=== PATIENT | male | born 1965 | race Caucasian/White ===

== ENCOUNTER 2017-05-19 21:11 | Emergency (ER) | payer OTHER ==
[2017-05-19] MEDS ORDERED: RX INFO: IV CONTRAST WAS GIVEN 1 EACH MISC MISCELLANE PRN (22:57)
[2017-05-19] MEDS ORDERED: SODIUM CHLORIDE 0.9% 1,000 ML IV STA ×2 (22:57)
--- NOTE | 2017-05-19 23:01 | ED ---
General Adult HPI - General Chief complaint: Back Pain/Injury Stated complaint: Back Pain Time Seen by Provider: 05/19/17 22:44 Source: patient, RN notes reviewed Mode of arrival: ambulatory Limitations: no limitations - History of Present Illness Initial comments: Patient 52-year-old male who presents emergency room today with chief complaint of increased left upper back pain over the last month. He does admit that he had a fall when he was walking bathroom and believes he passed out. He states he's had some pain in her left shoulder area since. He states worse with movements. He states he began feeling began a few days ago. Patient does admit that he had a fall. Patient does admit that he has felt a little short of breath over the last few days with this pain. Patient denies any other complaints or associated symptoms. Patient denies any recent fever, chills, chest pain, abdominal pain, nausea or vomiting, numbness or tingling, dysuria or hematuria, constipation or diarrhea, headaches or visual changes, or any other complaints. - Related Data Home Medications Medication Instructions Recorded Confirmed Adalimumab [Humira] 40 mg SQ Q14D 05/19/17 05/19/17 Folic Acid 1 mg PO DAILY 05/19/17 05/19/17 Methotrexate Sodium [Methotrexate] 12.5 mg PO SUAZO 05/19/17 05/19/17 Previous Rx's Medication Instructions Recorded Cyclobenzaprine [Flexeril] 10 mg PO TID #20 tab 05/20/17 Ibuprofen [Motrin] 600 mg PO Q6HR PRN #40 day 05/20/17 Allergies Allergy/AdvReac Type Severity Reaction Status Date / Time codeine Allergy Nausea & Verified 05/19/17 23:03 Vomiting Review of Systems ROS Statement: Those systems with pertinent positive or pertinent negative responses have been documented in the HPI. ROS Other: All systems not noted in ROS Statement are negative. Past Medical History Past Medical History: No Reported History Additional Past Medical History / Comment(s): arthritis History of Any Multi-Drug Resistant Organisms: None Reported Past Surgical History: No Surgical Hx Reported Past Psychological History: No Psychological Hx Reported Smoking Status: Current every day smoker Past Alcohol Use History: Daily Past Drug Use History: None Reported General Exam - General Exam Comments Initial Comments: General: The patient is awake and alert, in no distress, and does not appear acutely ill. Eye: Pupils are equal, round and reactive to light, extra-ocular movements are intact. No nystagmus. There is normal conjunctiva bilaterally. No signs of icterus. Ears, nose, mouth and throat: There are moist mucous membranes and no oral lesions. Neck: The neck is supple, there is no tenderness or JVD. Cardiovascular: There is a regular rate and rhythm. No murmur, rub or gallop is appreciated. Respiratory: Lungs are clear to auscultation, respirations are non-labored, breath sounds are equal. No wheezes, stridor, rales, or rhonchi. Gastrointestinal: Soft, non-distended, non-tender abdomen without masses or organomegaly noted. There is no rebound or guarding present. No CVA tenderness. Bowel sounds are unremarkable. Musculoskeletal: Normal ROM, no tenderness. Strength 5/5. Sensation intact. Pulses equal bilaterally 2+. Neurological: A&O x 3. CN II-XII intact, There are no obvious motor or sensory deficits. Coordination appears grossly intact. Speech is normal. Skin: Skin is warm and dry and no rashes or lesions are noted. Psychiatric: Cooperative, appropriate mood & affect, normal judgment. Limitations: no limitations Course Vital Signs 05/19/17 05/20/17 05/20/17 21:16 00:58 01:00 Temperature 98.1 F 98.8 F Pulse Rate 120 H 89 90 Respiratory 22 16 17 Rate Blood Pressure 145/90 128/70 115/71 O2 Sat by Pulse 97 99 98 Oximetry Medical Decision Making - Medical Decision Making Patient's labs been reviewed. Case discussed and seen by attending physician . Patient's pain is reproducible on exam. Patient's repeat vitals are stable. His CAT scan of the chest is negative for any sign of PE. At this time patient will be discharged home as he is more comfortable and advised follow-up family doctor tomorrow. - Lab Data Result diagrams: 05/19/17 23:15 05/19/17 23:15 Lab Results 05/19/17 05/19/17 05/19/17 Range/Units 23:15 23:15 23:15 WBC 8.7 (3.8-10.6) k/uL RBC 5.15 (4.30-5.90) m/uL Hgb 17.6 H (13.0-17.5) gm/dL Hct 53.0 (39.0-53.0) % MCV 102.9 H (80.0-100.0) fL MCH 34.1 (25.0-35.0) pg MCHC 33.1 (31.0-37.0) g/dL RDW 13.9 (11.5-15.5) % Plt Count 266 (150-450) k/uL Neutrophils % 75 % Lymphocytes % 14 % Monocytes % 9 % Eosinophils % 1 % Basophils % 1 % Neutrophils # 6.5 (1.3-7.7) k/uL Lymphocytes # 1.2 (1.0-4.8) k/uL Monocytes # 0.8 (0-1.0) k/uL Eosinophils # 0.1 (0-0.7) k/uL Basophils # 0.1 (0-0.2) k/uL Macrocytosis Slight Sodium 131 L (137-145) mmol/L Potassium 4.1 (3.5-5.1) mmol/L Chloride 95 L (98-107) mmol/L Carbon Dioxide 25 (22-30) mmol/L Anion Gap 11 mmol/L BUN 2 L (9-20) mg/dL Creatinine 0.60 L (0.66-1.25) mg/dL Est GFR (MDRD) Af Amer >60 (>60 ml/min/1.73 sqM) Est GFR (MDRD) Non-Af >60 (>60 ml/min/1.73 sqM) Glucose 103 H (74-99) mg/dL Calcium 9.7 (8.4-10.2) mg/dL Total Bilirubin 1.1 (0.2-1.3) mg/dL AST 172 H (17-59) U/L ALT 158 H (21-72) U/L Alkaline Phosphatase 108 (38-126) U/L Total Creatine Kinase 62 (55-170) U/L CK-MB (CK-2) 0.9 (0.0-2.4) ng/mL CK-MB (CK-2) Rel Index 1.5 Troponin I <0.012 (0.000-0.034) ng/mL Total Protein 7.2 (6.3-8.2) g/dL Albumin 4.4 (3.5-5.0) g/dL Disposition Clinical Impression: Back strain Disposition: HOME SELF-CARE Condition: Good Instructions: Thoracic Back Strain (ED) Additional Instructions: Please use medication as discussed. Please follow-up with family doctor in the next 2 days. Please return to emergency room if the symptoms increase or worsen or for any other concerns. Prescriptions: Cyclobenzaprine [Flexeril] 10 mg PO TID #20 tab Ibuprofen [Motrin] 600 mg PO Q6HR PRN #40 day PRN Reason: Pain Referrals: Rafael Quevedo MD [Primary Care Provider] - 1-2 days Time of Disposition: 01:16
[2017-05-19 23:28] LABS: Basophils # (A) 0.1 k/uL (0-0.2); Basophils % (A) 1 %; CH 35.6; CHCM 34.7; Eosinophils # (A) 0.1 k/uL (0-0.7); Eosinophils % (A) 1 %; HGB 17.6 gm/dL (13.0-17.5); Luc # (Auto) 0.09; Luc % (Auto) 1; Lymphocytes # (A) 1.2 k/uL (1.0-4.8); Lymphocytes % (A) 14 %; MCH 34.1 pg (25.0-35.0); MCHC 33.1 g/dL (31.0-37.0); MCV 102.9 fL (80.0-100.0); Macrocytosis Slight; Mean Platelet Volume 8.1; Monocytes # (A) 0.8 k/uL (0-1.0); Monocytes % (A) 9 %; Neutrophils # (A) 6.5 k/uL (1.3-7.7); Neutrophils % (A) 75 %; RBC 5.15 m/uL (4.30-5.90); RDW 13.9 % (11.5-15.5); WBC 8.7 k/uL (3.8-10.6); WBC (Perox) 8.04
[2017-05-19 23:39] LABS: ALT 158 U/L (21-72); AST 172 U/L (17-59); Alkaline Phosphatase 108 U/L (38-126); Anion Gap 11 mmol/L; Blood Urea Nitrogen 2 mg/dL (9-20); Calcium 9.7 mg/dL (8.4-10.2); Carbon Dioxide 25 mmol/L (22-30); Chloride 95 mmol/L (98-107); Glucose 103 mg/dL (74-99); Non-African American GFR(MDRD) >60 (>60 ml/min/1.73 sqM); Potassium 4.1 mmol/L (3.5-5.1); Sodium 131 mmol/L (137-145); Total Bilirubin 1.1 mg/dL (0.2-1.3); Total Protein 7.2 g/dL (6.3-8.2)
[2017-05-19 23:47] LABS: Creatine Kinase 62 U/L (55-170)
[2017-05-20] LABS: Creatine Kinase MB 0.9 ng/mL (0.0-2.4); Troponin I <0.012 ng/mL (0.000-0.034)
--- NOTE | 2017-05-20 00:23 | CT ---
EXAM: CT Angiography Chest With Intravenous Contrast CLINICAL HISTORY: Reason: pain TECHNIQUE: Axial computed tomographic angiography images of the chest with intravenous contrast using pulmonary embolism protocol. DLP is 125.70 mGy-cm. This CT exam was performed using one or more of the following dose reduction techniques: automated exposure control, adjustment of the mA and/or kV according to patient size, and/or use of iterative reconstruction technique. MIP reconstructed images were created and reviewed. CONTRAST: 82 mL of omni 350 administered intravenously. COMPARISON: No relevant prior studies available. FINDINGS: Pulmonary arteries: Unremarkable. No pulmonary embolism. Aorta: No acute findings. No thoracic aortic aneurysm. Lungs: Severe centrilobular emphysema. Right upper lobe fibrosis. No mass. Pleural space: Unremarkable. No significant effusion. No pneumothorax. Heart: Unremarkable. No cardiomegaly. No significant pericardial effusion. No evidence of RV dysfunction. Bones/joints: No acute fracture. No dislocation. Soft tissues: Unremarkable. Lymph nodes: Unremarkable. No enlarged lymph nodes. IMPRESSION: No acute findings. Severe centrilobular emphysema with right upper lobe fibrosis.
[2017-05-20 01:36] VITALS: BP 120/83; PULSE 72; RESP 18; TEMP 98.1
== END 2017-05-20 01:37 | disposition home or self-care (01) ==
LOC: EC 21:11
DX: S29.012A Strain of muscle and tendon of back wall of thorax, initial encounter (principal); R00.0 Tachycardia, unspecified; M25.512 Pain in left shoulder; R06.02 Shortness of breath; M19.90 Unspecified osteoarthritis, unspecified site; F17.200 Nicotine dependence, unspecified, uncomplicated; Z79.899 Other long term (current) drug therapy; Z88.5 Allergy status to narcotic agent; Y93.01 Activity, walking, marching and hiking; W19.XXXA Unspecified fall, initial encounter
CPT/HCPCS: 36415; 71275; 80053; 82550; 82553; 84484; 85025; 93005; 96360; 96361; 99284

== ENCOUNTER 2019-02-18 15:59 | Emergency (ER) | payer OTHER ==
[2019-02-18] MEDS ORDERED: SODIUM CHLORIDE 0.9% 1,000 ML IV STA (16:32)
--- NOTE | 2019-02-18 16:33 | ED ---
General Adult HPI - General Source: patient, RN notes reviewed Mode of arrival: ambulatory Limitations: no limitations <Kirill Patel - Last Filed: 02/18/19 16:32> <Doyle Dunn - Last Filed: 02/18/19 18:57> - General Chief complaint: Recheck/Abnormal Lab/Rx Stated complaint: Low potassium Time Seen by Provider: 02/18/19 16:28 - History of Present Illness Initial comments: This a 54-year-old male presents emergency Department with chief complaint of low potassium. Patient states he had an appointment today with Dr. Dixon who sent him over here secondary to potassium of 2.6. Patient states he had his labs done a few weeks ago. He denies any complaints this time. He did state that he had a recent EKG a few weeks ago which was normal though they told him that his heart rate is elevated today. He denies chest pain, shortness breath, headache or dizziness. He does have underlying rheumatoid arthritis in which she takes Humira and methotrexate but he was told to discontinue methotrexate today. He denies any excessive alcohol intake, diarrhea or vomiting. (Kirill Patel) - Related Data Home Medications Medication Instructions Recorded Confirmed Adalimumab [Humira] 40 mg SQ Q14D 05/19/17 02/18/19 Folic Acid 1 mg PO DAILY 05/19/17 02/18/19 Previous Rx's Medication Instructions Recorded Ibuprofen [Motrin] 600 mg PO Q6HR PRN #40 day 05/20/17 Allergies Allergy/AdvReac Type Severity Reaction Status Date / Time codeine Allergy Nausea & Verified 02/18/19 17:31 Vomiting Review of Systems ROS Other: All systems not noted in ROS Statement are negative. <Kirill Patel - Last Filed: 02/18/19 16:32> ROS Other: All systems not noted in ROS Statement are negative. <Doyle Dunn - Last Filed: 02/18/19 18:57> ROS Statement: Those systems with pertinent positive or pertinent negative responses have been documented in the HPI. Past Medical History Past Medical History: No Reported History Additional Past Medical History / Comment(s): arthritis History of Any Multi-Drug Resistant Organisms: None Reported Past Surgical History: No Surgical Hx Reported Past Psychological History: No Psychological Hx Reported Smoking Status: Current every day smoker Past Alcohol Use History: Daily Past Drug Use History: None Reported <Kirill Patel - Last Filed: 02/18/19 16:32> General Exam Limitations: no limitations General appearance: alert, in no apparent distress Head exam: Present: atraumatic, normocephalic, normal inspection Eye exam: Present: normal appearance, PERRL, EOMI. Absent: scleral icterus, conjunctival injection, periorbital swelling Respiratory exam: Present: normal lung sounds bilaterally. Absent: respiratory distress, wheezes, rales, rhonchi, stridor Cardiovascular Exam: Present: normal rhythm, tachycardia, normal heart sounds. Absent: systolic murmur, diastolic murmur, rubs, gallop, clicks GI/Abdominal exam: Present: soft, normal bowel sounds. Absent: distended, tende rness, guarding, rebound, rigid Neurological exam: Present: alert, oriented X3, CN II-XII intact Skin exam: Present: warm, dry, intact, normal color. Absent: rash <Kirill Patel - Last Filed: 02/18/19 16:32> General appearance: alert, in no apparent distress Head exam: Present: atraumatic, normocephalic, normal inspection Eye exam: Present: normal appearance, PERRL, EOMI. Absent: scleral icterus, conjunctival injection, periorbital swelling ENT exam: Present: normal exam, mucous membranes moist Neck exam: Present: normal inspection. Absent: tenderness, meningismus, lymphadenopathy Respiratory exam: Present: normal lung sounds bilaterally. Absent: respiratory distress, wheezes, rales, rhonchi, stridor Cardiovascular Exam: Present: regular rate, normal rhythm, normal heart sounds. Absent: systolic murmur, diastolic murmur, rubs, gallop, clicks GI/Abdominal exam: Present: soft, normal bowel sounds. Absent: distended, te nderness, guarding, rebound, rigid Extremities exam: Present: normal inspection, full ROM, normal capillary refill. Absent: tenderness, pedal edema, joint swelling, calf tenderness Back exam: Present: normal inspection Neurological exam: Present: alert, oriented X3, CN II-XII intact Psychiatric exam: Present: normal affect, normal mood Skin exam: Present: warm, dry, intact, normal color. Absent: rash <Doyle Dunn - Last Filed: 02/18/19 18:57> Course <Doyle Dunn - Last Filed: 02/18/19 18:57> Vital Signs 02/18/19 02/18/19 02/18/19 16:23 16:49 16:50 Temperature 98.1 F Pulse Rate 138 H Respiratory 22 15 18 Rate Blood Pressure 100/70 O2 Sat by Pulse 99 Oximetry 02/18/19 02/18/19 02/18/19 17:00 17:10 17:20 Temperature Pulse Rate 100 96 Respiratory 20 18 Rate Blood Pressure 114/79 114/79 114/79 O2 Sat by Pulse 97 98 Oximetry 02/18/19 02/18/19 17:30 17:40 Temperature Pulse Rate 96 Respiratory 16 19 Rate Blood Pressure 114/79 114/79 O2 Sat by Pulse 100 99 Oximetry - Reevaluation(s) Reevaluation #1: 02/18/19 18:56 Medical records reviewed (Doyle Dunn) Reevaluation #2: 02/18/19 18:56 Patient feels good without fever or any signs of infection (Doyle Dunn) Reevaluation #3: 02/18/19 18:56 Patient given oral potassium here in the ER encouraged increased diet (Doyle Dunn) EKG Findings - EKG Comments: EKG Findings:: EKG shows sinus tachycardia rate 119 DE 140 QRS 76 QTc 469 <Doyle Dunn - Last Filed: 02/18/19 18:57> Medical Decision Making - Lab Data Result diagrams: 02/18/19 16:47 02/18/19 16:47 - Radiology Data Radiology results: report reviewed (Chest x-rays negative for acute disease), image reviewed <Doyle Dunn - Last Filed: 02/18/19 18:57> - Medical Decision Making 51 female the ER for evaluation, here for low potassium. Potassium is replaced here in the ER patient can be discharged home (Doyle Dunn) - Lab Data Lab Results 02/18/19 02/18/19 02/18/19 Range/Units 16:18 16:47 16:47 WBC 20.0 H (3.8-10.6) k/uL RBC 4.22 L (4.30-5.90) m/uL Hgb 13.6 (13.0-17.5) gm/dL Hct 42.6 (39.0-53.0) % MCV 100.9 H (80.0-100.0) fL MCH 32.1 (25.0-35.0) pg MCHC 31.8 (31.0-37.0) g/dL RDW 16.3 H (11.5-15.5) % Plt Count 542 H (150-450) k/uL Neutrophils % 81 % Lymphocytes % 9 % Monocytes % 7 % Eosinophils % 1 % Basophils % 0 % Neutrophils # 16.2 H (1.3-7.7) k/uL Lymphocytes # 1.8 (1.0-4.8) k/uL Monocytes # 1.5 H (0-1.0) k/uL Eosinophils # 0.2 (0-0.7) k/uL Basophils # 0.1 (0-0.2) k/uL Anisocytosis Slight Macrocytosis Slight PT (9.0-12.0) sec INR (<1.2) APTT (22.0-30.0) sec Sodium 137 (137-145) mmol/L Potassium 2.5 L* (3.5-5.1) mmol/L Chloride 98 (98-107) mmol/L Carbon Dioxide 29 (22-30) mmol/L Anion Gap 10 mmol/L BUN 3 L (9-20) mg/dL Creatinine 0.49 L (0.66-1.25) mg/dL Est GFR (CKD-EPI)AfAm >90 (>60 ml/min/1.73 sqM) Est GFR (CKD-EPI)NonAf >90 (>60 ml/min/1.73 sqM) Glucose 135 H (74-99) mg/dL Calcium 8.6 (8.4-10.2) mg/dL Magnesium 1.8 (1.6-2.3) mg/dL Total Bilirubin 1.8 H (0.2-1.3) mg/dL AST 27 (17-59) U/L ALT 63 (21-72) U/L Alkaline Phosphatase 164 H (38-126) U/L Troponin I (0.000-0.034) ng/mL Total Protein 5.7 L (6.3-8.2) g/dL Albumin 2.6 L (3.5-5.0) g/dL Lipase 17 L (23-300) U/L TSH 0.954 (0.465-4.680) mIU/L Urine Color Yellow Urine Appearance Clear (Clear) Urine pH 7.0 (5.0-8.0) Ur Specific [place] 1.020 (1.001-1.035) Urine Protein Trace H (Negative) Urine Glucose (UA) Negative (Negative) Urine Ketones Trace H (Negative) Urine Blood Negative (Negative) Urine Nitrite Negative (Negative) Urine Bilirubin Negative (Negative) Urine Urobilinogen >12.0 (<2.0) mg/dL Ur Leukocyte Esterase Negative (Negative) 02/18/19 02/18/19 Range/Units 16:47 16:47 WBC (3.8-10.6) k/uL RBC (4.30-5.90) m/uL Hgb (13.0-17.5) gm/dL Hct (39.0-53.0) % MCV (80.0-100.0) fL MCH (25.0-35.0) pg MCHC (31.0-37.0) g/dL RDW (11.5-15.5) % Plt Count (150-450) k/uL Neutrophils % % Lymphocytes % % Monocytes % % Eosinophils % % Basophils % % Neutrophils # (1.3-7.7) k/uL Lymphocytes # (1.0-4.8) k/uL Monocytes # (0-1.0) k/uL Eosinophils # (0-0.7) k/uL Basophils # (0-0.2) k/uL Anisocytosis Macrocytosis PT 11.4 (9.0-12.0) sec INR 1.1 (<1.2) APTT 25.7 (22.0-30.0) sec Sodium (137-145) mmol/L Potassium (3.5-5.1) mmol/L Chloride (98-107) mmol/L Carbon Dioxide (22-30) mmol/L Anion Gap mmol/L BUN (9-20) mg/dL Creatinine (0.66-1.25) mg/dL Est GFR (CKD-EPI)AfAm (>60 ml/min/1.73 sqM) Est GFR (CKD-EPI)NonAf (>60 ml/min/1.73 sqM) Glucose (74-99) mg/dL Calcium (8.4-10.2) mg/dL Magnesium (1.6-2.3) mg/dL Total Bilirubin (0.2-1.3) mg/dL AST (17-59) U/L ALT (21-72) U/L Alkaline Phosphatase (38-126) U/L Troponin I <0.012 (0.000-0.034) ng/mL Total Protein (6.3-8.2) g/dL Albumin (3.5-5.0) g/dL Lipase (23-300) U/L TSH (0.465-4.680) mIU/L Urine Color Urine Appearance (Clear) Urine pH (5.0-8.0) Ur Specific [place] (1.001-1.035) Urine Protein (Negative) Urine Glucose (UA) (Negative) Urine Ketones (Negative) Urine Blood (Negative) Urine Nitrite (Negative) Urine Bilirubin (Negative) Urine Urobilinogen (<2.0) mg/dL Ur Leukocyte Esterase (Negative) Disposition <Kirill Patel M - Last Filed: 02/18/19 16:32> Is patient prescribed a controlled substance at d/c from ED?: No <Doyle Dunn - Last Filed: 02/18/19 18:57> Clinical Impression: Hypokalemia Disposition: HOME SELF-CARE Condition: Good Instructions (If sedation given, give patient instructions): Hypokalemia (ED) Referrals: Vu Garsia MD [Primary Care Provider] - 1-2 days
[2019-02-18 17:08] LABS: Anisocytosis Slight; Basophils # (A) 0.1 k/uL (0-0.2); Basophils % (A) 0 %; Eosinophils # (A) 0.2 k/uL (0-0.7); Eosinophils % (A) 1 %; HCT 42.6 % (39.0-53.0); HGB 13.6 gm/dL (13.0-17.5); Lymphocytes # (A) 1.8 k/uL (1.0-4.8); Lymphocytes % (A) 9 %; MCH 32.1 pg (25.0-35.0); MCHC 31.8 g/dL (31.0-37.0); MCV 100.9 fL (80.0-100.0); Macrocytosis Slight; Mean Platelet Volume 7.8; Monocytes # (A) 1.5 k/uL (0-1.0); Monocytes % (A) 7 %; Neutrophils # (A) 16.2 k/uL (1.3-7.7); Neutrophils % (A) 81 %; Platelet Count 542 k/uL (150-450); RBC 4.22 m/uL (4.30-5.90); RDW 16.3 % (11.5-15.5)
[2019-02-18 17:12] LABS: ALT 63 U/L (21-72); AST 27 U/L (17-59); Albumin 2.6 g/dL (3.5-5.0); Alkaline Phosphatase 164 U/L (38-126); Anion Gap 10 mmol/L; Blood Urea Nitrogen 3 mg/dL (9-20); Calcium 8.6 mg/dL (8.4-10.2); Carbon Dioxide 29 mmol/L (22-30); Chloride 98 mmol/L (98-107); Glucose 135 mg/dL (74-99); INR 1.1 (<1.2); Lipase 17 U/L (23-300); Magnesium 1.8 mg/dL (1.6-2.3); Partial Thromboplastin Time 25.7 sec (22.0-30.0); Prothrombin Time 11.4 sec (9.0-12.0); Sodium 137 mmol/L (137-145); Total Bilirubin 1.8 mg/dL (0.2-1.3); Total Protein 5.7 g/dL (6.3-8.2)
[2019-02-18 17:18] LABS: Potassium 2.5 mmol/L (3.5-5.1)
[2019-02-18] MEDS ORDERED: POTASSIUM CHLORIDE 20 MEQ in WATER FOR INJECTION 1 100ML.BAG IVPB STA (17:20)
[2019-02-18] MEDS ORDERED: POTASSIUM CHLORIDE ER 10 MEQ TAB.ER.PRT PO STA (17:20)
[2019-02-18] MEDS ORDERED: POTASSIUM CHLORIDE ER 20 MEQ TAB.ER PO STA ×2 (17:20→18:57)
[2019-02-18 17:51] VITALS: BP 114/79; PULSE 96; RESP 19
--- NOTE | 2019-02-18 18:05 | XR ---
EXAMINATION: XR chest 2V DATE AND TIME: 02/18/2019 5:02 PM CLINICAL INDICATION: PHH; Chest Pain TECHNIQUE: Departmental protocol COMPARISON: 04/03/2015 FINDINGS: There is marked hyperinflation with attenuation of upper lobe vasculature consistent with emphysema. The lungs are clear. The pleural spaces are negative. The cardiac silhouette is not enlarged. The remainder of the mediastinal silhouette is unremarkable. The skeletal structures and soft tissues are negative for acute findings. IMPRESSION: NO ACUTE PROCESS.
[2019-02-18 18:32] LABS: Appearance,Urine Clear (Clear); Bilirubin,Urine Negative (Negative); Blood,Urine Negative (Negative); Color,Urine Yellow; Glucose,Urine (UA) Negative (Negative); Ketones,Urine Trace (Negative); Leukocyte Esterase,Urine Negative (Negative); Nitrite,Urine Negative (Negative); Protein,Urine Trace (Negative); Urobilinogen,Urine >12.0 mg/dL (<2.0)
[2019-02-18 20:49] VITALS: TEMP 98
== END 2019-02-18 20:47 | disposition home or self-care (01) ==
LOC: EC 15:59
DX: E87.6 Hypokalemia (principal); M06.9 Rheumatoid arthritis, unspecified; F17.200 Nicotine dependence, unspecified, uncomplicated; Z79.899 Other long term (current) drug therapy; Z88.5 Allergy status to narcotic agent
CPT/HCPCS: 36415; 93005; 80053; 84443; 83690; 83735; 84484; 85025; 85610; 85730; 81003; 87040; 71046; 99285; 96365; 96366; 96361; J3480

== ENCOUNTER 2019-03-03 04:53 | Inpatient (IN) | payer OTHER ==
--- NOTE | 2019-03-03 05:18 | ED ---
Fall HPI - General Chief Complaint: Fall Stated Complaint: Weakness Time Seen by Provider: 03/03/19 05:17 Source: patient, EMS Mode of arrival: EMS - History of Present Illness Initial Comments: Patient is a 54-year-old man who presents to be evaluated at the urging of his family. He had been at the store yesterday in the afternoon when he had a fall. The patient states that he had been standing behind a shopping cart which another family pushed, because they did not realize she was leaning on it. The patient was knocked over by a shopping cart and fell landing on his buttock and back. The patient denies significant injury. He did not strike his head or neck. He denies pain. Patient does note that he has had generalized weakness and fatigue which seems to have been increasing over the past week. No fever or chills. Remainder of the review of systems is negative. The patient does appear somewhat cachectic but denies recent weight loss. He states that in fact he believes he has gained a few pounds over the past weeks. MD Complaint: fall Onset/Timin -: hour(s) Fall From: standing Fall Witnessed: yes, by family Place Fall Occurred: other (At a store) Loss of Consciousness: none Prolonged Down Time?: no Symptoms Prior to Fall: lightheadedness Context: tripped/slipped Associated Symptoms: other - Related Data Home Medications Medication Instructions Recorded Confirmed Adalimumab [Humira] 40 mg SQ Q14D 05/19/17 03/03/19 Folic Acid 1 mg PO DAILY 05/19/17 03/03/19 Amoxicillin/Potassium Clav 500 mg PO BID 03/03/19 03/03/19 [Augmentin 500-125 Tablet] Potassium Chloride ER [K-Dur 20] 20 meq PO DAILY 03/03/19 03/03/19 Previous Rx's Medication Instructions Recorded Ibuprofen [Motrin] 600 mg PO Q6HR PRN #40 day 05/20/17 Allergies Allergy/AdvReac Type Severity Reaction Status Date / Time codeine Allergy Nausea & Verified 03/03/19 07:14 Vomiting Review of Systems ROS Statement: Those systems with pertinent positive or pertinent negative responses have been documented in the HPI. ROS Other: All systems not noted in ROS Statement are negative. Past Medical History Past Medical History: No Reported History Additional Past Medical History / Comment(s): arthritis History of Any Multi-Drug Resistant Organisms: None Reported Past Surgical History: No Surgical Hx Reported Past Psychological History: No Psychological Hx Reported Smoking Status: Current every day smoker Past Alcohol Use History: Daily Past Drug Use History: None Reported General Exam Limitations: no limitations Course Vital Signs 03/03/19 03/03/19 03/03/19 04:55 04:57 05:00 Temperature 97.6 F Pulse Rate 131 H Respiratory 19 21 Rate Blood Pressure 130/71 110/92 O2 Sat by Pulse 98 99 99 Oximetry 03/03/19 03/03/19 03/03/19 05:30 06:30 07:01 Temperature Pulse Rate 118 H 115 H Respiratory 15 Rate Blood Pressure 115/90 109/85 112/83 O2 Sat by Pulse 98 Oximetry Medical Decision Making - Lab Data Result diagrams: 03/03/19 06:00 03/03/19 06:00 Lab Results 03/03/19 03/03/19 03/03/19 Range/Units 06:00 06:00 06:00 WBC 22.8 H (3.8-10.6) k/uL RBC 4.18 L (4.30-5.90) m/uL Hgb 13.5 (13.0-17.5) gm/dL Hct 42.7 (39.0-53.0) % MCV 102.3 H (80.0-100.0) fL MCH 32.2 (25.0-35.0) pg MCHC 31.5 (31.0-37.0) g/dL RDW 17.6 H (11.5-15.5) % Plt Count 427 (150-450) k/uL Neutrophils % 77 % Lymphocytes % 14 % Monocytes % 6 % Eosinophils % 1 % Basophils % 1 % Neutrophils # 17.6 H (1.3-7.7) k/uL Lymphocytes # 3.2 (1.0-4.8) k/uL Monocytes # 1.4 H (0-1.0) k/uL Eosinophils # 0.1 (0-0.7) k/uL Basophils # 0.2 (0-0.2) k/uL Anisocytosis Slight Macrocytosis Moderate Sodium 135 L (137-145) mmol/L Potassium 3.4 L (3.5-5.1) mmol/L Chloride 102 (98-107) mmol/L Carbon Dioxide 23 (22-30) mmol/L Anion Gap 10 mmol/L BUN 13 (9-20) mg/dL Creatinine 0.54 L (0.66-1.25) mg/dL Est GFR (CKD-EPI)AfAm >90 (>60 ml/min/1.73 sqM) Est GFR (CKD-EPI)NonAf >90 (>60 ml/min/1.73 sqM) Glucose 101 H (74-99) mg/dL Plasma Lactic Acid [place] 2.7 H* (0.7-2.0) mmol/L Calcium 8.2 L (8.4-10.2) mg/dL Magnesium 2.0 (1.6-2.3) mg/dL Total Bilirubin 2.2 H (0.2-1.3) mg/dL AST 83 H (17-59) U/L ALT 91 H (21-72) U/L Alkaline Phosphatase 179 H (38-126) U/L Total Protein 6.1 L (6.3-8.2) g/dL Albumin 2.6 L (3.5-5.0) g/dL Urine Color Urine Appearance (Clear) Urine pH (5.0-8.0) Ur Specific [place] (1.001-1.035) Urine Protein (Negative) Urine Glucose (UA) (Negative) Urine Ketones (Negative) Urine Blood (Negative) Urine Nitrite (Negative) Urine Bilirubin (Negative) Urine Urobilinogen (<2.0) mg/dL Ur Leukocyte Esterase (Negative) Urine RBC (0-5) /hpf Urine WBC (0-5) /hpf Hyaline Casts (0-2) /lpf Urine Mucus (None) /hpf 03/03/19 Range/Units 07:00 WBC (3.8-10.6) k/uL RBC (4.30-5.90) m/uL Hgb (13.0-17.5) gm/dL Hct (39.0-53.0) % MCV (80.0-100.0) fL MCH (25.0-35.0) pg MCHC (31.0-37.0) g/dL RDW (11.5-15.5) % Plt Count (150-450) k/uL Neutrophils % % Lymphocytes % % Monocytes % % Eosinophils % % Basophils % % Neutrophils # (1.3-7.7) k/uL Lymphocytes # (1.0-4.8) k/uL Monocytes # (0-1.0) k/uL Eosinophils # (0-0.7) k/uL Basophils # (0-0.2) k/uL Anisocytosis Macrocytosis Sodium (137-145) mmol/L Potassium (3.5-5.1) mmol/L Chloride (98-107) mmol/L Carbon Dioxide (22-30) mmol/L Anion Gap mmol/L BUN (9-20) mg/dL Creatinine (0.66-1.25) mg/dL Est GFR (CKD-EPI)AfAm (>60 ml/min/1.73 sqM) Est GFR (CKD-EPI)NonAf (>60 ml/min/1.73 sqM) Glucose (74-99) mg/dL Plasma Lactic Acid [place] (0.7-2.0) mmol/L Calcium (8.4-10.2) mg/dL Magnesium (1.6-2.3) mg/dL Total Bilirubin (0.2-1.3) mg/dL AST (17-59) U/L ALT (21-72) U/L Alkaline Phosphatase (38-126) U/L Total Protein (6.3-8.2) g/dL Albumin (3.5-5.0) g/dL Urine Color Dark Brown Urine Appearance Cloudy (Clear) Urine pH 6.5 (5.0-8.0) Ur Specific [place] 1.029 (1.001-1.035) Urine Protein 1+ H (Negative) Urine Glucose (UA) Trace H (Negative) Urine Ketones 2+ H (Negative) Urine Blood Trace H (Negative) Urine Nitrite Negative (Negative) Urine Bilirubin 1+ H (Negative) Urine Urobilinogen >12.0 (<2.0) mg/dL Ur Leukocyte Esterase Trace H (Negative) Urine RBC 4 (0-5) /hpf Urine WBC 24 H (0-5) /hpf Hyaline Casts 19 H (0-2) /lpf Urine Mucus Many H (None) /hpf - EKG Data -: EKG Interpreted by Sd EKG shows normal: sinus rhythm, axis (Normal), intervals (Normal), QRS complexes (Normal), ST-T waves (Normal) Rate: tachycardia (Rate approximately 129 bpm) Disposition Clinical Impression: Fall, Urinary tract infection, Lactic acidosis Disposition: ADMITTED IP TO THIS HOSP Condition: Poor Is patient prescribed a controlled substance at d/c from ED?: No Referrals: Vu Garsia MD [Primary Care Provider] - 1-2 days
[2019-03-03] MEDS ORDERED: SODIUM CHLORIDE 0.9% 500 ML 500 ML IV ONE (06:01)
[2019-03-03 06:27] LABS: Anisocytosis Slight; Basophils # (A) 0.2 k/uL (0-0.2); Basophils % (A) 1 %; Eosinophils # (A) 0.1 k/uL (0-0.7); Eosinophils % (A) 1 %; HCT 42.7 % (39.0-53.0); HGB 13.5 gm/dL (13.0-17.5); Lymphocytes # (A) 3.2 k/uL (1.0-4.8); Lymphocytes % (A) 14 %; MCH 32.2 pg (25.0-35.0); MCHC 31.5 g/dL (31.0-37.0); MCV 102.3 fL (80.0-100.0); Macrocytosis Moderate; Mean Platelet Volume 8.1; Monocytes # (A) 1.4 k/uL (0-1.0); Monocytes % (A) 6 %; Neutrophils # (A) 17.6 k/uL (1.3-7.7); Neutrophils % (A) 77 %; Platelet Count 427 k/uL (150-450); RBC 4.18 m/uL (4.30-5.90); RDW 17.6 % (11.5-15.5); WBC 22.8 k/uL (3.8-10.6)
--- NOTE | 2019-03-03 06:31 | XR ---
EXAM: XR Chest, 2 Views CLINICAL HISTORY: ITS.REASON XR Reason: Pain TECHNIQUE: Frontal and lateral views of the chest. COMPARISON: 02/18/2019 FINDINGS: Lungs: Emphysematous changes as on prior. Hyperinflation of the lungs. Similar mild linear scarring/chronic changes in the right upper lobe. Pleural space: Unremarkable. No pneumothorax. Heart: Unremarkable. No cardiomegaly. Mediastinum: Unremarkable. Bones/joints: Unremarkable. Upper abdomen: Partially visualized dilated small bowel loops in the upper abdomen. IMPRESSION: 1. No evidence of acute cardiopulmonary disease. 2. Stable findings of emphysema. 3. Partially visualized dilated small bowel loops in the upper abdomen.
[2019-03-03 06:40] LABS: ALT 91 U/L (21-72); AST 83 U/L (17-59); African American GFR (CKD) >90 (>60 ml/min/1.73 sqM); Albumin 2.6 g/dL (3.5-5.0); Alkaline Phosphatase 179 U/L (38-126); Anion Gap 10 mmol/L; Blood Urea Nitrogen 13 mg/dL (9-20); Calcium 8.2 mg/dL (8.4-10.2); Carbon Dioxide 23 mmol/L (22-30); Chloride 102 mmol/L (98-107); Glucose 101 mg/dL (74-99); Potassium 3.4 mmol/L (3.5-5.1); Sodium 135 mmol/L (137-145); Total Bilirubin 2.2 mg/dL (0.2-1.3); Total Protein 6.1 g/dL (6.3-8.2)
[2019-03-03] MEDS ORDERED: SODIUM CHLORIDE 0.9% 1,000 ML IV ONE (06:52)
[2019-03-03 07:21] LABS: Appearance,Urine Cloudy (Clear); Bilirubin,Urine 1+ (Negative); Blood,Urine Trace (Negative); Color,Urine Dark Brown; Glucose,Urine (UA) Trace (Negative); Hyaline Casts,Urine 19 /lpf (0-2); Ketones,Urine 2+ (Negative); Leukocyte Esterase,Urine Trace (Negative); Mucus,Urine Many /hpf; Nitrite,Urine Negative (Negative); PH, Urine 6.5 (5.0-8.0); Protein,Urine 1+ (Negative); RBC,Urine 4 /hpf (0-5); Specific Gravity,Urine 1.029 (1.001-1.035); Urobilinogen,Urine >12.0 mg/dL (<2.0); WBC,Urine 24 /hpf (0-5)
[2019-03-03] MEDS ORDERED: ONDANSETRON 4 MG/2 ML VIAL IVP STA (07:39)
[2019-03-03] MEDS ORDERED: FAMOTIDINE 20 MG/2 ML VIAL IV SCH (09:00)
[2019-03-03] MEDS ORDERED: Potassium Replacement Protocol 1 EACH MISC MISCELLANE PRN (10:47)
[2019-03-03] MEDS: POTASSIUM CHLORIDE ER 20 MEQ TAB.ER PO SCH (11:03)
[2019-03-03] MEDS ORDERED: ONDANSETRON 4 MG/2 ML VIAL IVP PRN (11:07)
[2019-03-03] MEDS ORDERED: IBUPROFEN 600 MG TAB PO PRN (11:30)
[2019-03-03] MEDS ORDERED: IBUPROFEN 400 MG TAB PO PRN (11:32)
--- NOTE | 2019-03-03 11:32 | P.HPIM ---
History of Present Illness H&P Date: 03/03/19 This is a 54-year-old male patient who presented to the ER with complaints of a fall with overall increased weakness. Patient was urged by family members to come to the ER. Patient reports he was at the grocery store in the grocery cart was moved patient fell onto his buttocks. Family is currently at bedside. Per patient and family he's had increased weakness with nausea and vomiting over the past few days. Per patient's family patient has had decreased appetite. Patient reports that his only health history includes rheumatoid arthritis which he follows with endocrinology . Patient does report he has been treated for an ear infection that he states feels much improved. Patient also has poor dental hygiene. Per patient's family patient is very reluctant to go to health care providers. Patient denies any fevers at home. Patient denies any chest pain or shortness of breath. Chest x-ray completed showing no evidence of acute cardiopulmonary disease. Stable findings of emphysema. Partially visualized dilated small bowel loops in the upper abdomen. EKG completed showing sinus tachycardia. Patient did receive 2 L fluid boluses in ER. Patient's white blood cell count elevated at 22.8 lactic acid 2.7. Patient started on Rocephin infectious disease has been consulted. UA positive for urinary tract infection. Urine culture, blood culture and sputum cultures have been ordered. Patient also having elevated liver enzymes. Total bili 2.2 AST 83 AST 91 alkaline phosphatase 179. Abdominal ultrasound will be ordered. Due to patient's nausea amylase and lipase will be ordered. At This time patient is resting comfortably in bed. Family is at bedside all questions answered. Review of Systems Please refer to HPI otherwise unremarkable Past Medical History Past Medical History: Rheumatoid Arthritis (RA) Additional Past Medical History / Comment(s): Severe rheumatoid arthritis History of Any Multi-Drug Resistant Organisms: None Reported Past Surgical History: No Surgical Hx Reported Additional Past Surgical History / Comment(s): Colonoscopy-normal Past Anesthesia/Blood Transfusion Reactions: No Reported Reaction Smoking Status: Current every day smoker - Past Family History Mother Additional Family Medical History / Comment(s): Pt states mother is possibly from cancer. Father Additional Family Medical History / Comment(s): Pt states father is healthy except for alot of hernias/repairs. Medications and Allergies Home Medications Medication Instructions Recorded Confirmed Type Adalimumab [Humira] 40 mg SQ Q14D 05/19/17 03/03/19 History Folic Acid 1 mg PO DAILY 05/19/17 03/03/19 History Ibuprofen [Motrin] 600 mg PO Q6HR PRN #40 day 05/20/17 03/03/19 Rx Amoxicillin/Potassium Clav 500 mg PO BID 03/03/19 03/03/19 History [Augmentin 500-125 Tablet] Potassium Chloride ER [K-Dur 20] 20 meq PO DAILY 03/03/19 03/03/19 History Allergies Allergy/AdvReac Type Severity Reaction Status Date / Time codeine Allergy Nausea & Verified 03/03/19 07:14 Vomiting Physical Exam Vitals: Vital Signs Temp Pulse Pulse Resp BP BP Pulse Ox 03/03/19 09:42 97.8 F 109 H 16 119/86 96 03/03/19 09:30 98.0 F 103 H 18 120/85 99 03/03/19 09:00 102 H 18 107/81 99 03/03/19 08:30 103 H 18 133/87 99 03/03/19 08:00 103 H 18 122/86 99 03/03/19 07:30 101 H 18 112/83 100 03/03/19 07:01 115 H 112/83 03/03/19 06:30 109/85 98 03/03/19 05:30 118 H 15 115/90 03/03/19 05:00 21 110/92 99 03/03/19 04:57 99 03/03/19 04:55 97.6 F 131 H 19 130/71 98 Intake and Output 03/02/19 03/03/19 03/03/19 22:59 06:59 14:59 Other: Weight 66.678 kg Head normocephalic Neck supple Lungs clear to auscultation bilaterally no wheezing or crackles Heart regular rate and rhythm S1-S2, no rub or gallop Abdomen is soft nontender nondistended positive bowel sounds no hepatos plenomegaly Extremities no edema Neuro alert and orientated to 3 Gen. Patient does appear emaciated, poor dental hygiene. Results CBC & Chem 7: 03/03/19 06:00 03/03/19 06:00 Labs: Abnormal Lab Results - Last 24 Hours (Table) 03/03/19 03/03/19 03/03/19 Range/Units 06:00 06:00 06:00 WBC 22.8 H (3.8-10.6) k/uL RBC 4.18 L (4.30-5.90) m/uL MCV 102.3 H (80.0-100.0) fL RDW 17.6 H (11.5-15.5) % Neutrophils # 17.6 H (1.3-7.7) k/uL Monocytes # 1.4 H (0-1.0) k/uL Sodium 135 L (137-145) mmol/L Potassium 3.4 L (3.5-5.1) mmol/L Creatinine 0.54 L (0.66-1.25) mg/dL Glucose 101 H (74-99) mg/dL Plasma Lactic Acid Anderson 2.7 H* (0.7-2.0) mmol/L Calcium 8.2 L (8.4-10.2) mg/dL Total Bilirubin 2.2 H (0.2-1.3) mg/dL AST 83 H (17-59) U/L ALT 91 H (21-72) U/L Alkaline Phosphatase 179 H (38-126) U/L Total Protein 6.1 L (6.3-8.2) g/dL Albumin 2.6 L (3.5-5.0) g/dL Urine Protein (Negative) Urine Glucose (UA) (Negative) Urine Ketones (Negative) Urine Blood (Negative) Urine Bilirubin (Negative) Ur Leukocyte Esterase (Negative) Urine WBC (0-5) /hpf Hyaline Casts (0-2) /lpf Urine Mucus (None) /hpf 03/03/19 Range/Units 07:00 WBC (3.8-10.6) k/uL RBC (4.30-5.90) m/uL MCV (80.0-100.0) fL RDW (11.5-15.5) % Neutrophils # (1.3-7.7) k/uL Monocytes # (0-1.0) k/uL Sodium (137-145) mmol/L Potassium (3.5-5.1) mmol/L Creatinine (0.66-1.25) mg/dL Glucose (74-99) mg/dL Plasma Lactic Acid Anderson (0.7-2.0) mmol/L Calcium (8.4-10.2) mg/dL Total Bilirubin (0.2-1.3) mg/dL AST (17-59) U/L ALT (21-72) U/L Alkaline Phosphatase (38-126) U/L Total Protein (6.3-8.2) g/dL Albumin (3.5-5.0) g/dL Urine Protein 1+ H (Negative) Urine Glucose (UA) Trace H (Negative) Urine Ketones 2+ H (Negative) Urine Blood Trace H (Negative) Urine Bilirubin 1+ H (Negative) Ur Leukocyte Esterase Trace H (Negative) Urine WBC 24 H (0-5) /hpf Hyaline Casts 19 H (0-2) /lpf Urine Mucus Many H (None) /hpf Thrombosis Risk Factor Assmnt - Choose All That Apply Any of the Below Risk Factors Present?: Yes Each Factor Represents 1 point: Age 41-60 years Other Risk Factors: No Other congenital or acquired thrombophilia - If yes, enter type in comment: No Thrombosis Risk Factor Assessment Total Risk Factor Score: 1 Thrombosis Risk Factor Assessment Level: Low Risk Assessment and Plan Assessment: 1. Sepsis present on admit possibly due to urinary tract infection. Lactic acid elevated at 2.7. White blood cell 22.8. Patient started on Rocephin. Infectious disease has been consulted. Blood and urine and sputum cultures ordered 2. Decreased appetite with nausea and diarrhea. Abdominal ultrasound ordered. Amylase and lipase ordered. Dietitian consulted 3. Elevated liver enzymes. Abdominal ultrasound has been ordered. Patient does have a history of EtOH but has not drank alcohol in 2 years 4. Tachycardia. EKG upon arrival showing sinus tachycardia with a heart rate of 129. received 2 L fluid bolus Patient's heart rate has improved to low 100s. Continue fluid likely due to dehydration and sepsis. Cardiac monitoring ordered 5. Poor dental hygiene. Per patient and family patient has not followed with dentist due to personal fears. 6. Nicotine dependence. Patient educated on smoking sensation greater than 3 minutes on smoking sensation nicotine patch will be ordered. 7. History of severe rheumatoid arthritis. Patient follows with endocrinology. Patient maintained on Humira 8. History of EtOH. Denies any alcohol use for 2 years DVT prophylaxis heparin. GI prophylaxis Protonix Time with Patient: Greater than 30 (Greater than 60% of the total time spent in counseling and coordination of care. I performed an examination of the patient and discussed their management with the Nurse Practitioner. I have reviewed the Nurse Practitioner's notes and agree with the documented findings and plan of care)
[2019-03-03 11:33] LABS: Amylase 32 U/L (30-110); Lipase 74 U/L (23-300)
[2019-03-03] MEDS: SODIUM CHLORIDE 0.9% 1,000 ML IV SCH ×2 (12:34→23:14)
[2019-03-03 13:41] VITALS: BMI 15.6
--- NOTE | 2019-03-03 13:54 | US ---
EXAMINATION TYPE: US abdomen complete DATE OF EXAM: 03/03/2019 COMPARISON: NONE CLINICAL HISTORY: nausea and vomitting. Patient states passing out yesterday, NPO, N/V EXAM MEASUREMENTS: Liver Length: 16.0 cm Gallbladder Wall: 0.2 cm CHD: 0.6 cm Spleen: 6.9 cm Right Kidney: 10.4 x 5.0 x 4.3 cm Left Kidney: 9.7 x 4.9 x 5.5 cm Suboptimal visualization due to overlying bowel gas Pancreas: Obscured by bowel gas Liver: There is increased echogenicity of the hepatic parenchyma with diminished visualization of th e portal triads most commonly relating to hepatic steatosis and limiting evaluation for underlying he patic masses. Limited visualization due to bowel gas. Gallbladder: Mobile posterior echogenic echoes. Echogenic foci seen within posterior echoes- 0.4 cm Evidence for sonographic Sanchez's sign: neg CBD: Obscured by overlying bowel gas CHD: wnl Spleen: Limited visualization Right Kidney: No hydronephrosis or masses seen Left Kidney: upper pole medial hypoechoic lesion - 1.0 x 0.8 x 0.8 cm Upper IVC: limited visualization Abd Aorta: Obscured by overlying bowel gas The liver is homogenous. The intrahepatic portion of the IVC and proximal abdominal aorta are within normal limits. Common bile duct and pancreas are obscured by overlying bowel gas. The spleen is unre markable. Kidneys are symmetric and free of hydronephrosis. IMPRESSION: 1. Dependent gallbladder sludge and cholelithiasis. No current sonographic evidence of acute cholecys titis. 2. Sonographic findings most compatible with hepatic steatosis overall appearing moderate in degree. Correlate with liver function tests. 3. Left renal lesion does not demonstrate definitive characteristics of a cyst and could be further e valuated with three-phase enhanced CT. 4. Obscuration of the pancreas by overlying bowel gas.
[2019-03-03] MEDS ORDERED: POTASSIUM CHLORIDE ER 20 MEQ TAB.ER PO STA (18:05)
--- NOTE | 2019-03-03 18:44 | CT ---
EXAMINATION TYPE: CT brain wo con DATE OF EXAM: 03/03/2019 COMPARISON: None HISTORY: Increased falls and weakness CT DLP: 1077.6 mGycm Automated exposure control for dose reduction was used. FINDINGS: There is mild cerebral cortical atrophy. There is no mass effect nor midline shift. There is no sign of intracranial hemorrhage. Calvarium is intact. IMPRESSION: CEREBRAL ATROPHY. NO ACUTE INTRACRANIAL ABNORMALITY.
[2019-03-03] MEDS: FAMOTIDINE 20 MG TAB PO SCH (20:32)
[2019-03-03] MEDS: HEPARIN SODIUM,PORCINE 5,000 UNIT/ML 1 ML VIAL SQ SCH (20:32)
--- NOTE | 2019-03-03 22:26 | P.CONS ---
History of Present Illness - Reason for Consult Consult date: 03/03/19 Infection/sepsis Requesting physician: Vu Garsia - Chief Complaint Weakness and fall - History of Present Illness Patient is a 54-year-old male who was put into the ER by the family after apparently the patient had did have a fall while he was at the [employer] tore the patient said he went for shopping this morning he was feeling very weak and tired and no energy the patient said he tried to push himself however he felt week to the point that he fell to the ground, patient subsequently was brought into the ER with the family patient denies any high-grade fever or chills denies having any headache or urinary symptoms no chest pain shortness of breath or cough. Denies significant abdominal pain nausea but no vomiting and no diarrhea no significant burning or frequency of urine with the symptom has the patient has been evaluated by the ER physician patient had did have a elevated white count of 22,000 also elevated liver enzymes and elevated lactic acid his UA was slightly positive chest x-ray was negative for any pneumonia and ultrasound of the abdominal did show gallstones but no evidence of cholecystitis CBD could not be visualized this patient has been started on Rocephin 1 g every 12hr infectious disease was consulted for further recommendation regarding Antibiotic therapy Review of Systems Positive points has been mentioned in HPI rest of the systems negative Past Medical History Past Medical History: Rheumatoid Arthritis (RA) Additional Past Medical History / Comment(s): Severe rheumatoid arthritis History of Any Multi-Drug Resistant Organisms: None Reported Past Surgical History: No Surgical Hx Reported Additional Past Surgical History / Comment(s): Colonoscopy-normal Past Anesthesia/Blood Transfusion Reactions: No Reported Reaction Smoking Status: Current every day smoker - Past Family History Mother Additional Family Medical History / Comment(s): Pt states mother is possibly from cancer. Father Additional Family Medical History / Comment(s): Pt states father is healthy exce pt for alot of hernias/repairs. Medications and Allergies Home Medications Medication Instructions Recorded Confirmed Type Adalimumab [Humira] 40 mg SQ Q14D 05/19/17 03/03/19 History Folic Acid 1 mg PO DAILY 05/19/17 03/03/19 History Ibuprofen [Motrin] 600 mg PO Q6HR PRN #40 day 05/20/17 03/03/19 Rx Amoxicillin/Potassium Clav 500 mg PO BID 03/03/19 03/03/19 History [Augmentin 500-125 Tablet] Potassium Chloride ER [K-Dur 20] 20 meq PO DAILY 03/03/19 03/03/19 History Allergies Allergy/AdvReac Type Severity Reaction Status Date / Time codeine Allergy Nausea & Verified 03/03/19 07:14 Vomiting Physical Exam Vitals: Vital Signs Temp Pulse Pulse Resp BP BP Pulse Ox 03/03/19 11:08 109 H 16 03/03/19 09:42 97.8 F 109 H 16 119/86 96 03/03/19 09:30 98.0 F 103 H 18 120/85 99 03/03/19 09:00 102 H 18 107/81 99 03/03/19 08:30 103 H 18 133/87 99 03/03/19 08:00 103 H 18 122/86 99 03/03/19 07:30 101 H 18 112/83 100 03/03/19 07:01 115 H 112/83 03/03/19 06:30 109/85 98 03/03/19 05:30 118 H 15 115/90 03/03/19 05:00 21 110/92 99 03/03/19 04:57 99 03/03/19 04:55 97.6 F 131 H 19 130/71 98 Intake and Output 03/02/19 03/03/19 03/03/19 22:59 06:59 14:59 Other: Voiding Method Toilet Weight 66.678 kg 50.802 kg GENERAL DESCRIPTION: Middle-aged male lying in bed, no distress. No tachypnea or accessory muscle of respiration use. HEENT: Shows Pallor , no scleral icterus. Oral mucous membrane is dry. No pharyngeal erythema or thrush, poor oral dentition NECK: Trachea central, no thyromegaly. LUNGS: Unlabored breathing. Clear to auscultation anteriorly. No wheeze or crackle. HEART: S1, S2, regular rate and rhythm. No loud murmur ABDOMEN: Soft, no tenderness , guarding or rigidity, no organomegaly EXTREMITIES: No edema of feet. SKIN: No rash, no masses palpable. NEUROLOGICAL: The patient is awake, alert, oriented x3, mood and affect normal Results CBC & Chem 7: 03/03/19 06:00 03/03/19 06:00 Labs: Abnormal Lab Results - Last 24 Hours (Table) 03/03/19 03/03/19 03/03/19 Range/Units 06:00 06:00 06:00 WBC 22.8 H (3.8-10.6) k/uL RBC 4.18 L (4.30-5.90) m/uL MCV 102.3 H (80.0-100.0) fL RDW 17.6 H (11.5-15.5) % Neutrophils # 17.6 H (1.3-7.7) k/uL Monocytes # 1.4 H (0-1.0) k/uL Sodium 135 L (137-145) mmol/L Potassium 3.4 L (3.5-5.1) mmol/L Creatinine 0.54 L (0.66-1.25) mg/dL Glucose 101 H (74-99) mg/dL Plasma Lactic Acid Anderson 2.7 H* (0.7-2.0) mmol/L Calcium 8.2 L (8.4-10.2) mg/dL Total Bilirubin 2.2 H (0.2-1.3) mg/dL AST 83 H (17-59) U/L ALT 91 H (21-72) U/L Alkaline Phosphatase 179 H (38-126) U/L Total Protein 6.1 L (6.3-8.2) g/dL Albumin 2.6 L (3.5-5.0) g/dL Urine Protein (Negative) Urine Glucose (UA) (Negative) Urine Ketones (Negative) Urine Blood (Negative) Urine Bilirubin (Negative) Ur Leukocyte Esterase (Negative) Urine WBC (0-5) /hpf Hyaline Casts (0-2) /lpf Urine Mucus (None) /hpf 03/03/19 Range/Units 07:00 WBC (3.8-10.6) k/uL RBC (4.30-5.90) m/uL MCV (80.0-100.0) fL RDW (11.5-15.5) % Neutrophils # (1.3-7.7) k/uL Monocytes # (0-1.0) k/uL Sodium (137-145) mmol/L Potassium (3.5-5.1) mmol/L Creatinine (0.66-1.25) mg/dL Glucose (74-99) mg/dL Plasma Lactic Acid Anderson (0.7-2.0) mmol/L Calcium (8.4-10.2) mg/dL Total Bilirubin (0.2-1.3) mg/dL AST (17-59) U/L ALT (21-72) U/L Alkaline Phosphatase (38-126) U/L Total Protein (6.3-8.2) g/dL Albumin (3.5-5.0) g/dL Urine Protein 1+ H (Negative) Urine Glucose (UA) Trace H (Negative) Urine Ketones 2+ H (Negative) Urine Blood Trace H (Negative) Urine Bilirubin 1+ H (Negative) Ur Leukocyte Esterase Trace H (Negative) Urine WBC 24 H (0-5) /hpf Hyaline Casts 19 H (0-2) /lpf Urine Mucus Many H (None) /hpf Assessment and Plan Assessment: 1-patient presented to the hospital after the patient did have a fall in this p atient may symptom has been feeling weak and tired and wonders if this patient who did have elevated white count of 22,004 doses likely multifactorial due to with a possible component of UTI underlying cholangitis the need an extended in view of elevated liver enzymes and evidence of gallstone a question of possible passage of small stone through the CBD with resultant irritation, however the patient did have poor dental hygiene underlying dental infection entirely excluded Plan: 1-would have advised Unasyn to cover for both oral johnson and abdominal source unfortunately Unasyn is on shortage 2-we will continue with the Rocephin however adjust the dose to 2 g daily and add clindamycin 600 every 8 hours 3-gentle IV fluid we will follow-up on clinical examination and cultures to further adjust medication if needed Thank you for this consultation will follow this patient along with you Time with Patient: Greater than 30
[2019-03-03] MEDS: CLINDAMYCIN 600 MG in DEXTROSE 5% IN WATER 50 ML IVPB SCH ×2 (23:14)
--- NOTE | 2019-03-04 07:56 | P.GSCN ---
History of Present Illness Consult date: 03/04/19 Reason for Consult: Possible sepsis rule out Dental abscess Requesting physician: Vu Garsia History of present illness: This is a 54-year-old male patient who presented to the ER with complaints of a fall with overall increased weakness. Patient was urged by family members to come to the ER. Patient reports he was at the grocery store in the grocery cart was moved patient fell onto his buttocks. Per patient he's had increased weakness with nausea and vomiting over the past few days. Patient reports that his only health history includes rheumatoid arthritis which he follows with endocrinology . Patient does report he has been treated for an ear infection that he states feels much improved. Patient also has poor dental hygiene. Patient denies any fevers at home. Patient denies any chest pain or shortness of breath. Chest x-ray completed showing no evidence of acute cardiopulmonary disease. Stable findings of emphysema. Patient does report wetting himself yesterday while away from his room for test. Past Medical History Past Medical History: Rheumatoid Arthritis (RA) Additional Past Medical History / Comment(s): Severe rheumatoid arthritis History of Any Multi-Drug Resistant Organisms: None Reported Past Surgical History: No Surgical Hx Reported Additional Past Surgical History / Comment(s): Colonoscopy-normal Past Anesthesia/Blood Transfusion Reactions: No Reported Reaction Smoking Status: Current every day smoker - Past Family History Mother Additional Family Medical History / Comment(s): Pt states mother is possibly from cancer. Father Additional Family Medical History / Comment(s): Pt states father is healthy except for alot of hernias/repairs. Medications and Allergies Home Medications Medication Instructions Recorded Confirmed Type Adalimumab [Humira] 40 mg SQ Q14D 05/19/17 03/03/19 History Folic Acid 1 mg PO DAILY 05/19/17 03/03/19 History Ibuprofen [Motrin] 600 mg PO Q6HR PRN #40 day 05/20/17 03/03/19 Rx Amoxicillin/Potassium Clav 500 mg PO BID 03/03/19 03/03/19 History [Augmentin 500-125 Tablet] Potassium Chloride ER [K-Dur 20] 20 meq PO DAILY 03/03/19 03/03/19 History Allergies Allergy/AdvReac Type Severity Reaction Status Date / Time codeine Allergy Nausea & Verified 03/03/19 07:14 Vomiting Surgical - Exam Vital Signs Temp Pulse Resp BP Pulse Ox 97.6 F 131 H 19 130/71 98 03/03/19 04:55 03/03/19 04:55 03/03/19 04:55 03/03/19 04:55 03/03/19 04:55 Intraorally the patient's mouth opening is within normal limits he does have some swelling of the left masseter space palpable extraorally but less than 1 cm. There is some submandibular sublingual swelling adjacent to tooth #17 area. Upon opening spontaneous drainage of about 2 mL of pus was noted yesterday. This was cultured at that time. Again this morning about 2 mL of pus was noted in the lingual trigone area on the left. It appears to be coming around the tooth sulcus of grossly decayed tooth #17. The remaining dentition is in poor repair and is unlikely to be restorable. No other swelling or pus is noted in the mouth. His oropharynx and airway are otherwise intact. He has no trouble swallowing or breathing. Results - Labs 03/03/19 06:00 03/03/19 06:00 Microbiology - Last 24 Hours (Table) 03/03/19 18:40 Wound Culture - Preliminary Mouth 03/03/19 07:00 Urine Culture - Preliminary Urine,Voided Thyroid panel 03/03/19 Range/Units 10:45 TSH 1.730 (0.465-4.680) mIU/L Pituitary panel 03/03/19 Range/Units 10:45 TSH 1.730 (0.465-4.680) mIU/L Assessment and Plan Assessment: Dental abscess associated with tooth #17. Appears to be spontaneously draining with minimal soft tissue swelling. Plan: With the spontaneous drainage and the the minimal nature of the intraoral swelling the patient appears to be improving with current therapy. Patient's currently on iv Rocephin and IV clindamycin per infectious disease. With the patient's cachectic body habitus and chronic emphysema changes would recommend medicine clear patient for anesthesia prior to any surgery. Time with Patient: Greater than 30 (this consult covers visit last night and today)
[2019-03-04 08:18] LABS: Anisocytosis Slight; Basophils # (A) 0.1 k/uL (0-0.2); Basophils % (A) 0 %; Eosinophils # (A) 0.1 k/uL (0-0.7); Eosinophils % (A) 1 %; HCT 33.6 % (39.0-53.0); HGB 10.8 gm/dL (13.0-17.5); Lymphocytes # (A) 2.7 k/uL (1.0-4.8); Lymphocytes % (A) 23 %; MCH 33.4 pg (25.0-35.0); MCHC 32.1 g/dL (31.0-37.0); Macrocytosis Moderate; Mean Platelet Volume 7.7; Monocytes % (A) 8 %; Neutrophils % (A) 66 %; Platelet Count 334 k/uL (150-450); RBC 3.23 m/uL (4.30-5.90)
[2019-03-04 08:26] LABS: ALT 69 U/L (21-72); AST 65 U/L (17-59); African American GFR (CKD) >90 (>60 ml/min/1.73 sqM); Alkaline Phosphatase 109 U/L (38-126); Anion Gap 4 mmol/L; Blood Urea Nitrogen 9 mg/dL (9-20); Calcium 7.3 mg/dL (8.4-10.2); Carbon Dioxide 22 mmol/L (22-30); Chloride 110 mmol/L (98-107); Glucose 73 mg/dL (74-99); Potassium 3.6 mmol/L (3.5-5.1); Sodium 136 mmol/L (137-145); Total Bilirubin 1.5 mg/dL (0.2-1.3); Total Protein 4.9 g/dL (6.3-8.2)
[2019-03-04] MEDS: POTASSIUM CHLORIDE ER 20 MEQ TAB.ER PO SCH (10:42)
[2019-03-04] MEDS: NICOTINE 14MG/24HR PATCH TRANSDERM SCH (10:42)
[2019-03-04] MEDS: HEPARIN SODIUM,PORCINE 5,000 UNIT/ML 1 ML VIAL SQ SCH ×2 (10:42→21:50)
[2019-03-04] MEDS: PANTOPRAZOLE 40 MG TABLET PO SCH (10:42)
[2019-03-04] MEDS: SODIUM CHLORIDE 0.9% 1,000 ML IV SCH ×2 (10:46→16:12)
[2019-03-04] MEDS: FAMOTIDINE 20 MG TAB PO SCH (10:52)
[2019-03-04] MEDS: CLINDAMYCIN 600 MG in DEXTROSE 5% IN WATER 50 ML IVPB SCH ×2 (11:12)
--- NOTE | 2019-03-04 12:30 | CT ---
EXAMINATION TYPE: CT facial bones w con DATE OF EXAM: 03/04/2019 COMPARISON: None HISTORY: Left sided facial/neck swelling CT DLP: 836.20 mGycm CONTRAST: 100 mL of Isovue 300 The facial bones are examined in the axial plane at 2 mm thick sections. Reconstructed images in the coronal plane were obtained. A Panorex reconstructed image was also obtained. Multilevel abnormal dentition is evident. Temporomandibular junctions may have some degenerative yeager ge more so on the left. There is a large abscesses on the left adjacent to the mandible. This is at the angle of the jaw yuly uring 2.8 x 4.7 cm and extending adjacent to the condyle and into the activities aide space to the skull b ase. In the left activities aide space this is adjacent to the pterygoid plate. This would be 3 cm within the activities aide space which appears to be communicating posterior to the proximal condyle and extendin g downwards to the angle of the jaw measuring 6.8 cm in craniocaudal dimension. Small amount of absce ss is adjacent to the left pterygoid. There is a large retention cyst within the right maxillary sinus. Left maxillary sinus is clear. Charu ining paranasal sinuses and mastoid air cells are clear. The ethmoid air cells are clear. The sphen oid sinuses are clear. The frontal sinuses are clear. The septum is evaluated. There is septal deviation to the left. Bilateral yanelis bullosa are present . The ostiomeatal units are patent. IMPRESSIONS: 1. Large left mandibular abscess extending from below the left mandible at the angle of the jaw to t he temporomandibular junction. This includes extension both medial and lateral to the condyle and ext ending into the activities aide space adjacent to the left pterygoid plate. A Red level critical message alert has been initiated for Vu Garsia MD via the [employer] on 03/04/2019 12:27 PM. This message alert has been sent to Vu Garsia MD via the preferences provided by the clinician for the receipt of Radiology Critical Findings. Message ID [id number].
--- NOTE | 2019-03-04 12:36 | CT ---
EXAMINATION TYPE: CT soft tissue neck w con DATE OF EXAM: 03/04/2019 COMPARISON: None HISTORY: Left sided facial/neck swelling. Scanned by KBW CT DLP: 334.8 mGycm CONTRAST: Patient injected with 100 mL of Isovue 300. TECHNIQUE: Axial images at 3 mm thick sections. Reconstructed images in the coronal plane and sagitt al plane are reviewed. FINDINGS: Limited CT sections are obtained the lung apices. Stents of emphysematous blebs and bulla are at the lung apices. CT neck: There is a large abscess extending from nearly the apex of the mandible on the left approximately the level of the submandibular gland posteriorly at both medial and lateral to the mandible extending sheets periorly adjacent to the condyle to the temporomandibular junction. This extends into the coupon redemption clerk space adjacent to the pterygoid plate as well as laterally. This appears to be at or slightly below t he zygomatic arch on the left. Please also see facial bone dictation same date. Torus tubarius and fossa of Rosenmuller appear within normal limits. No osseous erosion is identified . Suspicious adenopathy is not evident. Overall, this abscess appears to measure approximately 4.9 cm AP by 3.0 cm transverse by 8.9 cm in craniocaudal dimension. The hypopharynx appears within normal limits. Prevertebral space is normal. Superior mediastinum is u nremarkable. Vocal cord level appear symmetrical. Glottic airway is unremarkable. Thyroid as visualized is normal. Osseous structures are normal. IMPRESSIONS: 1. Large abscess centered at the left mandible and extending along the condyle to the temporal mandib ular level as well as anteriorly towards the mandibular apex.
--- NOTE | 2019-03-04 14:33 | P.PN ---
Subjective Progress Note Date: 03/04/19 This is a 54-year-old male patient who presented to the ER with complaints of a fall with overall increased weakness. Patient was urged by family members to come to the ER. Patient reports he was at the grocery store in the grocery cart was moved patient fell onto his buttocks. Family is currently at bedside. Per patient and family he's had increased weakness with nausea and vomiting over the past few days. Per patient's family patient has had decreased appetite. Patient reports that his only health history includes rheumatoid arthritis which he follows with endocrinology . Patient does report he has been treated for an ear infection that he states feels much improved. Patient also has poor dental hygiene. Per patient's family patient is very reluctant to go to health care providers. Patient denies any fevers at home. Patient denies any chest pain or shortness of breath. Chest x-ray completed showing no evidence of acute cardiopulmonary disease. Stable findings of emphysema. Partially visualized dilated small bowel loops in the upper abdomen. EKG completed showing sinus tachycardia. Patient did receive 2 L fluid boluses in ER. Patient's white blood cell count elevated at 22.8 lactic acid 2.7. Patient started on Rocephin infectious disease has been consulted. UA positive for urinary tract infection. Urine culture, blood culture and sputum cultures have been ordered. Patient also having elevated liver enzymes. Total bili 2.2 AST 83 AST 91 alkaline phosphatase 179. Abdominal ultrasound will be ordered. Due to patient's nausea amylase and lipase will be ordered. At This time patient is resting comfortably in bed. Family is at bedside all questions answered. On 03/04/2019 patient is alert and oriented 3 resting comfortably in bed. Patient was evaluated by oral surgeon Dr. Mccullough. White blood cell has improved to 12.2. Infectious disease is following. Patient remains on clindamycin and Rocephin. At this time patient denies any chest pain or shortness of breath. Patient denies nausea vomiting or diarrhea. Patient denies any urinary burning or frequency. Objective - Vital Signs Vital signs: Vital Signs Temp 97.5 F L 03/04/19 12:26 Pulse 89 03/04/19 12:26 Resp 17 03/04/19 12:26 BP 116/78 03/04/19 12:26 Pulse Ox 100 03/04/19 12:26 Intake & Output 03/03/19 03/04/19 03/04/19 18:59 06:59 18:59 Intake Total 3490 1100 Balance 3490 1100 Weight 50.802 kg Intake: Intake, IV Titration 1750 1100 Amount Clindamycin 600 mg In 50 Dextrose 5% in Water 50 ml @ 50 mls/hr IVPB Q8HR [facility] Rx#:[id number] Sodium Chloride 0.9% 1, 200 1000 000 ml @ 100 mls/hr IV . Q10H [facility] Rx#:[id number] Sodium Chloride 0.9% 500 500 ml 500 ml @ 999 mls/hr IV .Q31M [facility] Rx#:[id number] cefTRIAXone 1 gm In 1000 Sodium Chloride 0.9% 50 ml @ 100 mls/hr IVPB ONCE [facility] Rx#:[id number] cefTRIAXone 1 gm In 50 50 Sodium Chloride 0.9% 50 ml @ 100 mls/hr IVPB Q12HR [facility] Rx#:[id number] Oral 1740 Other: Voiding Method Toilet Toilet # Voids 3 1 # Bowel Movements 3 - Exam Head normocephalic Neck supple Lungs clear to auscultation bilaterally no wheezing or crackles Heart regular rate and rhythm S1-S2, no rub or gallop Abdomen is soft nontender nondistended positive bowel sounds no hepatosplenomegaly Extremities no edema Neuro alert and orientated to 3 Gen. Patient does appear emaciated, poor dental hygiene, currently on drainage noted to back lower mouth. - Labs CBC & Chem 7: 03/04/19 07:49 03/04/19 07:49 Labs: Abnormal Lab Results - Last 24 Hours (Table) 03/04/19 03/04/19 Range/Units 07:49 07:49 WBC 12.0 H (3.8-10.6) k/uL RBC 3.23 L (4.30-5.90) m/uL Hgb 10.8 L (13.0-17.5) gm/dL Hct 33.6 L (39.0-53.0) % MCV 104.0 H (80.0-100.0) fL RDW 17.0 H (11.5-15.5) % Neutrophils # 8.0 H (1.3-7.7) k/uL Sodium 136 L (137-145) mmol/L Chloride 110 H (98-107) mmol/L Creatinine 0.41 L (0.66-1.25) mg/dL Glucose 73 L (74-99) mg/dL Calcium 7.3 L (8.4-10.2) mg/dL Total Bilirubin 1.5 H (0.2-1.3) mg/dL AST 65 H (17-59) U/L Total Protein 4.9 L (6.3-8.2) g/dL Albumin 2.0 L (3.5-5.0) g/dL Microbiology - Last 24 Hours (Table) 03/03/19 10:45 Blood Culture - Preliminary Blood No Growth after 24 hours 03/03/19 07:00 Urine Culture - Final Urine,Voided 03/03/19 18:40 Gram Stain - Preliminary Mouth Wound Culture - Preliminary Assessment and Plan Assessment: 1. Sepsis present due to urinary tract infection and tooth abscess. Lactic acid elevated at 2.7. White blood cell is improving to 12.2. 2. Tooth abscess. Dr. Mccullough currently following. on Rocephin and clindamycin. Soft tissue neck CT and facial CT has been ordered per Dr. Mccullough 3. Urinary tract infection. Patient currently on Rocephin. urine culture pending 2. Decreased appetite with nausea and diarrhea. Dietitian consulted. Amylase and lipase within normal limits 3. Elevated liver enzymes. Abdominal ultrasound completed showing appendicolith or sludge and cholelithiasis no evidence of acute cholecystitis . Liver enzymes are trending down 4. Tachycardia. EKG upon arrival showing sinus tachycardia with a heart rate o f 129. received 2 L fluid bolus Patient's heart rate has improved to low 100s. Continue fluid likely due to dehydration and sepsis. Heart rate has improved beta alia has been added 5. Poor dental hygiene. Per patient and family patient has not followed with dentist due to personal fears. 6. Nicotine dependence. Patient educated on smoking sensation greater than 3 minutes on smoking sensation nicotine patch will be ordered. 7. History of severe rheumatoid arthritis. Patient follows with endocrinology. Patient maintained on Humira 8. History of EtOH. Denies any alcohol use for 2 years 9. Left renal lesion. Seen incidentally on abdominal ultrasound left renal lesion does not demonstrate definitive characteristics of a cyst and could be further evaluated with a [address] DVT prophylaxis heparin. GI prophylaxis Protonix Patient evaluated by pulmonary services cleared for surgery per pulmonary I performed an examination of the patient and discussed their management with the Nurse Practitioner. I have reviewed the Nurse Practitioner's notes and agree with the documented findings and plan of care
[2019-03-04] MEDS: CLINDAMYCIN 150 MG CAP PO SCH (16:11)
--- NOTE | 2019-03-04 19:22 | PN ---
PROGRESS NOTE DATE OF SERVICE: 03/04/2019. REASON FOR FOLLOWUP: Right submandibular abscess, possible UTI. INTERVAL HISTORY: The patient is currently afebrile, has been breathing comfortably, slight discomfort in the right lower jaw area, but no worsening. No difficulty swallowing. No nausea, vomiting. No abdominal pain or any diarrhea. PHYSICAL EXAMINATION: Blood pressure 115/72 with a pulse of 89. Temperature is 97.5. He is 100% on room air. General description is a middle-aged male lying in bed in no distress. HEENT examination: Poor oral dentition. NECK: Trachea central. No thyromegaly. LUNGS unlabored breathing, clear to auscultation anteriorly. HEART S1, S2. Regular rate and rhythm. ABDOMEN: Soft, no tenderness. LABS: Hemoglobin is 10.1, white count 12 with a BUN of 9. Creatinine 0.41. The oral culture done by Oral surgery yesterday, currently pending. CT has been suspicious for a right submandibular abscess. DIAGNOSTIC IMPRESSION AND PLAN: Patient with leukocytosis, source likely right submandibular abscess. Oral surgeries on the case for possible drainage of this abscess and deep cultures. The patient is currently covered on Rocephin 2 g and clindamycin to continue while monitoring clinical course closely. Continue supportive care. MMODL / IJN: [id number] /
--- NOTE | 2019-03-04 20:42 | CONS ---
CONSULTATION This patient is a 54-year-old male who apparently was at [facility]. He was shopping with his father. He apparently felt very weak and lightheaded there. He actually fell there when somebody moved a grocery cart that he was leaning on. He fell to the ground. He could not get up. Apparently his father then drove him home and then later that day or early the next morning, he decided to come in to be evaluated. He states he never quite felt the way he felt on that day. He just felt profoundly weak and like he just did not have any energy. He apparently did not lose consciousness when he fell. He apparently did not strike his head. The patient denies any fever or chills. There is no chest pain. There is no cough or wheezing. The patient was apparently admitted for possible sepsis. He apparently was found to have some sort of abscess in his oral cavity. The patient may need surgery. They asked us to see him for preoperative clearance. The patient is a heavy smoker. He has been smoking for a number of years or so; probably 28. He smokes about a pack a day. He denies any profound shortness of breath, difficulty breathing, coughing, wheezing or phlegm production. He has never been told that he has COPD. HOME MEDICATIONS: His home medications include: 1. Humira. 2. Folic acid. 3. Augmentin. 4. Potassium chloride. 5. He is also on ibuprofen. ALLERGIES: CODEINE. PAST MEDICAL HISTORY: His past medical history includes: 1. Rheumatoid arthritis. 2. He may have some underlying COPD from heavy tobacco use. He has never been seen by a lung doctor in the past. 3. His only other medical problem is that of arthritis. SURGICAL HISTORY: Unremarkable. SOCIAL HISTORY: Social history is positive for ongoing tobacco use. He smokes every day. He does drink on a daily basis. He denies any illicit drug use. OCCUPATIONAL HISTORY: Noncontributory. FAMILY HISTORY: Noncontributory. PHYSICAL EXAMINATION: VITAL SIGNS: Current vital signs are reviewed. Temperature is 97.8, heart rate 94, respiratory rate 18, blood pressure 112/68, mean 82, room-air saturation 92%. GENERAL: Appears in no acute distress. HEENT: HEENT examination is grossly unremarkable. Mucous membranes are moist. No oral lesions. Teeth are in very poor repair. NECK: Supple. Full range of motion. No adenopathy or thyromegaly. Neck veins are flat. CARDIOVASCULAR: Cardiovascular examination reveals regular rhythm and rate. Heart rate about 95 beats per minute. S1, S2 normal. LUNGS: Lungs reveal mostly clear but diminished breath sounds. No wheezes, rhonchi or crackles. ABDOMEN: Soft. EXTREMITIES: Intact. No cyanosis, clubbing or edema. Fingernails are stained with nicotine. SKIN: Without rash. NEUROLOGIC: Neurologic examination is brief but nonfocal. IMAGING: Chest x-ray is reviewed. It shows no evidence of acute cardiopulmonary disease. There may be some emphysema. Abdominal ultrasound was performed. It shows dependent gallbladder sludge and cholelithiasis. No evidence of acute cholecystitis. There is hepatic steatosis. A brain CT is done. It shows evidence of cerebral atrophy. There is no acute abnormality. Soft tissue of the neck and soft tissue of the face have been ordered but not officially read as yet. Microbiology is negative. MEDICATIONS: Medications are reviewed. The patient is on Rocephin and clindamycin. ASSESSMENT: 1. Dental abscess, associated with tooth #17. Seen by the oral surgeon; possible surgical intervention. 2. History of ongoing and chronic tobacco dependence with possible underlying chronic obstructive pulmonary disease. 3. Dental caries. 4. History of rheumatoid arthritis, currently on a biologic agent, i.e., Humira. 5. History of arthritis. PLAN: We will continue to follow. The patient is stable for surgery if in fact the patient is going to have surgery. The patient likely does have COPD. He is not on any supplemental oxygen. He has not complained of overwhelming shortness of breath. He has never been seen by a lung doctor. Additional recommendations and suggestions are forthcoming. MMODL / IJN: [id number] /
[2019-03-04] MEDS: METOPROLOL TARTRATE 12.5 MG TAB PO SCH (21:50)
[2019-03-05] MEDS: CLINDAMYCIN 150 MG CAP PO SCH ×4 (00:39→23:13)
[2019-03-05] MEDS: SODIUM CHLORIDE 0.9% 1,000 ML IV SCH ×3 (04:00→20:36)
--- NOTE | 2019-03-05 08:17 | PN ---
PROGRESS NOTE DATE OF SERVICE: March 05, 2019 HISTORY: This is a 54-year-old male who has a large oral cavity abscess. The patient had a soft tissue CT of the neck and face yesterday. It showed a large abscess centered at the left mandible and extending along the condyle to the temporal mandibular level as well as anteriorly toward the mandibular apex. The patient was placed on IV antibiotics. Surgery has been consulted. When I saw the patient today, no plans were made as to whether not the patient would have surgery immediately. The patient was not n.p.o., so I suspect he is not having surgery right away. Anyway, the patient does feel a bit better according to him. He came into the hospital because he became very weak at the grocery store and ended up falling and hitting his head. Later that same day, he came into the emergency room where he was evaluated. PAST MEDICAL HISTORY: Includes rheumatoid arthritis and probable COPD as well as arthritis. He is on Humira for his rheumatoid arthritis. PHYSICAL EXAMINATION: VITAL SIGNS: Current vital signs are reviewed. Temperature is 97.8, heart rate 85, respiratory rate 16, blood pressure 110/74 mean 86, room air saturation 96%. GENERAL: Appears in no acute distress. HEENT examination is grossly unremarkable. Mucous membranes are moist. The teeth are in poor repair. NECK: Supple. Full range of motion. There is some tenderness over the left jaw area. There is also some swelling over the left jaw and submandibular area. No adenopathy. No thyromegaly. Neck veins are flat. CARDIOVASCULAR examination reveals regular rhythm and rate. Heart rate in mid 80s. S1, S2 normal. LUNGS reveal mostly clear breath sounds. No wheezes or rhonchi. A few scattered mild crackles. ABDOMEN: Soft. Bowel sounds are heard. EXTREMITIES are intact. No cyanosis, clubbing, or edema. SKIN without rash. NEUROLOGIC examination is brief but nonfocal. So far all those culture data is negative. LABORATORY DATA: Reviewed. Nothing back from today as yet. All the lab work was from yesterday. Chest x-ray and other x-rays have all been reviewed. ASSESSMENT: 1. Large abscess along the left mandible, currently on antibiotic therapy with possible surgical intervention in the future. 2. Probable chronic obstructive pulmonary disease from chronic tobacco use. 3. Dental caries. 4. History of rheumatoid arthritis, currently on Humira. 5. History of arthritis. PLAN: Because the patient is on a biologic, i.e. Humira, he is at high risk for infection. He appears to have poor dental care and has developed a large abscess along the left jaw line. Oral surgery is involved, infectious diseases are involved. I was asked to see the patient for preop clearance. The patient denies any respiratory issues. Likely has some underlying COPD. From my perspective, he is cleared for surgery. No additional recommendations are made. Will see as needed. MMODL / IJN: [id number] / MTDD
[2019-03-05] MEDS: NICOTINE 14MG/24HR PATCH TRANSDERM SCH (08:32)
[2019-03-05 08:33] LABS: ALT 66 U/L (21-72); AST 58 U/L (17-59); African American GFR (CKD) >90 (>60 ml/min/1.73 sqM); Alkaline Phosphatase 92 U/L (38-126); Anion Gap 4 mmol/L; Blood Urea Nitrogen 5 mg/dL (9-20); Calcium 7.4 mg/dL (8.4-10.2); Carbon Dioxide 22 mmol/L (22-30); Chloride 109 mmol/L (98-107); Glucose 74 mg/dL (74-99); Potassium 3.8 mmol/L (3.5-5.1); Sodium 135 mmol/L (137-145); Total Bilirubin 1.4 mg/dL (0.2-1.3); Total Protein 4.8 g/dL (6.3-8.2)
[2019-03-05] MEDS: HEPARIN SODIUM,PORCINE 5,000 UNIT/ML 1 ML VIAL SQ SCH (08:33)
[2019-03-05] MEDS: POTASSIUM CHLORIDE ER 20 MEQ TAB.ER PO SCH (08:33)
[2019-03-05] MEDS: PANTOPRAZOLE 40 MG TABLET PO SCH (08:33)
[2019-03-05] MEDS: METOPROLOL TARTRATE 12.5 MG TAB PO SCH ×2 (08:33→20:36)
[2019-03-05 08:36] LABS: Anisocytosis Slight; Basophils # (A) 0.1 k/uL (0-0.2); Basophils % (A) 1 %; Eosinophils # (A) 0.1 k/uL (0-0.7); Eosinophils % (A) 1 %; HCT 33.4 % (39.0-53.0); HGB 10.5 gm/dL (13.0-17.5); Lymphocytes # (A) 2.3 k/uL (1.0-4.8); Lymphocytes % (A) 27 %; MCH 33.1 pg (25.0-35.0); MCHC 31.4 g/dL (31.0-37.0); MCV 105.3 fL (80.0-100.0); Macrocytosis Moderate; Mean Platelet Volume 7.8; Monocytes # (A) 0.8 k/uL (0-1.0); Monocytes % (A) 9 %; Neutrophils # (A) 5.2 k/uL (1.3-7.7); Neutrophils % (A) 61 %; Platelet Count 377 k/uL (150-450); RBC 3.17 m/uL (4.30-5.90); WBC 8.7 k/uL (3.8-10.6)
--- NOTE | 2019-03-05 11:28 | CDI ---
Documentation Clarification Form Date: 03/05/2019 11:03:05 AM From: Christina Ashley RN, CCDS Admit Date: 03/04/2019 2:23:00 PM Patient Name: Larry Gayle Visit Number: [id number] Discharge Date: ATTENTION: The Clinical Documentation Specialists (CDI) and [facility] Coding Staff appreciate your assistance in clarifying documentation. Please respond to the clarification below the line at the bottom and electronically sign. The CDI & [facility] Coding staff will review the response and follow-up if needed. Please note: Queries are made part of the Legal Health Record. If you have any questions, please contact the author of this message via ITS. Dr. Vu Garsia Malnutrition has been documented in the nutritional assessment and further clarification is needed. History/Risk Factors: Rheumatoid arthritis, Current every day smoker Clinical Indicators: 54-year-old male who present with generalized weakness and fatigue. He has had nausea and vomiting over the past few days. His general appearance is noted as cachetic emaciated, poor dental hygiene. CT of neck and face: Positive for a right submandibular abscess Labs: Albumin 2.6, 2.0, 2.0; Total Protein 6.1, 4.9, 4.8 Current BMI: 15.6 Insufficient energy intake: yes Weight Loss: 17 % weight loss of UBW in 3 months Loss of subcutaneous fat: moderate-to severe fat loss Loss of muscle mass: moderate-to severe severe temporal wasting, interosseous depletion, moderate to severe depletion in biceps, buccal region, clavical and scapula region Treatment: Monitor PO intake Dietary Consult: Yes, diagnosis, Malnutrition, severe, chronic Supplements: Commercial beverage, Enlive TID Lab monitoring: Total protein, Albumin, CBC, Lytes In your professional opinion, can you please clarify if these findings signify one of the following conditions? Mild Protein-Calorie Malnutrition Moderate Protein-Calorie Malnutrition Severe Protein-Calorie Malnutrition Malnutrition, unspecified Malnutrition following GI surgery Other condition, please specify Unable to determine (Last Revision: December 2017) Severe protein calorie malnutrition MTDD
--- NOTE | 2019-03-05 11:41 | P.PN ---
Subjective Progress Note Date: 03/05/19 This is a 54-year-old male patient who presented to the ER with complaints of a fall with overall increased weakness. Patient was urged by family members to come to the ER. Patient reports he was at the grocery store in the grocery cart was moved patient fell onto his buttocks. Family is currently at bedside. Per patient and family he's had increased weakness with nausea and vomiting over the past few days. Per patient's family patient has had decreased appetite. Patient reports that his only health history includes rheumatoid arthritis which he follows with endocrinology . Patient does report he has been treated for an ear infection that he states feels much improved. Patient also has poor dental hygiene. Per patient's family patient is very reluctant to go to health care providers. Patient denies any fevers at home. Patient denies any chest pain or shortness of breath. Chest x-ray completed showing no evidence of acute cardiopulmonary disease. Stable findings of emphysema. Partially visualized dilated small bowel loops in the upper abdomen. EKG completed showing sinus tachycardia. Patient did receive 2 L fluid boluses in ER. Patient's white blood cell count elevated at 22.8 lactic acid 2.7. Patient started on Rocephin infectious disease has been consulted. UA positive for urinary tract infection. Urine culture, blood culture and sputum cultures have been ordered. Patient also having elevated liver enzymes. Total bili 2.2 AST 83 AST 91 alkaline phosphatase 179. Abdominal ultrasound will be ordered. Due to patient's nausea amylase and lipase will be ordered. At This time patient is resting comfortably in bed. Family is at bedside all questions answered. On 03/04/2019 patient is alert and oriented 3 resting comfortably in bed. Patient was evaluated by oral surgeon Dr. Mccullough. White blood cell has improved to 12.2. Infectious disease is following. Patient remains on clindamycin and Rocephin. At this time patient denies any chest pain or shortness of breath. Patient denies nausea vomiting or diarrhea. Patient denies any urinary burning or frequency. On 03/05/2019 patient is alert and oriented 3. White Blood cell has improved to 8.7. At this time patient reports feeling improved. Appetite has increased. Patient remains on IV antibiotics. At this time patient denies chest pain or shortness of breath. Patient denies nausea vomiting or diarrhea. Patient denies any urinary burning or frequency Objective - Vital Signs Vital signs: Vital Signs Temp 97.8 F 03/05/19 05:00 Pulse 85 03/05/19 05:00 Resp 16 03/05/19 05:00 BP 110/74 03/05/19 05:00 Pulse Ox 96 03/05/19 05:00 Intake & Output 03/04/19 03/05/19 03/05/19 18:59 06:59 18:59 Intake Total 1540 1100 Balance 1540 1100 Weight 50.802 kg Intake: Intake, IV Titration 100 1100 Amount Clindamycin 600 mg In 50 Dextrose 5% in Water 50 ml @ 50 mls/hr IVPB Q8HR [facility] Rx#:[id number] Sodium Chloride 0.9% 1, 1100 000 ml @ 100 mls/hr IV . Q10H [facility] Rx#:[id number] cefTRIAXone 2 gm In 50 Sodium Chloride 0.9% 50 ml @ 100 mls/hr IVPB Q24HR [facility] Rx#:[id number] Oral 1440 Other: Voiding Method Toilet Toilet Toilet # Voids 3 2 - Exam Head normocephalic Neck supple Lungs clear to auscultation bilaterally no wheezing or crackles Heart regular rate and rhythm S1-S2, no rub or gallop Abdomen is soft nontender nondistended positive bowel sounds no hepatosplenomegaly Extremities no edema Neuro alert and orientated to 3 Gen. Patient does appear emaciated, poor dental hygiene, drainage noted to back lower mouth. - Labs CBC & Chem 7: 03/05/19 07:01 03/05/19 07:01 Labs: Abnormal Lab Results - Last 24 Hours (Table) 03/05/19 03/05/19 Range/Units 07:01 07:01 RBC 3.17 L (4.30-5.90) m/uL Hgb 10.5 L (13.0-17.5) gm/dL Hct 33.4 L (39.0-53.0) % MCV 105.3 H (80.0-100.0) fL RDW 17.0 H (11.5-15.5) % Sodium 135 L (137-145) mmol/L Chloride 109 H (98-107) mmol/L BUN 5 L (9-20) mg/dL Creatinine 0.43 L (0.66-1.25) mg/dL Calcium 7.4 L (8.4-10.2) mg/dL Total Bilirubin 1.4 H (0.2-1.3) mg/dL Total Protein 4.8 L (6.3-8.2) g/dL Albumin 2.0 L (3.5-5.0) g/dL Microbiology - Last 24 Hours (Table) 03/04/19 16:05 Gram Stain - Preliminary Sputum Sputum Culture - Preliminary 03/03/19 10:45 Blood Culture - Preliminary Blood No Growth after 24 hours 03/03/19 07:00 Urine Culture - Final Urine,Voided 03/03/19 18:40 Gram Stain - Preliminary Mouth Wound Culture - Preliminary Assessment and Plan Assessment: 1. Sepsis present on admit due to urinary tract infection and tooth abscess. Lactic acid elevated at 2.7. White blood cell has normalized 2. Tooth abscess. Dr. Mccullough currently following. on Rocephin and clindamycin. CT of the soft tissue of the neck completed showing large abscess centered in the left mandible and extending along the condyle to the mandibular level as well as anteriorly towards the mandibular apex. Patient remains on IV antibiotics. Possible surgical drainage of abscess per Dr. Mccullough awaiting final recommendations 3. Urinary tract infection. Patient currently on Rocephin. urine culture pending 2. Decreased appetite with nausea and diarrhea. Dietitian consulted. Amylase and lipase within normal limits 3. Elevated liver enzymes. Abdominal ultrasound completed showing appendicolith or sludge and cholelithiasis no evidence of acute cholecystitis . Liver enzymes are trending down 4. Tachycardia. Resolved. EKG upon arrival showing sinus tachycardia with a heart rate of 129. received 2 L fluid bolus Patient's heart rate has improved to low 100s. Continue fluid likely due to dehydration and sepsis. Heart rate has improved beta alia has been added 5. Poor dental hygiene. Per patient and family patient has not followed with marilu correa due to personal fears. 6. Nicotine dependence. Patient educated on smoking sensation greater than 3 minutes on smoking sensation nicotine patch will be ordered. 7. History of severe rheumatoid arthritis. Patient follows with endocrinology. Patient maintained on Humira 8. History of EtOH. Denies any alcohol use for 2 years 9. Left renal lesion. Seen incidentally on abdominal ultrasound left renal lesion does not demonstrate definitive characteristics of a cyst and could be further evaluated with a [address] DVT prophylaxis SCDs for possible surgical intervention. GI prophylaxis Protonix Patient evaluated by pulmonary services cleared for surgery per pulmonary Social work services consulted for d/c planning. Patient may require IV antibiotics upon discharge I performed an examination of the patient and discussed their management with the Nurse Practitioner. I have reviewed the Nurse Practitioner's notes and agree with the documented findings and plan of care
[2019-03-05] MEDS ORDERED: IV FLUID CONTINUATION 1,000 ML IV ONE (16:11)
[2019-03-05] MEDS ORDERED: LIDOCAINE 1% INJ 10MG/ML (20 ML MDV) ONE (16:44)
[2019-03-05] MEDS ORDERED: fentaNYL (PF) 50 MCG/ML 2 ML AMP ONE (16:44)
[2019-03-05] MEDS ORDERED: PROPOFOL 10 MG/ML 20 ML VIAL IV ONE (16:44)
[2019-03-05] MEDS ORDERED: SUCCINYLCHOLINE CHLORIDE 100 MG/5 ML SYR IV ONE (16:44)
[2019-03-05] MEDS ORDERED: BUPIVACAIN-EPI 0.25%-1:200,000 30 ML VIAL SQ ONE ×2 (17:03)
[2019-03-05] MEDS ORDERED: LIDOCAINE 1%-EPI 1:100,000 20 ML VIAL SQ ONE ×2 (17:04)
--- NOTE | 2019-03-05 18:14 | P.OP ---
Date of Procedure: 03/05/19 Preoperative Diagnosis: Bacterial sepsis. Left sybmandibular abcess gross decay of all reaming teeth Postoperative Diagnosis: same Procedure(s) Performed: Incision and drainage of left jaw abscess intraorally Surgical extraction of teeth numbers 2, 3, 4, 5, 6, 12, 15, 17, 18, 19, 20, 21, 8, 9, 10, 28, 29, 30, 31, Simple extraction of teeth numbers 22, 23, 24, 25, 26, 27, Implants: None Anesthesia: BRENA Surgeon: Doyle Mccullough Estimated Blood Loss (ml): 7 Pathology: other (Aerobic anaerobic wound cultures from the left mandible approximately 10 mL of yellow pus) Condition: stable Disposition: no change Indications for Procedure: Patient admitted through the emergency room after a fall at the grocery store and feeling weak and nauseous for the past few days came in with elevated white count and suspected sepsis. No source of the infection was found. upon intraoral exam noted spontaneous drainage of pus from the posterior left mandible. Computed tomography scan revealed a 4 cm x 2 cm abscess adjacent to the left mandible associated with posterior teeth. Patient had severe decay of his remaining dentition with significant pain. The decision made to take the operating room and perform incision and drainage to continue to drain the ab scess as well as extract remaining teeth consent reviewed with the patient including but not limited to bleeding pain infection swelling postoperative bone chips need for additional procedure Operative Findings: Approximately 10 mL of pus drained from the medial and lateral aspects of the mandible. Description of Procedure: Patient seen in the preoperative holding area consent reviewed again with the patient description of the procedure just reviewed patient taken to the operating room. After induction of anesthesia I performed the intubation of the patient in an effort to ensure that no abscess perforation was done as well as examine the throat for any spontaneous drainage areas as well as possible pathology related to the abscess. No ulcers or firm tissue were noted a small amount of tonsillar tissue was noted bilaterally and appeared consistent with Post tonsillectomy. This confirmed the suspected diagnosis of dental related ab scess. Bite block throat pack placed 15 mL of a mixture of 50% lidocaine 1% with epinephrine and 0.25 Marcaine with epinephrine was administered and infiltrative manner near Every tooth. Incision and drainage was performed first with sulcular incision around tooth #17 and 18 full-thickness mucoperiosteal flaps buccal and lateral aspects of the mandible upon posterior subperiosteal dissection of approximately 10 mL were expressed from the medial and lateral aspects of the mandible this was expressed using mechanical and hydrostatic lavage. Aerobic anaerobic cultures were sent and 2 [place] drains were placed 1 on the medial and lateral and secured with 3-0 black silk suture. The posterior teeth in the mandible including 17, 18, 19, 20, 21, were elevated small buccal flap to remove some bone and teeth were luxated and delivered without difficulty. We're able to perform simple extraction of tooth numbers 22, 23, 24, 25, 26, 27,. On the upper jaw teeth numbers 15 12, 13 both premolars were by routed had small buccal flap with bone and sectioning and teeth were removed. 3-0 chromic gut suture was then used to secure any loose tissue and the throat pack bite block moved over to the opposite side. Attention was then addressed with tooth numbers 28, 29, 30, and 31, buccal flaps with small amount of bone and the teeth were luxated and delivered without difficulty. The teeth on the top were addressed with no clinical crowns left on any maxillary teeth. As a result tooth numbers 2, 3, 4, 5, 6, 8, 9, 10, 11, were surgically extracted and sutures used to secure tissue at this point the patient was cleaned intraorally and the posterior throat pack was removed and no G-tube was placed in the so posterior oropharynx was suctioned seem to be free of debris. Gauze hemostasis was achieved the patient was awaken extubated and taken to the recovery room in stable condition. He waits transfer back to the floor is to resume his previous orders.
[2019-03-05] MEDS ORDERED: HYDROcodone/APAP 5-325MG 1 EACH TAB PO PRN (18:15)
[2019-03-05] MEDS ORDERED: KETOROLAC 30 MG/ML 1 ML VIAL IVP ONE (18:19)
[2019-03-05 18:21] VITALS: RESP 16
--- NOTE | 2019-03-06 00:01 | P.PN ---
Subjective Progress Note Date: 03/05/19 Principal diagnosis: Left submandibular Abscess with decaying teeth Patient is a 54-year-old male admitted to hospital after pending the patient did have a syncopal episode and fall with generalized weakness the patient was noticed to have elevated white count and further workup did shows evidence of left submandibular abscess with multiple decaying teeth, the patient has been taken to the OR today and is status post drainage of the submandibular abscess and extraction of his teeth On today's evaluation that is 03/05/2019 the patient denies any fever or chills currently denies having any pain on the left chest no difficulty swallowing no chest pain shortness of breath or cough no abdominal pain and no diarrhea Objective - Vital Signs Vital signs: Vital Signs Temp 97.1 F L 03/05/19 21:00 Pulse 80 03/05/19 21:00 Resp 16 03/05/19 21:00 BP 118/71 03/05/19 21:00 Pulse Ox 99 03/05/19 21:00 Intake & Output 03/05/19 03/05/19 03/06/19 06:59 18:59 06:59 Intake Total 1100 550 Output Total 7 Balance 1100 543 Weight 50.802 kg Intake: IV 550 Intake, IV Titration 1100 Amount Sodium Chloride 0.9% 1, 1100 000 ml @ 100 mls/hr IV . Q10H [facility] Rx#:[id number] Output: Estimated Blood Loss 7 Other: Voiding Method Toilet Toilet # Voids 2 3 # Bowel Movements 1 - Exam GENERAL DESCRIPTION:[ Patient is awake and alert in no distress] HEENT: [Oral mucosa is dry and no pharyngeal erythema] EYES : [No pallor or scleral icterus] RESPIRATORY SYSTEM: [Unlabored breathing clear to auscultation] CARDIA VASCULAR SYSTEM: [S1-S2 regular rate and rhythm no murmur] GI: [Abdominal soft there's no tenderness no organomegaly] EXTREMITIES: [No edema feet] - Labs CBC & Chem 7: 03/05/19 07:01 03/05/19 07:01 Labs: Abnormal Lab Results - Last 24 Hours (Table) 03/05/19 03/05/19 Range/Units 07:01 07:01 RBC 3.17 L (4.30-5.90) m/uL Hgb 10.5 L (13.0-17.5) gm/dL Hct 33.4 L (39.0-53.0) % MCV 105.3 H (80.0-100.0) fL RDW 17.0 H (11.5-15.5) % Sodium 135 L (137-145) mmol/L Chloride 109 H (98-107) mmol/L BUN 5 L (9-20) mg/dL Creatinine 0.43 L (0.66-1.25) mg/dL Calcium 7.4 L (8.4-10.2) mg/dL Total Bilirubin 1.4 H (0.2-1.3) mg/dL Total Protein 4.8 L (6.3-8.2) g/dL Albumin 2.0 L (3.5-5.0) g/dL Microbiology - Last 24 Hours (Table) 03/05/19 17:45 Wound Culture - Preliminary Mouth 03/05/19 17:45 Anaerobic Culture - Preliminary Mouth 03/03/19 18:40 Gram Stain - Final Mouth Wound Culture - Final 03/03/19 10:45 Blood Culture - Preliminary Blood No Growth after 48 hours 03/04/19 16:05 Gram Stain - Preliminary Sputum Sputum Culture - Preliminary Assessment and Plan Assessment: Patient with leukocytosis source is likely left seminal abscesses and multiple decaying teeth status post drainage of the submandibular abscess and extraction of decaying teeth, the likely organism that need to cover oral johnson including gram-positive anaerobes and anaerobes Plan: 1-patient will continue with Rocephin 2 g daily and clindamycin 600 mg every 8 hours 2-we will follow-up on clinical condition and culture to further adjust medication if needed Time with Patient: Less than 30
[2019-03-06 08:25] LABS: ALT 57 U/L (21-72); AST 53 U/L (17-59); African American GFR (CKD) >90 (>60 ml/min/1.73 sqM); Albumin 1.8 g/dL (3.5-5.0); Alkaline Phosphatase 88 U/L (38-126); Anion Gap 6 mmol/L; Blood Urea Nitrogen 3 mg/dL (9-20); Calcium 7.2 mg/dL (8.4-10.2); Carbon Dioxide 17 mmol/L (22-30); Chloride 109 mmol/L (98-107); Glucose 70 mg/dL (74-99); Potassium 3.2 mmol/L (3.5-5.1); Sodium 132 mmol/L (137-145); Total Bilirubin 1.2 mg/dL (0.2-1.3); Total Protein 4.5 g/dL (6.3-8.2)
[2019-03-06 08:39] LABS: Basophils # (A) 0.1 k/uL (0-0.2); Basophils % (A) 1 %; Eosinophils # (A) 0.1 k/uL (0-0.7); Eosinophils % (A) 1 %; HCT 34.5 % (39.0-53.0); HGB 10.7 gm/dL (13.0-17.5); Hypochromasia Marked; Lymphocytes # (A) 1.9 k/uL (1.0-4.8); Lymphocytes % (A) 20 %; MCH 33.9 pg (25.0-35.0); MCHC 30.9 g/dL (31.0-37.0); MCV 109.5 fL (80.0-100.0); Macrocytosis Marked; Mean Platelet Volume 7.3; Monocytes # (A) 0.9 k/uL (0-1.0); Monocytes % (A) 10 %; Neutrophils # (A) 6.2 k/uL (1.3-7.7); Neutrophils % (A) 66 %; Platelet Count 370 k/uL (150-450); RBC 3.15 m/uL (4.30-5.90); RDW 15.7 % (11.5-15.5); WBC 9.3 k/uL (3.8-10.6)
[2019-03-06] MEDS: PANTOPRAZOLE 40 MG TABLET PO SCH (09:13)
[2019-03-06] MEDS: METOPROLOL TARTRATE 12.5 MG TAB PO SCH ×2 (09:13→20:24)
[2019-03-06] MEDS: CLINDAMYCIN 150 MG CAP PO SCH ×3 (09:13→23:01)
[2019-03-06] MEDS: POTASSIUM CHLORIDE ER 20 MEQ TAB.ER PO SCH (09:14)
[2019-03-06] MEDS: NICOTINE 14MG/24HR PATCH TRANSDERM SCH (09:14)
[2019-03-06] MEDS: SODIUM CHLORIDE 0.9% 1,000 ML IV SCH ×2 (09:20→23:02)
[2019-03-06] MEDS: POTASSIUM CHLORIDE 10 MEQ in WATER FOR INJECTION 1 100ML.BAG IVPB SCH ×6 (10:14→20:18)
--- NOTE | 2019-03-06 15:26 | P.PN ---
Subjective Progress Note Date: 03/06/19 This is a 54-year-old male patient who presented to the ER with complaints of a fall with overall increased weakness. Patient was urged by family members to come to the ER. Patient reports he was at the grocery store in the grocery cart was moved patient fell onto his buttocks. Family is currently at bedside. Per patient and family he's had increased weakness with nausea and vomiting over the past few days. Per patient's family patient has had decreased appetite. Patient reports that his only health history includes rheumatoid arthritis which he follows with endocrinology . Patient does report he has been treated for an ear infection that he states feels much improved. Patient also has poor dental hygiene. Per patient's family patient is very reluctant to go to health care providers. Patient denies any fevers at home. Patient denies any chest pain or shortness of breath. Chest x-ray completed showing no evidence of acute cardiopulmonary disease. Stable findings of emphysema. Partially visualized dilated small bowel loops in the upper abdomen. EKG completed showing sinus tac hycardia. Patient did receive 2 L fluid boluses in ER. Patient's white blood cell count elevated at 22.8 lactic acid 2.7. Patient started on Rocephin infectious disease has been consulted. UA positive for urinary tract infection. Urine culture, blood culture and sputum cultures have been ordered. Patient also having elevated liver enzymes. Total bili 2.2 AST 83 AST 91 alkaline phosphatase 179. Abdominal ultrasound will be ordered. Due to patient's nausea amylase and lipase will be ordered. At This time patient is resting comfortably in bed. Family is at bedside all questions answered. On 03/04/2019 patient is alert and oriented 3 resting comfortably in bed. Patient was evaluated by oral surgeon Dr. Mccullough. White blood cell has improved to 12.2. Infectious disease is following. Patient remains on clindamycin and Rocephin. At this time patient denies any chest pain or shortness of breath. Patient denies nausea vomiting or diarrhea. Patient denies any urinary burning or frequency. On 03/05/2019 patient is alert and oriented 3. White Blood cell has improved to 8.7. At this time patient reports feeling improved. Appetite has increased. Patient remains on IV antibiotics. At this time patient denies chest pain or shortness of breath. Patient denies nausea vomiting or diarrhea. Patient denies any urinary burning or frequency On 03/06/2019 Patient was seen and examined on the medical floor, he is alert and oriented 3 in no apparent distress, there is no fever or chills no headache or dizziness no chest pain no shortness of breath no cough no nausea or vomiting no abdominal pain no diarrhea and no urinary symptoms Objective - Vital Signs Vital signs: Vital Signs Temp 98.3 F 03/06/19 12:04 Pulse 102 H 03/06/19 12:04 Resp 16 03/06/19 12:04 BP 104/72 03/06/19 12:04 Pulse Ox 98 03/06/19 12:04 Intake & Output 03/05/19 03/06/19 03/06/19 18:59 06:59 18:59 Intake Total 550 1790 Output Total 7 Balance 543 1790 Weight 50.802 kg Intake: IV 550 Intake, IV Titration 1200 Amount Sodium Chloride 0.9% 1, 1200 000 ml @ 100 mls/hr IV . Q10H [facility] Rx#:[id number] Oral 590 Output: Estimated Blood Loss 7 Other: Voiding Method Toilet Toilet Toilet # Voids 3 # Bowel Movements 1 - Exam In general patient is alert and oriented 3 in no apparent distress Head normocephalic and atraumatic Neck supple no JVD no goiter Lungs clear to auscultation bilaterally no wheezing or crackles Heart regular rate and rhythm S1-S2, no rub or gallop Abdomen is soft nontender nondistended positive bowel sounds no hepatosplenomegaly Extremities no edema no cyanosis or clubbing Neurological examination reveals no gross focal deficit - Labs CBC & Chem 7: 03/06/19 07:48 03/06/19 07:48 Labs: Abnormal Lab Results - Last 24 Hours (Table) 03/06/19 03/06/19 Range/Units 07:48 07:48 RBC 3.15 L (4.30-5.90) m/uL Hgb 10.7 L (13.0-17.5) gm/dL Hct 34.5 L (39.0-53.0) % MCV 109.5 H (80.0-100.0) fL MCHC 30.9 L (31.0-37.0) g/dL RDW 15.7 H (11.5-15.5) % Macrocytosis Marked A Sodium 132 L (137-145) mmol/L Potassium 3.2 L (3.5-5.1) mmol/L Chloride 109 H (98-107) mmol/L Carbon Dioxide 17 L (22-30) mmol/L BUN 3 L (9-20) mg/dL Creatinine 0.38 L (0.66-1.25) mg/dL Glucose 70 L (74-99) mg/dL Calcium 7.2 L (8.4-10.2) mg/dL Total Protein 4.5 L (6.3-8.2) g/dL Albumin 1.8 L (3.5-5.0) g/dL Microbiology - Last 24 Hours (Table) 03/03/19 10:45 Blood Culture - Preliminary Blood No Growth after 72 hours 03/04/19 16:05 Gram Stain - Final Sputum Sputum Culture - Final Madeline albicans 03/05/19 17:45 Gram Stain - Preliminary Mouth Wound Culture - Preliminary 03/05/19 17:45 Anaerobic Culture - Preliminary Mouth 03/03/19 18:40 Gram Stain - Final Mouth Wound Culture - Final Assessment and Plan Plan: 1. Sepsis present on admit due to urinary tract infection and tooth abscess. Lactic acid elevated at 2.7. White blood cell has normalized 2. Tooth abscess. Dr. Mccullough currently following. on Rocephin and clindamycin. CT of the soft tissue of the neck completed showing large abscess centered in the left mandible and extending along the condyle to the mandibular level as well as anteriorly towards the mandibular apex. Patient remains on IV antibiotics. Possible surgical drainage of abscess per Dr. Mccullough awaiting final recommendations 3. Urinary tract infection. Patient currently on Rocephin. urine culture pending 2. Decreased appetite with nausea and diarrhea. Dietitian consulted. Amylase and lipase within normal limits 3. Elevated liver enzymes. Abdominal ultrasound completed showing appendicolith or sludge and cholelithiasis no evidence of acute cholecystitis . Liver enzymes are trending down 4. Tachycardia. Resolved. EKG upon arrival showing sinus tachycardia with a heart rate of 129. received 2 L fluid bolus Patient's heart rate has improved to low 100s. Continue fluid likely due to dehydration and sepsis. Heart rate has improved beta alia has been added 5. Poor dental hygiene. Per patient and family patient has not followed with dentist due to personal fears. 6. Nicotine dependence. Patient educated on smoking sensation greater than 3 minutes on smoking sensation nicotine patch will be ordered. 7. History of severe rheumatoid arthritis. Patient follows with endocrinology. Patient maintained on Humira 8. History of EtOH. Denies any alcohol use for 2 years 9. Left renal lesion. Seen incidentally on abdominal ultrasound left renal lesion does not demonstrate definitive characteristics of a cyst and could be fu rther evaluated with a [address] DVT prophylaxis SCDs for possible surgical intervention. GI prophylaxis Protonix Patient evaluated by pulmonary services cleared for surgery per pulmonary Social work services consulted for d/c planning. Patient may require IV antibiotics upon discharge Hypokalemia maintained on potassium replacement protocol
[2019-03-07 07:49] LABS: Anisocytosis Slight; Basophils % (A) 1 %; Eosinophils # (A) 0.1 k/uL (0-0.7); Eosinophils % (A) 1 %; HCT 29.6 % (39.0-53.0); HGB 9.3 gm/dL (13.0-17.5); Lymphocytes % (A) 29 %; MCH 32.6 pg (25.0-35.0); MCHC 31.3 g/dL (31.0-37.0); Macrocytosis Moderate; Mean Platelet Volume 7.4; Monocytes # (A) 0.8 k/uL (0-1.0); Monocytes % (A) 11 %; Neutrophils # (A) 3.9 k/uL (1.3-7.7); Neutrophils % (A) 56 %; Platelet Count 334 k/uL (150-450); RBC 2.84 m/uL (4.30-5.90); RDW 17.1 % (11.5-15.5)
[2019-03-07 08:09] LABS: ALT 58 U/L (21-72); AST 51 U/L (17-59); African American GFR (CKD) >90 (>60 ml/min/1.73 sqM); Albumin 1.8 g/dL (3.5-5.0); Alkaline Phosphatase 87 U/L (38-126); Anion Gap 2 mmol/L; Blood Urea Nitrogen 2 mg/dL (9-20); Calcium 7.4 mg/dL (8.4-10.2); Carbon Dioxide 22 mmol/L (22-30); Chloride 109 mmol/L (98-107); Glucose 77 mg/dL (74-99); Potassium 3.5 mmol/L (3.5-5.1); Sodium 133 mmol/L (137-145); Total Bilirubin 1.1 mg/dL (0.2-1.3); Total Protein 4.4 g/dL (6.3-8.2)
[2019-03-07 08:25] LABS: MCV 104.2 fL (80.0-100.0)
[2019-03-07] MEDS: METOPROLOL TARTRATE 12.5 MG TAB PO SCH ×2 (08:51→20:37)
[2019-03-07] MEDS: SODIUM CHLORIDE 0.9% 1,000 ML IV SCH ×3 (08:51→20:38)
[2019-03-07] MEDS: PANTOPRAZOLE 40 MG TABLET PO SCH (08:52)
[2019-03-07] MEDS: NICOTINE 14MG/24HR PATCH TRANSDERM SCH (08:52)
[2019-03-07] MEDS: POTASSIUM CHLORIDE ER 20 MEQ TAB.ER PO SCH (08:52)
[2019-03-07] MEDS: CLINDAMYCIN 150 MG CAP PO SCH (08:52)
--- NOTE | 2019-03-07 12:04 | P.PN ---
Subjective Progress Note Date: 03/07/19 Principal diagnosis: Status post incision and drainage and drainage of left mandibular abscess. Status post extraction of all remaining teeth 54-year-old male presented to the ER with a fall and complaints of weakness. Evaluated on March 04 noted left mandibular abscess CAT scan ordered. Patient taken to the operating room March 05 at incision and drainage and removal of all remaining teeth. Has been draining through the drains intraorally and drainage has slowed down on March 07. Patient is resting comfortably in bed family bedside eating and drinking without difficulty. Up walking around in the halls. States that he feels much improved. Objective - Vital Signs Vital signs: Vital Signs Temp 98.1 F 03/07/19 05:00 Pulse 96 03/07/19 08:00 Resp 16 03/07/19 08:00 BP 122/81 03/07/19 05:00 Pulse Ox 100 03/07/19 05:00 Intake & Output 03/06/19 03/07/19 03/07/19 18:59 06:59 18:59 Intake Total 1490 Balance 1490 Intake: Intake, IV Titration 1400 Amount Potassium Chloride 10 meq 200 In Water For Injection 1 100ml.bag @ 100 mls/hr IVPB Q1H [facility] Rx#: [id number] Sodium Chloride 0.9% 1, 1200 000 ml @ 100 mls/hr IV . Q10H [facility] Rx#:[id number] Oral 90 Other: Voiding Method Toilet Toilet Toilet # Voids 1 - Exam Limited oral exam shows normal opening no active bleeding in the mouth no drainage noted from the [place] drains placed bilaterally on the left jaw. Food is entrapped around the drain. No soft tissue swelling noted posterior or opharynx or floor of mouth. Able to palpate the drain on the medial aspect of the jaw from the outside of his face. Able to palpate the angle of the jaw on the left. Upon removal of the drain no discharge noted. Irrigated the mouth in the area the drain to remove the food. I reviewed the wound culture collected on 03/03/2019 noted that there were moderate gram-negative bacilli and some gram-positive bacilli as well as gram-positive cocci and some rare yeast. - Labs CBC & Chem 7: 03/07/19 07:20 03/07/19 07:20 Labs: Abnormal Lab Results - Last 24 Hours (Table) 03/07/19 03/07/19 Range/Units 07:20 07:20 RBC 2.84 L (4.30-5.90) m/uL Hgb 9.3 L (13.0-17.5) gm/dL Hct 29.6 L (39.0-53.0) % MCV 104.2 H D (80.0-100.0) fL RDW 17.1 H (11.5-15.5) % Sodium 133 L (137-145) mmol/L Chloride 109 H (98-107) mmol/L BUN 2 L (9-20) mg/dL Creatinine 0.39 L (0.66-1.25) mg/dL Calcium 7.4 L (8.4-10.2) mg/dL Total Protein 4.4 L (6.3-8.2) g/dL Albumin 1.8 L (3.5-5.0) g/dL Microbiology - Last 24 Hours (Table) 03/05/19 17:45 Gram Stain - Preliminary Mouth Wound Culture - Preliminary 03/03/19 10:45 Blood Culture - Preliminary Blood No Growth after 72 hours 03/04/19 16:05 Gram Stain - Final Sputum Sputum Culture - Final Madeline albicans Assessment and Plan Assessment: Patient responding very well to incision and drainage and extraction of remaining teeth. He feels much improved and was questioning when discharge would be. Due to no drainage intraorally anymore drains were removed Plan: The patient's responding very well to current antibiotic therapy. Cultures taken on March 03 were reviewed and I feel that these cultures were well taken and reflect the appropriate bacteria. Suspect similar results from the cultures taken in the operating room. Recommend the patient rinse his mouth after every time he eats in order to allow the incision and drainage site remained clean instructions given and the patient understood. I recommend the patient's discharged home on the appropriate oral antibiotic follow-up in my office in 8 days. Time with Patient: Less than 30
[2019-03-07] MEDS ORDERED: ALPRAZolam 0.25 MG TAB PO PRN (13:02)
--- NOTE | 2019-03-07 13:04 | P.PN ---
Subjective Progress Note Date: 03/07/19 This is a 54-year-old male patient who presented to the ER with complaints of a fall with overall increased weakness. Patient was urged by family members to come to the ER. Patient reports he was at the grocery store in the grocery cart was moved patient fell onto his buttocks. Family is currently at bedside. Per patient and family he's had increased weakness with nausea and vomiting over the past few days. Per patient's family patient has had decreased appetite. Patient reports that his only health history includes rheumatoid arthritis which he follows with endocrinology . Patient does report he has been treated for an ear infection that he states feels much improved. Patient also has poor dental hygiene. Per patient's family patient is very reluctant to go to health care providers. Patient denies any fevers at home. Patient denies any chest pain or shortness of breath. Chest x-ray completed showing no evidence of acute cardiopulmonary disease. Stable findings of emphysema. Partially visualized dilated small bowel loops in the upper abdomen. EKG completed showing sinus tac hycardia. Patient did receive 2 L fluid boluses in ER. Patient's white blood cell count elevated at 22.8 lactic acid 2.7. Patient started on Rocephin infectious disease has been consulted. UA positive for urinary tract infection. Urine culture, blood culture and sputum cultures have been ordered. Patient also having elevated liver enzymes. Total bili 2.2 AST 83 AST 91 alkaline phosphatase 179. Abdominal ultrasound will be ordered. Due to patient's nausea amylase and lipase will be ordered. At This time patient is resting comfortably in bed. Family is at bedside all questions answered. On 03/04/2019 patient is alert and oriented 3 resting comfortably in bed. Patient was evaluated by oral surgeon Dr. Mccullough. White blood cell has improved to 12.2. Infectious disease is following. Patient remains on clindamycin and Rocephin. At this time patient denies any chest pain or shortness of breath. Patient denies nausea vomiting or diarrhea. Patient denies any urinary burning or frequency. On 03/05/2019 patient is alert and oriented 3. White Blood cell has improved to 8.7. At this time patient reports feeling improved. Appetite has increased. Patient remains on IV antibiotics. At this time patient denies chest pain or shortness of breath. Patient denies nausea vomiting or diarrhea. Patient denies any urinary burning or frequency On 03/06/2019 Patient was seen and examined on the medical floor, he is alert and oriented 3 in no apparent distress, there is no fever or chills no headache or dizziness no chest pain no shortness of breath no cough no nausea or vomiting no abdominal pain no diarrhea and no urinary symptoms On 03/07/2019 patient is alert and oriented in no apparent distress , hemoglobin is down to 9.3, potassium was corrected to normal levels, liver enzymes are back to normal, patient is complaining of anxiety otherwise he denies any complaints there is no fever or chills no headache or dizziness no chest pain no shortness of breath no cough no nausea or vomiting no abdominal pain no diarrhea and no urinary symptoms Objective - Vital Signs Vital signs: Vital Signs Temp 98.1 F 03/07/19 05:00 Pulse 96 03/07/19 08:00 Resp 16 03/07/19 08:00 BP 122/81 03/07/19 05:00 Pulse Ox 100 03/07/19 05:00 Intake & Output 03/06/19 03/07/19 03/07/19 18:59 06:59 18:59 Intake Total 1490 Balance 1490 Intake: Intake, IV Titration 1400 Amount Potassium Chloride 10 meq 200 In Water For Injection 1 100ml.bag @ 100 mls/hr IVPB Q1H [facility] Rx#: [id number] Sodium Chloride 0.9% 1, 1200 000 ml @ 100 mls/hr IV . Q10H [facility] Rx#:[id number] Oral 90 Other: Voiding Method Toilet Toilet Toilet # Voids 1 - Exam In general patient is alert and oriented 3 in no apparent distress Head normocephalic and atraumatic Neck supple no JVD no goiter Lungs clear to auscultation bilaterally no wheezing or crackles Heart regular rate and rhythm S1-S2, no rub or gallop Abdomen is soft nontender nondistended positive bowel sounds no hepa tosplenomegaly Extremities no edema no cyanosis or clubbing Neurological examination reveals no gross focal deficit - Labs CBC & Chem 7: 03/07/19 07:20 03/07/19 07:20 Labs: Abnormal Lab Results - Last 24 Hours (Table) 03/07/19 03/07/19 Range/Units 07:20 07:20 RBC 2.84 L (4.30-5.90) m/uL Hgb 9.3 L (13.0-17.5) gm/dL Hct 29.6 L (39.0-53.0) % MCV 104.2 H D (80.0-100.0) fL RDW 17.1 H (11.5-15.5) % Sodium 133 L (137-145) mmol/L Chloride 109 H (98-107) mmol/L BUN 2 L (9-20) mg/dL Creatinine 0.39 L (0.66-1.25) mg/dL Calcium 7.4 L (8.4-10.2) mg/dL Total Protein 4.4 L (6.3-8.2) g/dL Albumin 1.8 L (3.5-5.0) g/dL Microbiology - Last 24 Hours (Table) 03/05/19 17:45 Gram Stain - Preliminary Mouth Wound Culture - Preliminary 03/03/19 10:45 Blood Culture - Preliminary Blood No Growth after 72 hours 03/04/19 16:05 Gram Stain - Final Sputum Sputum Culture - Final Madeline albicans Assessment and Plan Plan: 1. Sepsis present on admit due to urinary tract infection and tooth abscess. Lactic acid elevated at 2.7. White blood cell has normalized 2. Tooth abscess. Dr. Mccullough currently following. on Rocephin and clindamycin. CT of the soft tissue of the neck completed showing large abscess centered in the left mandible and extending along the condyle to the mandibular level as well as anteriorly towards the mandibular apex. Patient remains on IV an tibiotics. Possible surgical drainage of abscess per Dr. Mccullough awaiting final recommendations 3. Urinary tract infection. Patient currently on Rocephin. urine culture pending 2. Decreased appetite with nausea and diarrhea. Dietitian consulted. Amylase and lipase within normal limits 3. Elevated liver enzymes. Abdominal ultrasound completed showing appendicolith or sludge and cholelithiasis no evidence of acute cholecystitis . Liver enzymes are trending down 4. Tachycardia. Resolved. EKG upon arrival showing sinus tachycardia with a heart rate of 129. received 2 L fluid bolus Patient's heart rate has improved to low 100s. Continue fluid likely due to dehydration and sepsis. Heart rate has improved beta alia has been added 5. Poor dental hygiene. Per patient and family patient has not followed with dentist due to personal fears. 6. Nicotine dependence. Patient educated on smoking sensation greater than 3 minutes on smoking sensation nicotine patch will be ordered. 7. History of severe rheumatoid arthritis. Patient follows with endocrinology. Patient maintained on Humira 8. History of EtOH. Denies any alcohol use for 2 years 9. Left renal lesion. Seen incidentally on abdominal ultrasound left renal lesion does not demonstrate definitive characteristics of a cyst and could be further evaluated with a [address] DVT prophylaxis SCDs for possible surgical intervention. GI prophylaxis Protonix Patient evaluated by pulmonary services cleared for surgery per pulmonary Social work services consulted for d/c planning. Patient may require IV antibiotics upon discharge Hypokalemia maintained on potassium replacement protocol
--- NOTE | 2019-03-07 14:54 | P.PN ---
Subjective Progress Note Date: 03/06/19 Principal diagnosis: Left submandibular Abscess with decaying teeth Patient is a 54-year-old male admitted to hospital after pending the patient did have a syncopal episode and fall with generalized weakness the patient was noticed to have elevated white count and further workup did shows evidence of left submandibular abscess with multiple decaying teeth, the patient has been taken to the OR today and is status post drainage of the submandibular abscess and extraction of his teeth On today's evaluation that is 03/06/2019, the patient remains to be febrile, the patient currently denies having any pain on the left jaw and no difficulty swallowing no chest pain shortness of breath or cough no abdominal pain and no diarrhea Objective - Vital Signs Vital signs: Vital Signs Temp 98.3 F 03/06/19 12:04 Pulse 102 H 03/06/19 12:04 Resp 16 03/06/19 12:04 BP 104/72 03/06/19 12:04 Pulse Ox 98 03/06/19 12:04 Intake & Output 03/05/19 03/06/19 03/06/19 18:59 06:59 18:59 Intake Total 550 1790 Output Total 7 Balance 543 1790 Weight 50.802 kg Intake: IV 550 Intake, IV Titration 1200 Amount Sodium Chloride 0.9% 1, 1200 000 ml @ 100 mls/hr IV . Q10H [facility] Rx#:[id number] Oral 590 Output: Estimated Blood Loss 7 Other: Voiding Method Toilet Toilet Toilet # Voids 3 # Bowel Movements 1 - Exam GENERAL DESCRIPTION:[ Patient is awake and alert in no distress] HEENT: [Oral mucosa is dry and no pharyngeal erythema] EYES : [No pallor or scleral icterus] RESPIRATORY SYSTEM: [Unlabored breathing clear to auscultation] CARDIA VASCULAR SYSTEM: [S1-S2 regular rate and rhythm no murmur] GI: [Abdominal soft there's no tenderness no organomegaly] EXTREMITIES: [No edema feet] - Labs CBC & Chem 7: 03/07/19 07:20 03/07/19 07:20 Labs: Abnormal Lab Results - Last 24 Hours (Table) 03/06/19 03/06/19 Range/Units 07:48 07:48 RBC 3.15 L (4.30-5.90) m/uL Hgb 10.7 L (13.0-17.5) gm/dL Hct 34.5 L (39.0-53.0) % MCV 109.5 H (80.0-100.0) fL MCHC 30.9 L (31.0-37.0) g/dL RDW 15.7 H (11.5-15.5) % Macrocytosis Marked A Sodium 132 L (137-145) mmol/L Potassium 3.2 L (3.5-5.1) mmol/L Chloride 109 H (98-107) mmol/L Carbon Dioxide 17 L (22-30) mmol/L BUN 3 L (9-20) mg/dL Creatinine 0.38 L (0.66-1.25) mg/dL Glucose 70 L (74-99) mg/dL Calcium 7.2 L (8.4-10.2) mg/dL Total Protein 4.5 L (6.3-8.2) g/dL Albumin 1.8 L (3.5-5.0) g/dL Microbiology - Last 24 Hours (Table) 03/03/19 10:45 Blood Culture - Preliminary Blood No Growth after 72 hours 03/04/19 16:05 Gram Stain - Final Sputum Sputum Culture - Final Madeline albicans 03/05/19 17:45 Gram Stain - Preliminary Mouth Wound Culture - Preliminary 03/05/19 17:45 Anaerobic Culture - Preliminary Mouth 03/03/19 18:40 Gram Stain - Final Mouth Wound Culture - Final Assessment and Plan Assessment: Patient with leukocytosis source is likely left submandibular abscesses and multiple decaying teeth status post drainage of the submandibular abscess and extraction of decaying teeth, the likely organism that need to cover oral johnson including gram-positive anaerobes and anaerobes--with cultures currently pending Plan: 1- Rocephin 2 g daily and clindamycin 600 mg every 8 hours 2-waiting for the culture to be finalized to determine discharge antibiotic Time with Patient: Less than 30
[2019-03-07] MEDS: AMPICILLIN-SULBACTAM 3 GM in SODIUM CHLORIDE 0.9% 100 ML IVPB SCH ×2 (16:59→23:20)
--- NOTE | 2019-03-07 22:20 | P.PN ---
Subjective Progress Note Date: 03/07/19 Principal diagnosis: Left submandibular Abscess with decaying teeth Patient is a 54-year-old male admitted to hospital after pending the patient did have a syncopal episode and fall with generalized weakness the patient was noticed to have elevated white count and further workup did shows evidence of left submandibular abscess with multiple decaying teeth, the patient has been taken to the OR today and is status post drainage of the submandibular abscess and extraction of his teeth On today's evaluation that is 03/07/2019, the patient denies any fever or chills, the patient currently denies having any pain on the left jaw and no difficulty swallowing, the drain has been removed the patient denies chest pain shortness of breath or cough no abdominal pain and no diarrhea Objective - Vital Signs Vital signs: Vital Signs Temp 97.9 F 03/07/19 12:28 Pulse 106 H 03/07/19 12:28 Resp 16 03/07/19 12:28 BP 110/79 03/07/19 12:28 Pulse Ox 99 03/07/19 12:28 Intake & Output 03/06/19 03/07/19 03/07/19 18:59 06:59 18:59 Intake Total 1490 1200 Balance 1490 1200 Intake: Intake, IV Titration 1400 Amount Potassium Chloride 10 meq 200 In Water For Injection 1 100ml.bag @ 100 mls/hr IVPB Q1H [facility] Rx#: [id number] Sodium Chloride 0.9% 1, 1200 000 ml @ 100 mls/hr IV . Q10H [facility] Rx#:[id number] Oral 90 1200 Other: Voiding Method Toilet Toilet Toilet # Voids 1 2 - Exam GENERAL DESCRIPTION:[ Patient is awake and alert in no distress] HEENT: [Oral mucosa is dry and no pharyngeal erythema] EYES : [No pallor or scleral icterus] RESPIRATORY SYSTEM: [Unlabored breathing clear to auscultation] CARDIA VASCULAR SYSTEM: [S1-S2 regular rate and rhythm no murmur] GI: [Abdominal soft there's no tenderness no organomegaly] EXTREMITIES: [No edema feet] - Labs CBC & Chem 7: 03/07/19 07:20 03/07/19 07:20 Labs: Abnormal Lab Results - Last 24 Hours (Table) 03/07/19 03/07/19 Range/Units 07:20 07:20 RBC 2.84 L (4.30-5.90) m/uL Hgb 9.3 L (13.0-17.5) gm/dL Hct 29.6 L (39.0-53.0) % MCV 104.2 H D (80.0-100.0) fL RDW 17.1 H (11.5-15.5) % Sodium 133 L (137-145) mmol/L Chloride 109 H (98-107) mmol/L BUN 2 L (9-20) mg/dL Creatinine 0.39 L (0.66-1.25) mg/dL Calcium 7.4 L (8.4-10.2) mg/dL Total Protein 4.4 L (6.3-8.2) g/dL Albumin 1.8 L (3.5-5.0) g/dL Microbiology - Last 24 Hours (Table) 03/03/19 10:45 Blood Culture - Preliminary Blood No Growth after 96 hours 03/05/19 17:45 Gram Stain - Preliminary Mouth Wound Culture - Preliminary Assessment and Plan Assessment: Patient with leukocytosis source is likely left submandibular abscesses and multiple decaying teeth status post drainage of the submandibular abscess and extraction of decaying teeth, the likely organism that need to cover oral johnson including gram-positive anaerobes and anaerobes--with cultures currently pending, growing Madeline albicans so for Plan: 1-we will transition his antibiotic therapy to Unasyn 3 g every 6 hours and oral Diflucan 200 daily, discharge antibiotic will depend upon final cultures and continue supportive care Time with Patient: Less than 30
[2019-03-07] MEDS: FLUCONAZOLE 100 MG TAB PO SCH (22:33)
[2019-03-08] MEDS: AMPICILLIN-SULBACTAM 3 GM in SODIUM CHLORIDE 0.9% 100 ML IVPB SCH ×2 (05:50→11:25)
[2019-03-08] MEDS: PANTOPRAZOLE 40 MG TABLET PO SCH (07:01)
[2019-03-08] MEDS: METOPROLOL TARTRATE 12.5 MG TAB PO SCH (07:01)
[2019-03-08] MEDS: NICOTINE 14MG/24HR PATCH TRANSDERM SCH (07:02)
[2019-03-08] MEDS: FLUCONAZOLE 100 MG TAB PO SCH (07:02)
[2019-03-08] MEDS: POTASSIUM CHLORIDE ER 20 MEQ TAB.ER PO SCH ×3 (07:02→11:20)
[2019-03-08 08:22] LABS: Anisocytosis Slight; Basophils # (A) 0.1 k/uL (0-0.2); Basophils % (A) 1 %; Eosinophils # (A) 0.1 k/uL (0-0.7); Eosinophils % (A) 1 %; HCT 34.8 % (39.0-53.0); HGB 11.3 gm/dL (13.0-17.5); Lymphocytes # (A) 2.7 k/uL (1.0-4.8); Lymphocytes % (A) 24 %; MCH 33.4 pg (25.0-35.0); MCHC 32.3 g/dL (31.0-37.0); MCV 103.3 fL (80.0-100.0); Macrocytosis Moderate; Mean Platelet Volume 7.8; Monocytes # (A) 1.1 k/uL (0-1.0); Monocytes % (A) 10 %; Neutrophils # (A) 7.2 k/uL (1.3-7.7); Neutrophils % (A) 64 %; Platelet Count 434 k/uL (150-450); RBC 3.37 m/uL (4.30-5.90); RDW 16.9 % (11.5-15.5); WBC 11.3 k/uL (3.8-10.6)
[2019-03-08 08:44] LABS: ALT 66 U/L (21-72); AST 65 U/L (17-59); African American GFR (CKD) >90 (>60 ml/min/1.73 sqM); Albumin 2.3 g/dL (3.5-5.0); Alkaline Phosphatase 107 U/L (38-126); Anion Gap 7 mmol/L; Blood Urea Nitrogen <2 mg/dL (9-20); Calcium 7.7 mg/dL (8.4-10.2); Carbon Dioxide 22 mmol/L (22-30); Chloride 104 mmol/L (98-107); Glucose 93 mg/dL (74-99); Potassium 3.3 mmol/L (3.5-5.1); Sodium 133 mmol/L (137-145); Total Bilirubin 1.1 mg/dL (0.2-1.3); Total Protein 5.4 g/dL (6.3-8.2)
[2019-03-08] MEDS ORDERED: Potassium Replacement Protocol 1 EACH MISC MISCELLANE PRN (09:03)
[2019-03-08] MEDS ORDERED: Magnesium Replacement Protocol 1 EACH MISC MISCELLANE PRN (12:34)
--- NOTE | 2019-03-08 13:21 | P.DS ---
Providers Date of admission: 03/04/19 14:23 Expected date of discharge: 03/08/19 Attending physician: Vu Garsia Consults: 03/03/19 08:46 Consult Physician Routine Consulting Provider: Hubert Holland Consult Reason/Comments: infection sepsis Do you want consulting provider notified?: Yes 03/03/19 15:53 Consult Physician Routine Consulting Provider: Doyle Mccullough Consult Reason/Comments: Possible abscess Do you want consulting provider notified?: Yes 03/04/19 08:55 Consult Physician Routine Consulting Provider: Wesley Yousif Consult Reason/Comments: pulmonary clearance Do you want consulting provider notified?: Yes Primary care physician: Vu Garsia [facility] Course: Discharge diagnosis 1. Sepsis present on admit due to urinary tract infection and tooth abscess. Lactic acid elevated at 2.7. White blood cell has normalized 2. Tooth abscess. Dr. Mccullough currently following. on Rocephin and clindamycin. CT of the soft tissue of the neck completed showing large abscess centered in the left mandible and extending along the condyle to the mandibular level as well as anteriorly towards the mandibular apex. Patient remains on IV antibiotics. Status post incision and drainage and extraction of remaining teeth. Patient feels much improved. Per Dr. Mccullough patient to rinse mouth after every time he eats Marchal of incision and drainage site to heal. Patient has been cleared for discharge from infectious disease antibiotics per ID 3. Urinary tract infection. Patient currently on Rocephin. 2. Decreased appetite with nausea and diarrhea. Dietitian consulted. Amylase and lipase within normal limits 3. Elevated liver enzymes. Abdominal ultrasound completed showing appendicolith or sludge and cholelithiasis no evidence of acute cholecystitis . Liver enzymes are trending down 4. Tachycardia. Resolved. EKG upon arrival showing sinus tachycardia with a heart rate of 129. received 2 L fluid bolus Patient's heart rate has improved to low 100s. Continue fluid likely due to dehydration and sepsis. Heart rate has improved beta alia has been added. Patient potassium 3.3 magnesium 1.5 replace per protocol. Patient's Lopressor has been increased to 25 twice a day. Patient to follow-up with his PCP for further management 5. Poor dental hygiene. Per patient and family patient has not followed with dentist due to personal fears. During hospitalization patient had all teeth extracted. 6. Nicotine dependence. Patient educated on smoking sensation greater than 3 minutes on smoking sensation nicotine patch will be ordered. 7. History of severe rheumatoid arthritis. Patient follows with endocrinology. Patient maintained on Humira 8. History of EtOH. Denies any alcohol use for 2 years 9. Left renal lesion. Seen incidentally on abdominal ultrasound left renal lesion does not demonstrate definitive characteristics of a cyst and could be further evaluated with a [address] 10. Severe calorie malnutrition Hospital course This is a 54-year-old male patient who presented to the ER with complaints of a fall with overall increased weakness. Patient was urged by family members to come to the ER. Patient reports he was at the grocery store in the grocery cart was moved patient fell onto his buttocks. Family is currently at bedside. Per patient and family he's had increased weakness with nausea and vomiting over the past few days. Per patient's family patient has had decreased appetite. Patient reports that his only health history includes rheumatoid arthritis which he follows with endocrinology . Patient does report he has been treated for an ear infection that he states feels much improved. Patient also has poor dental hygiene. Per patient's family patient is very reluctant to go to health care providers. Patient denies any fevers at home. Patient denies any chest pain or shortness of breath. Chest x-ray completed showing no evidence of acute cardiopulmonary disease. Stable findings of emphysema. Partially visualized dilated small bowel loops in the upper abdomen. EKG completed showing sinus tachycardia. Patient did receive 2 L fluid boluses in ER. Patient's white blood cell count elevated at 22.8 lactic acid 2.7. Patient started on Rocephin infectious disease has been consulted. UA positive for urinary tract infection. Urine culture, blood culture and sputum cultures have been ordered. Patient also having elevated liver enzymes. Total bili 2.2 AST 83 AST 91 alkaline phosphatase 179. Abdominal ultrasound will be ordered. Due to patient's nausea amylase and lipase will be ordered. At This time patient is resting comfortably in bed. Family is at bedside all questions answered. On 03/04/2019 patient is alert and oriented 3 resting comfortably in bed. Patient was evaluated by oral surgeon Dr. Mccullough. White blood cell has improved to 12.2. Infectious disease is following. Patient remains on clindamycin and Rocephin. At this time patient denies any chest pain or shortness of breath. Patient denies nausea vomiting or diarrhea. Patient denies any urinary burning or frequency. On 03/05/2019 patient is alert and oriented 3. White Blood cell has improved to 8.7. At this time patient reports feeling improved. Appetite has increased. Patient remains on IV antibiotics. At this time patient denies chest pain or shortness of breath. Patient denies nausea vomiting or diarrhea. Patient denies any urinary burning or frequency On 03/06/2019 Patient was seen and examined on the medical floor, he is alert and oriented 3 in no apparent distress, there is no fever or chills no headache or dizziness no chest pain no shortness of breath no cough no nausea or vomiting no abdominal pain no diarrhea and no urinary symptoms On 03/07/2019 patient is alert and oriented in no apparent distress , hemoglobin is down to 9.3, potassium was corrected to normal levels, liver enzymes are back to normal, patient is complaining of anxiety otherwise he denies any complaints there is no fever or chills no headache or dizziness no chest pain no shortness of breath no cough no nausea or vomiting no abdominal pain no diarrhea and no urinary symptoms On 03/08/2019 patient is alert and oriented 3. Patient reports he feels significantly improved since drainage of tooth abscess and extraction of teeth. Infectious disease has recommended DC antibiotics. Patient's heart rate elevated in the low 100s. Patient will be prescribed beta alia to be 5 twice a day. Magnesium and potassium to be replaced prior to discharge. Patient to follow-up with his PCP for further management. At this time patient denies chest pain or shortness of breath. Patient denies nausea vomiting or diarrhea. Patient denies any urinary burning or frequency I performed an examination of the patient and discussed their management with the Nurse Practitioner. I have reviewed the Nurse Practitioner's notes and agree with the documented findings and plan of care Patient Condition at Discharge: Stable Plan - Discharge Summary Discharge Rx Participant: No New Discharge Prescriptions: New Amoxic-Pot Clav 875-125Mg [Augmentin 875-125] 1 tab PO Q12HR #28 tablet Fluconazole [Diflucan] 100 mg PO DAILY #14 tab Nicotine 14Mg/24Hr Patch [Habitrol] 1 patch TRANSDERM DAILY 30 Days #30 patch Metoprolol Tartrate [Lopressor] 25 mg PO BID 30 Days #60 tab Continue Folic Acid 1 mg PO DAILY Adalimumab [Humira] 40 mg SQ Q14D Ibuprofen [Motrin] 600 mg PO Q6HR PRN #40 day PRN Reason: Pain Potassium Chloride ER [K-Dur 20] 20 meq PO DAILY Discontinued Amoxicillin/Potassium Clav [Augmentin 500-125 Tablet] 500 mg PO BID Discharge Medication List Adalimumab [Humira] 40 mg SQ Q14D 05/19/17 [History] Folic Acid 1 mg PO DAILY 05/19/17 [History] Ibuprofen [Motrin] 600 mg PO Q6HR PRN #40 day 05/20/17 [Rx] Potassium Chloride ER [K-Dur 20] 20 meq PO DAILY 03/03/19 [History] Amoxic-Pot Clav 875-125Mg [Augmentin 875-125] 1 tab PO Q12HR #28 tablet 03/08/19 [Rx] Fluconazole [Diflucan] 100 mg PO DAILY #14 tab 03/08/19 [Rx] Metoprolol Tartrate [Lopressor] 25 mg PO BID 30 Days #60 tab 03/08/19 [Rx] Nicotine 14Mg/24Hr Patch [Habitrol] 1 patch TRANSDERM DAILY 30 Days #30 patch 03/08/19 [Rx] Follow up Appointment(s)/Referral(s): Vu Garsia MD [Primary Care Provider] - 1-2 days Hubert Holland MD [STAFF PHYSICIAN] - 1 Week
[2019-03-08] MEDS: MAGNESIUM SULFATE-D5W PMX 1 GM in DEXTROSE/WATER 1 100ML.BAG IVPB SCH ×2 (13:27→14:27)
[2019-03-08 15:26] VITALS: BP 132/87; PULSE 109; TEMP 97.5
[2019-03-08] MEDS ORDERED: METOPROLOL TARTRATE 25 MG TAB PO SCH (21:00)
== END 2019-03-08 15:59 | disposition home or self-care (01) | DRG 871 ==
LOC: EC 04:53 → 3NMEDONC 07:37 → OBSVTOIN 03-04 14:23
PROVIDERS: ADMIT Internal Medicine; ATTEND Internal Medicine
PROC: 0CTW0Z1 Resection of Upper Tooth, Multiple, Open Approach (ICD-10-PCS; 2019-03-05)
PROC: 0C9X0Z0 Drainage of Lower Tooth, Open Approach, Single (ICD-10-PCS; 2019-03-05)
PROC: 0CTX0Z1 Resection of Lower Tooth, Multiple, Open Approach (ICD-10-PCS; principal; 2019-03-05 13:30)
DX: A41.9 Sepsis, unspecified organism (principal); E43 Unspecified severe protein-calorie malnutrition; R64 Cachexia; Z68.1 Body mass index [BMI] 19.9 or less, adult; E87.2 Acidosis; N39.0 Urinary tract infection, site not specified; K12.2 Cellulitis and abscess of mouth; E86.0 Dehydration; J43.9 Emphysema, unspecified; M27.2 Inflammatory conditions of jaws; K04.7 Periapical abscess without sinus; K02.9 Dental caries, unspecified; H66.90 Otitis media, unspecified, unspecified ear; K38.1 Appendicular concretions; F41.9 Anxiety disorder, unspecified; K80.20 Calculus of gallbladder without cholecystitis without obstruction; M19.90 Unspecified osteoarthritis, unspecified site; M06.9 Rheumatoid arthritis, unspecified; N28.9 Disorder of kidney and ureter, unspecified; R74.8 Abnormal levels of other serum enzymes; F10.11 Alcohol abuse, in remission; F17.210 Nicotine dependence, cigarettes, uncomplicated; Z71.6 Tobacco abuse counseling; Z79.899 Other long term (current) drug therapy; Z88.5 Allergy status to narcotic agent; W18.09XA Striking against other object with subsequent fall, initial encounter; Y92.512 Supermarket, store or market as the place of occurrence of the external cause; Z80.9 Family history of malignant neoplasm, unspecified
CPT/HCPCS: 36415; 70450; 70487; 70491; 71046; 76700; 80053; 81001; 82150; 83605; 83690; 83735; 84132; 84443; 85025; 87040; 87070; 87075; 87086; 87205; 87324; 93005; 94760; 96361; 96365; 96375; 99285

== ENCOUNTER → 2024-08-23 | Outpatient (CLI) | payer OTHER ==
--- NOTE | 2024-08-23 15:49 | BD ---
EXAMINATION TYPE: Axial Bone Density DATE OF EXAM: 08/23/2024 CLINICAL HISTORY: 59 years old Male. ICD-10 CODE: M81.0 Osteoporosis , Additional History: Height: 67 in Weight: 109 lbs FRAX RISK QUESTIONS: Rheumatoid Arthritis: yes Current Tobacco Use: yes EXAM MEASUREMENTS: Bone mineral densitometry was performed using the [employer] System. Bone mineral density as measured about the Lumbar spine is: ----- L1-L4(G/cm2): 0.637 T Score Values are as follows: ----- L1: -4.9 ----- L2: -4.9 ----- L3: -5.0 ----- L4: -3.7 ----- L1-L4: -4.5 Z Score Values are as follows: ----- L1: -3.9 ----- L2: -4.0 ----- L3: -4.0 ----- L4: -2.7 ----- L1-L4: -3.6 Bone mineral density baseline Bone mineral density about the R hip (g/cm2): 0.580 Bone mineral density about the L hip (g/cm2): 0.624 T Score values are as follows: -----R Neck: -3.1 -----L Neck: -3.2 -----R Total: -3.4 -----L Total: -3.0 Z Score values are as follows: -----R Neck: -2.0 -----L Neck: -2.1 -----R Total: -2.6 -----L Total: -2.3 Bone mineral density baseline FRAX%s: The graph provided illustrates a 17.5% chance for a major osteoporotic fx and a 11.2% chance for the hips probability for fx in 10 years time. IMPRESSION: Osteoporosis (T Score less than -2.5). There is increased fracture risk and therapy is usually indicated based on age. Re-Screen 1-2 years. NOTE: T-SCORE=SD OF THE YOUNG ADULT MEAN. [facility], Workstation: [id number], 08/23/2024 3:47 PM
== END | disposition home or self-care (01) ==
LOC: RADBDWWP 10:17
PROVIDERS: ATTEND Family Medicine
DX: M81.0 Age-related osteoporosis without current pathological fracture (principal)
CPT/HCPCS: 77080

== ENCOUNTER 2025-01-02 17:04 | Observation (INO) | payer OTHER ==
--- NOTE | 2025-01-02 17:41 | ED ---
Chest Pain HPI - General Chief Complaint: Chest Pain Stated Complaint: back pain, chest pain Time Seen by Provider: 01/02/25 17:15 Source: patient, RN notes reviewed, old records reviewed Mode of arrival: ambulatory Limitations: no limitations - History of Present Illness Initial Comments: This is a 59 male to the ER today. He is presenting to us for evaluation of multiple complaints chest pain shortness of breath back pain mainly severe back pain. Patient is on Eliquis has history of DVT, history of severe COPD with difficulty breathing and having current difficulty breathing today. Patient's activity level some significantly diminished, back pain is severe, patient has seen primary care scheduled for outpatient CT scan MD Complaint: chest pain, other (Back pain thoracic back pain) -: week(s) Onset: during rest, during exertion (Shortness of breath with exertion) Pain Location: substernal, right chest Pain Radiation: back Severity: severe Severity scale (1-10): 10 Consistency: constant Improves With: nothing Worsens With: nothing Anginal Symptoms: dyspnea Other Symptoms: palpitations Treatments Prior to Arrival: none - Related Data Home Medications Medication Instructions Recorded Confirmed Folic Acid 1 mg PO DAILY 05/19/17 01/02/25 ALPRAZolam [Xanax] 0.5 mg PO TID 01/02/25 01/02/25 Adalimumab [Humira(Cf) Pen] 40 mg SQ Q14D 01/02/25 01/02/25 Albuterol Sulfate [Albuterol 1 - 2 puff PO RT-QID PRN 01/02/25 01/02/25 Sulfate Hfa] Alendronate Sodium [Fosamax] 70 mg PO SA 01/02/25 01/02/25 Apixaban [Eliquis] 5 mg PO BID 01/02/25 01/02/25 Baclofen 5 mg PO DAILY PRN 01/02/25 01/02/25 Ibuprofen [Motrin] 600 mg PO BID PRN 01/02/25 01/02/25 Nicotine 21Mg/24Hr Patch [Habitrol] 1 patch TRANSDERM DAILY 01/02/25 01/02/25 Ondansetron [Zofran] 4 mg PO Q6H PRN 01/02/25 01/02/25 metHOTREXate sodium [Methotrexate] 25 mg PO WE 01/02/25 01/02/25 traMADol HCL 50 mg PO BID 01/02/25 01/02/25 Allergies Allergy/AdvReac Type Severity Reaction Status Date / Time codeine Allergy Nausea & Verified 01/02/25 18:59 Vomiting Review of Systems ROS Statement: Those systems with pertinent positive or pertinent negative responses have been documented in the HPI. ROS Other: All systems not noted in ROS Statement are negative. EKG Findings - EKG Comments: EKG Findings:: EKG sinus 99 MT 148 QRS 78 QTc 371 - EKG Results: EKG: interpreted by FUENTES Past Medical History Past Medical History: Deep Vein Thrombosis (DVT), Rheumatoid Arthritis (RA) Additional Past Medical History / Comment(s): arthritis History of Any Multi-Drug Resistant Organisms: None Reported Past Surgical History: No Surgical Hx Reported Additional Past Surgical History / Comment(s): dental surgery Past Anesthesia/Blood Transfusion Reactions: No Reported Reaction Past Psychological History: No Psychological Hx Reported Smoking Status: Former smoker Past Alcohol Use History: Occasional Past Drug Use History: None Reported - Past Family History Mother Additional Family Medical History / Comment(s): Pt states mother is possibly from cancer. Father Additional Family Medical History / Comment(s): Pt states father is healthy except for alot of hernias/repairs. General Exam Limitations: no limitations General appearance: alert, in no apparent distress, anxious, cachectic Head exam: Present: atraumatic, normocephalic, normal inspection Eye exam: Present: normal appearance, PERRL, EOMI. Absent: scleral icterus, conjunctival injection, periorbital swelling ENT exam: Present: normal exam, mucous membranes moist Neck exam: Present: normal inspection. Absent: tenderness, meningismus, lymphadenopathy Respiratory exam: Present: normal lung sounds bilaterally. Absent: respiratory distress, wheezes, rales, rhonchi, stridor Cardiovascular Exam: Present: normal rhythm, tachycardia, normal heart sounds. Absent: systolic murmur, diastolic murmur, rubs, gallop, clicks GI/Abdominal exam: Present: soft, normal bowel sounds. Absent: distended, tenderness, guarding, rebound, rigid Extremities exam: Present: normal inspection, full ROM, normal capillary refill. Absent: tenderness, pedal edema, joint swelling, calf tenderness Back exam: Present: normal inspection Neurological exam: Present: alert, oriented X3, CN II-XII intact Psychiatric exam: Present: normal affect, normal mood Skin exam: Present: warm, dry, intact, normal color. Absent: rash Course Vital Signs 01/02/25 01/02/25 01/02/25 17:05 17:45 19:51 Temperature 98.0 F Pulse Rate 120 H 94 80 Respiratory 20 16 Rate Blood Pressure 156/94 140/87 O2 Sat by Pulse 96 96 Oximetry 01/02/25 01/03/25 20:04 05:38 Temperature 97.8 F Pulse Rate 90 71 Respiratory 18 Rate Blood Pressure 133/93 O2 Sat by Pulse 98 Oximetry - Reevaluation(s) Reevaluation #1: 01/02/25 19:00 Medical records reviewed Reevaluation #2: 01/02/25 20:51 Patient symptoms are improved here in the ER Reevaluation #3: 01/02/25 20:51 Patient informed of results and questions answered Reevaluation #4: Was pt. sent in by a medical professional or institution (, PA, DEPUTY BRAND INSPECTOR, urgent care, hospital, or long-term...) When possible be specific @ -no Did you speak to anyone other than the patient for history (EMS, parent, family, police, friend...)? What history was obtained from this source @ -no Did you review nursing and triage notes (agree or disagree)? Why? @ -agree Are old charts reviewed (outside hosp., previous admission, EMS record, old EKG, old radiological studies, urgent care reports/EKG's, long-term records)? Report findings @ -yes Differential Diagnosis (chest pain, altered mental status, abdominal pain women, abdominal pain men, vaginal bleeding, weakness, fever, dyspnea, syncope, headache, dizziness, GI bleed, back pain, seizure, CVA, palpatations, mental health, musculoskeletal)? @ -prior EKG interpreted by me (3pts min.). @ -yes X-rays interpreted by me (1pt min.). @ -yes n suspected lung mass CT interpreted by me (1pt min.). @ -Yes positive for suspected lung mass U/S interpreted by me (1pt. min.). @ -no What testing was considered but not performed or refused? (CT, X-rays, U/S, labs)? Why? @ -none What meds were considered but not given or refused? Why? @ -none Did you discuss the management of the patient with other professionals (cristy calderon i.e. , PA, DEPUTY BRAND INSPECTOR, lab, RT, psych nurse, child welfare social worker, freezing room worker, teacher, compliance review officer, case filler)? Give summary @ -no Was smoking cessation discussed for >3mins.? @ -no Was critical care preformed (if so, how long)? @ -no Were there social determinants of health that impacted care today? How? (Homelessness, low income, unemployed, alcoholism, drug addiction, transportation, low edu. Level, literacy, decrease access to med. care, usp, rehab)? @ -none Was there de-escalation of care discussed even if they declined (Discuss DNR or withdrawal of care, Hospice)? DNR status @ -no What co-morbidities impacted this encounter? (DM, HTN, Smoking, COPD, CAD, Cancer, CVA, ARF, Chemo, Hep., AIDS, mental health diagnosis, sleep apnea, morbid obesity)? @ -none Was patient admitted / discharged? Hospital course, mention meds given and route, prescriptions, significant lab abnormalities, going to OR and other pertinent info. @ - 59 male to ER with chest pain back pain patient does have right upper lung mass 3.4 cm. Unsure of his cause of pain patient will stay as observation for chest pain with need for back pain Admitted Undiagnosed new problem with uncertain prognosis? @ -no Drug Therapy requiring intensive monitoring for toxicity (Heparin, Nitro, Insulin, Cardizem)? @ -no Were any procedures done? @ -no Diagnosis/symptom? @ -Chest pain and back pain, new lung mass Acute, or Chronic, or Acute on Chronic? @ -Acute Uncomplicated (without systemic symptoms) or Complicated (systemic symptoms)? @ -Complicated Side effects of treatment? @ -no Exacerbation, Progression, or Severe Exacerbation? @ -exacerbation Poses a threat to life or bodily function? How? (Chest pain, [place], [place], pneumonia, PE, COPD, DKA, ARF, appy, cholecystitis, CVA, Diverticulitis, Homicidal, John icidal, threat to staff... and all critical care pts) @ -yes with chest pain back pain Reevaluation #5: Differential Chest Pain: Stable Angina, Unstable Angina, STEMI, NSTEMI Aortic Dissection, Pneumothorax, Musculoskeletal, Esophageal Spasm GERD, Cholecystitis, Pancreatitis, Zoster, this is not meant to be an all-inclusive list. Differential Back Pain: Strain, zoster, cauda equina syndrome, epidural abscess, vertebral osteomyelitis, discitis, fracture, subluxation, disc herniation, DJD, spinal stenosis, dissection, AAA, pancreatitis, peptic ulcer disease, pyelonephritis, kidney stone, this is not meant to be an all-inclusive list. - Consultations Consultation #1: Spoke with Dr. Ibarra who agrees to observe this patient Chest Pain MDM - MDM 59 male to ER with chest pain back pain patient does have right upper lung mass 3.4 cm. Unsure of his cause of pain patient will stay as observation for chest pain with need for back pain Disposition Clinical Impression: Atypical chest pain, Chest pain, Back pain Disposition: ADMITTED IP TO THIS [facility] Condition: Fair Is patient prescribed a controlled substance at d/c from ED?: No Time of Disposition: 20:50
[2025-01-02] MEDS: SODIUM CHLORIDE 0.9% 1,000 ML IV STA (17:45)
[2025-01-02 17:52] LABS: Basophils # (A) 0.1 k/uL (0-0.2); Basophils % (A) 1 %; Eosinophils # (A) 0.2 k/uL (0-0.7); Eosinophils % (A) 2 %; HCT 46.2 % (39.0-53.0); HGB 14.8 gm/dL (13.0-17.5); Lymphocytes # (A) 2.5 k/uL (1.0-4.8); Lymphocytes % (A) 21 %; MCH 30.7 pg (25.0-35.0); MCHC 32.1 g/dL (31.0-37.0); MCV 95.7 fL (80.0-100.0); Mean Platelet Volume 7.6; Monocytes # (A) 0.9 k/uL (0-1.0); Monocytes % (A) 7 %; Neutrophils % (A) 66 %; Platelet Count 401 k/uL (150-450); RBC 4.83 m/uL (4.30-5.90); RDW 13.8 % (11.5-15.5); WBC 12.1 k/uL (3.8-10.6)
[2025-01-02 18:04] LABS: ALT 11 U/L (4-49); AST 18 U/L (17-59); African American GFR (CKD) >90 (>60 ml/min/1.73 sqM); Albumin 4.6 g/dL (3.5-5.0); Alkaline Phosphatase 91 U/L (38-126); Anion Gap 12 mmol/L; Blood Urea Nitrogen 17 mg/dL (9-20); Calcium 10.2 mg/dL (8.4-10.2); Carbon Dioxide 25 mmol/L (22-30); Chloride 98 mmol/L (98-107); Glucose 92 mg/dL (74-99); Lipase 224 U/L (23-300); Magnesium 1.9 mg/dL (1.6-2.3); Non-African American GFR(CKD) >90 (>60 ml/min/1.73 sqM); Sodium 135 mmol/L (137-145); Total Bilirubin 0.4 mg/dL (0.2-1.3); Total Protein 7.4 g/dL (6.3-8.2)
[2025-01-02 18:06] LABS: Partial Thromboplastin Time 23.4 sec (22.0-30.0); Prothrombin Time 10.7 sec (10.0-12.5)
[2025-01-02 18:12] LABS: NT-Pro-B-Type Natriuretic Pept 42 pg/mL
--- NOTE | 2025-01-02 18:33 | CT ---
EXAMINATION TYPE: CT angio chest DATE OF EXAM: 01/02/2025 6:24 PM COMPARISON: None. CLINICAL INDICATION: Male, 59 years old with history of back pain, Chest and back pain x1 month, TECHNIQUE: CT of the chest is performed on a spiral scan at 2 mm thick sections. Study is performed with intravenous contrast timed for evaluation for pulmonary embolism. This will limit additional po rtions of the evaluation. 10mm MIP images reconstructed by the technologist are reviewed on the comp uter in the coronal and sagittal planes. Contrast used:60 mL of Isovue 370 with IV Contrast, (none if empty) Oral contrast used: (none if empty) CT DLP: 185.5 mGycm, Automated exposure control for dose reduction was used. FINDINGS: No persistent filling defects are evident to suggest an acute pulmonary embolism. No mediastinal or hilar adenopathy enlarged by CT criteria is evident. The ascending aorta diameter at the level of the main pulmonary artery is 3.5 cm. The main pulmonary artery diameter at the bifurcation is 2.1 cm. Large emphysematous blebs and bulla are present bilaterally. There is a lobular lung mass within the right upper lung field measuring 3.4 x 3.4 cm. Series 501 image 51 No significant coronary artery calcifications. Limited CT sections were through the upper abdomen. Upper abdomen appears unremarkable. IMPRESSION: 1. No acute pulmonary embolism. 2. 3.4 cm lobular mass right upper lung field. 3. Extensive advanced emphysematous changes. [facility], , 01/02/2025 6:31 PM
[2025-01-02] MEDS: KETOROLAC 15 MG/ML 1 ML VIAL IVP STA (19:12)
[2025-01-02] MEDS: methylPREDNISolone SOD SUCCI 125 MG/2 ML VIAL IV STA (19:12)
[2025-01-02] MEDS: MORPHINE SULFATE 4 MG/ML SYRINGE IVP STA (19:12)
[2025-01-02] MEDS: IPRATROPIUM-ALBUTEROL 3 ML NEB INHALATION STA (19:51)
[2025-01-02] MEDS ORDERED: NALOXONE 0.4 MG/ML 1 ML VIAL IV PRN (20:50)
[2025-01-02] MEDS ORDERED: ONDANSETRON 4 MG/2 ML VIAL IVP PRN (20:50)
[2025-01-02] MEDS: SODIUM CHLORIDE 0.9% 1,000 ML IV SCH (21:47)
[2025-01-03] MEDS: MORPHINE SULFATE 4 MG/ML SYRINGE IVP PRN (08:02)
[2025-01-03] MEDS ORDERED: BACLOFEN 10 MG TAB PO PRN (11:52)
[2025-01-03] MEDS ORDERED: IBUPROFEN 600 MG TAB PO PRN (11:52)
[2025-01-03] MEDS ORDERED: ONDANSETRON ODT 4 MG TAB PO PRN (11:52)
[2025-01-03] MEDS: ALPRAZolam 0.5 MG TAB PO SCH (16:05)
[2025-01-03 16:45] VITALS: BMI 15.7
[2025-01-03] MEDS: traMADol 50 MG TAB PO SCH (20:50)
--- NOTE | 2025-01-04 00:39 | HP ---
HISTORY AND PHYSICAL CHIEF COMPLAINT: Posterior chest pain. HISTORY OF PRESENT ILLNESS: This is another admission for this -[id number] gentleman. He has been having some pain in the back and we have been trying to look for source. His chest x-ray was recently considered slightly abnormal and a CT was ordered, but has not been done yet. He presented to the emergency room because of the increased pain. He has had no hemoptysis. He has been a heavy smoker. REVIEW OF SYSTEMS: Otherwise unremarkable and noncontributory. He is not allergic to any medication. MEDICATIONS: Include, 1. Fosamax. 2. Ventolin. 3. Nicotine patch. 4. Ondansetron. 5. Baclofen. 6. Tramadol. 7. Xanax. 8. He is also on Humira and methotrexate for rheumatoid arthritis. SOCIAL HISTORY: He continues to smoke. PHYSICAL EXAMINATION: VITAL SIGNS: Blood pressure is 116/78 with a pulse of 60, respirations 17. He is afebrile. GENERAL: He appeared to be very slender and in no acute distress. SKIN: Color is normal. Skin is warm, and dry. LYMPHATICS: Lymph nodes are not enlarged. HEAD, EARS, EYES, NOSE, MOUTH AND THROAT: Unremarkable except for dry mucous membranes. CHEST: Demonstrated increased AP diameter with poor breath sounds throughout. CARDIAC: Demonstrated sinus rhythm and no murmurs or extra sounds. ABDOMEN: Soft and nontender. EXTREMITIES: Normal. NEUROLOGICAL: He is intact. ASSESSMENT: He is admitted to the hospital with diagnoses of, 1. Left posterior chest pain. 2. Pulmonary mass. 3. Chronic obstructive pulmonary disease. 4. Rheumatoid arthritis. PLAN: 1. Bed rest. 2. IV fluids. 3. CT of the chest. 4. Consult with Oncology. MMODL / IJN: [id number] /
[2025-01-04] MEDS ORDERED: ALBUTEROL NEBULIZED 2.5 MG/3 ML INHALATION PRN (01:01)
--- NOTE | 2025-01-04 01:08 | P.CNPUL ---
History of Present Illness Consult date: 01/04/25 Requesting physician: Hugh Ibarra Reason for consult: lung mass Chief complaint: Back pain History of present illness: Patient is a 60-year-old male with past medical history significant for chronic obstructive pulmonary disease, former heavy tobacco dependence, DVT anticoagulated on Eliquis, rheumatoid arthritis on methotrexate and Humira injections. His primary care provider is Dr. Ibarra. Presented to emergency department yesterday evening with a chief complaint of thoracic level back pain. Localized to left subscapular area. States this may be related to a back injury sustained while taking care of his sister who has throat cancer some weeks ago. Denies falling. States the pain is severe rated 8/10 on a 10 point numerical scale. Worse with activity. Workup in the emergency department including a chest CT angio which did not show any evidence of acute pulmonary e mbolism. There was a 3.4 cm lobular mass in the right upper lung field. Extensive advanced emphysematous changes. Patient does have known history of COPD. He quit smoking approximately 1 month ago. He does carry a heavy history of tobacco use, approximately 30 to 40 pack years. Denies any known personal or familial history of lung cancer. Does endorse some weight loss over the last couple months. Approximately 10 pounds. Denies any infectious-like symptoms. Endorses chronic mostly dry cough. Denies hemoptysis or significant sputum production. He does have history of rheumatoid arthritis and takes methotrexate and Humira injections. CBC: WBC count 12.1, hemoglobin 14.8, platelets 401. CMP is unremarkable, electrolytes WDL, creatinine 0.76, glucose 92. LFTs not elevated. Troponin less than 0.012. Normal saline infusing at 75 mL/h. Patient currently resting comfortably in bed on room air. Denies any difficulty in breathing. Current most recent vital signs: Afebrile, heart 88 bpm, blood pressure 142/86 mmHg, nontachypneic, SpO2 recorded at 97% on room air. Review of Systems Constitutional: Reports fatigue, Reports poor appetite, Reports weight loss, Denies chills, Denies fever, Denies weakness, Denies weight gain Ears, nose, mouth and throat: Denies dysphagia, Denies headache, Denies nasal congestion, Denies nasal discharge, Denies neck lump, Denies post-nasal drip, Denies sinus pain, Denies sinus pressure, Denies sore throat, Denies voice changes Cardiovascular: Reports chest pain, Denies leg edema, Denies orthopnea, Denies palpitations, Denies paroxysmal nocturnal dyspnea, Denies shortness of breath Respiratory: Reports cough, Denies congestion, Denies cough with sputum, Denies dyspnea, Denies excessive sputum, Denies hemoptysis, Denies home oxygen, Denies wheezing Gastrointestinal: Reports loss of appetite, Denies abdominal pain, Denies constipation, Denies diarrhea, Denies hematochezia, Denies melena, Denies nausea, Denies vomiting Genitourinary: Denies dysuria, Denies hematuria Musculoskeletal: Denies arm numbness/tingling, Denies leg numbness/tingling, Denies limitation of motion, Denies low back pain, Denies shooting arm pain, Denies shooting leg pain Integumentary: Denies rash Neurological: Denies headaches, Denies seizures, Denies syncope Psychiatric: Denies anxiety, Denies depression Hematologic/Lymphatic: Denies lymphadenopathy Past Medical History Past Medical History: COPD, Deep Vein Thrombosis (DVT), Rheumatoid Arthritis (RA) Additional Past Medical History / Comment(s): arthritis, chronic DVT in right leg-takes Eliquis at home, 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 He uses no assistive device. He drives. Smoking Status: Former smoker Past Alcohol Use History: Occasional Past Drug Use History: None Reported - Past Family History Mother Additional Family Medical History / Comment(s): Pt states mother is possibly from cancer. Father Additional Family Medical History / Comment(s): Pt states father is healthy except for alot of hernias/repairs. Medications and Allergies Home Medications Medication Instructions Recorded Confirmed Type Folic Acid 1 mg PO DAILY 05/19/17 01/02/25 History ALPRAZolam [Xanax] 0.5 mg PO TID 01/02/25 01/02/25 History Adalimumab [Humira(Cf) Pen] 40 mg SQ Q14D 01/02/25 01/02/25 History Albuterol Sulfate [Albuterol 1 - 2 puff PO RT-QID PRN 01/02/25 01/02/25 History Sulfate Hfa] Alendronate Sodium [Fosamax] 70 mg PO SA 01/02/25 01/02/25 History Apixaban [Eliquis] 5 mg PO BID 01/02/25 01/02/25 History Baclofen 5 mg PO DAILY PRN 01/02/25 01/02/25 History Ibuprofen [Motrin] 600 mg PO BID PRN 01/02/25 01/02/25 History Nicotine 21Mg/24Hr Patch [Habitrol] 1 patch TRANSDERM DAILY 01/02/25 01/02/25 History Ondansetron [Zofran] 4 mg PO Q6H PRN 01/02/25 01/02/25 History metHOTREXate sodium [Methotrexate] 25 mg PO WE 01/02/25 01/02/25 History traMADol HCL 50 mg PO BID 01/02/25 01/02/25 History Allergies Allergy/AdvReac Type Severity Reaction Status Date / Time codeine Allergy Nausea & Verified 01/02/25 18:59 Vomiting Physical Exam Vitals: Vital Signs Temp Pulse Pulse Resp BP BP Pulse Ox 01/03/25 19:18 97.8 F 88 18 142/86 97 01/03/25 13:01 97.9 F 91 18 152/89 99 01/03/25 07:54 97.6 F 88 19 151/91 100 01/03/25 05:38 97.8 F 71 18 133/93 98 Intake and Output 01/03/25 01/03/25 01/04/25 14:59 22:59 06:59 Intake Total 240 1830 Balance 240 1830 Intake: Intake, IV Titration 750 Amount Sodium Chloride 0.9% 1, 750 000 ml @ 75 mls/hr IV . [id number] [facility] Rx#:[id number] Oral 240 1080 Other: # Voids 2 Weight 49.895 kg 49.895 kg GENERAL EXAM: Alert, 60-year-old male, frail and cachectic, comfortable in no apparent distress. HEAD: Normocephalic and atraumatic EYES: Normal reaction of pupils, equal size. NOSE: Clear with pink turbinates. THROAT: No erythema or exudates. NECK: No masses, no JVD. CHEST: No chest wall deformity. LUNGS: Equal air entry with markedly diminished lung sounds throughout. No crackles, wheeze, rhonchi or focal dullness. On room air. No conversational dyspnea or accessory muscle use.. CVS: S1 and S2 normal with no audible murmur, regular rhythm. No extra heart sounds ABDOMEN: No hepatosplenomegaly, active bowel sounds, no guarding or rigidity. SPINE: No scoliosis or deformity SKIN: No rashes CENTRAL NERVOUS SYSTEM: No focal deficits, tone is normal in all 4 extremities. EXTREMITIES: There is no peripheral edema, clubbing, or cyanosis. Peripheral pulses are intact. Results - Laboratory Findings CBC and BMP: 01/02/25 17:21 01/02/25 17:21 PT/INR, D-dimer PT 10.7 sec (10.0-12.5) 01/02/25 17:21 INR 1.0 (<1.2) 01/02/25 17:21 D-Dimer <0.17 mg/L FEU (<0.60) 01/02/25 17:21 Abnormal lab findings: Abnormal Labs 01/02/25 01/02/25 17:21 17:21 WBC 12.1 H Neutrophils # 8.0 H Sodium 135 L - Diagnostic Findings CT scan - chest: image reviewed Assessment and Plan Assessment: Right upper lobe 3.4 cm lung mass COPD/emphysema, stable Former heavy tobacco dependence, approximately 30-40 pack years History of rheumatoid arthritis, maintained on methotrexate and Humira injections Severe protein calorie malnutrition, BMI 15.8 kg/m History of DVT, maintained chronically on Eliquis Plan: Patient's medications, labs, chest CTA were reviewed Given patient's past medical history and chest CTA findings, malignancy should be considered Will discuss the possibility of bronchoscopy with tissue biopsy with Dr. Sharif Carcamo is currently on hold Medical oncology also consulted We will continue to follow, and additional recommendations are forthcoming I have personally seen and examined the patient, performed the documentation and the assessment and plan as written. Number of minutes spent on the visit:20 Time with Patient: Greater than 30
--- NOTE | 2025-01-04 03:57 | PN ---
PROGRESS NOTE DATE OF SERVICE: 01/03/2025 CHIEF COMPLAINT: Chest pain. HISTORY OF PRESENT ILLNESS: This gentleman is still having pain in his back, and it looks as though there is a lesion in the right upper lobe. PHYSICAL EXAMINATION: LUNGS: Breath sounds are diminished bilaterally. CARDIAC: Normal. IMPRESSION: Probable right upper lobe mass causing back pain. PLAN: Await for CT results of the chest and will also refer him to Oncology. MMODL / IJN: [id number] /
[2025-01-04] MEDS: FOLIC ACID 1 MG TAB PO SCH (09:55)
[2025-01-04] MEDS: NICOTINE 21MG/24HR PATCH TRANSDERM SCH (09:56)
[2025-01-04] MEDS: APIXABAN 5 MG TAB PO SCH (10:12)
--- NOTE | 2025-01-05 00:19 | P.CONS ---
History of Present Illness - Reason for Consult Consult date: 01/04/25 lung mass Requesting physician: Hugh Ibarra - Chief Complaint chest pain, pain under lt scapula - History of Present Illness Mr. Gayle is a 60 yo male pt with an long Hx of smoking, on eliquis for Hx of DVT and mtx for RA who presented to ER with c/o persistent and progressive chest pain and pain under the left scapula, this started late last year, "burning" sensation. CT chest on admit revealed a 3.4cm mass in the RUL, extensive emphysema. Pt denied fevers, sweats, unintentional wt loss, but may have lost a few pounds, no chest pain, new cough, hemoptysis, acute changes in bowel or bladder. He does report recent dizziness and 1 episode of syncopy. No vision changes or falls. Review of Systems 10 point ROS is as stated in HPI Past Medical History Past Medical History: COPD, Deep Vein Thrombosis (DVT), Rheumatoid Arthritis (RA) Additional Past Medical History / Comment(s): arthritis, chronic DVT in right leg-takes Eliquis at home, 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 He uses no assistive device. He drives. Smoking Status: Former smoker Past Alcohol Use History: Occasional Past Drug Use History: None Reported - Past Family History Mother Additional Family Medical History / Comment(s): Pt states mother is possibly from cancer. Father Additional Family Medical History / Comment(s): Pt states father is healthy except for alot of hernias/repairs. Medications and Allergies Home Medications Medication Instructions Recorded Confirmed Type Folic Acid 1 mg PO DAILY 05/19/17 01/02/25 History ALPRAZolam [Xanax] 0.5 mg PO TID 01/02/25 01/02/25 History Adalimumab [Humira(Cf) Pen] 40 mg SQ Q14D 01/02/25 01/02/25 History Albuterol Sulfate [Albuterol 1 - 2 puff PO RT-QID PRN 01/02/25 01/02/25 History Sulfate Hfa] Alendronate Sodium [Fosamax] 70 mg PO SA 01/02/25 01/02/25 History Apixaban [Eliquis] 5 mg PO BID 01/02/25 01/02/25 History Baclofen 5 mg PO DAILY PRN 01/02/25 01/02/25 History Ibuprofen [Motrin] 600 mg PO BID PRN 01/02/25 01/02/25 History Nicotine 21Mg/24Hr Patch [Habitrol] 1 patch TRANSDERM DAILY 01/02/25 01/02/25 Hi story Ondansetron [Zofran] 4 mg PO Q6H PRN 01/02/25 01/02/25 History metHOTREXate sodium [Methotrexate] 25 mg PO WE 01/02/25 01/02/25 History traMADol HCL 50 mg PO BID 01/02/25 01/02/25 History Allergies Allergy/AdvReac Type Severity Reaction Status Date / Time codeine Allergy Nausea & Verified 01/02/25 18:59 Vomiting Physical Exam Vitals: Vital Signs Temp Pulse Resp BP BP Pulse Ox 01/04/25 14:00 98 F 103 H 16 130/78 98 01/04/25 07:51 97.6 F 72 18 144/98 100 01/04/25 01:20 97.6 F 81 20 113/78 98 01/03/25 19:18 97.8 F 88 18 142/86 97 Intake and Output 01/03/25 01/04/25 01/04/25 22:59 06:59 14:59 Intake Total 1830 Balance 1830 Intake: Intake, IV Titration 750 Amount Sodium Chloride 0.9% 1, 750 000 ml @ 75 mls/hr IV . [id number] [facility] Rx#:[id number] Oral 1080 Other: Voiding Method Toilet # Voids 2 2 Weight 49.895 kg - Constitutional General appearance: cooperative, no acute distress, thin - EENT Eyes: anicteric sclerae, EOMI ENT: hearing grossly normal, normal oropharynx - Neck Neck: no lymphadenopathy - Respiratory Respiratory: bilateral: diminished - Cardiovascular Rhythm: regular Heart sounds: normal: S1, S2 Abnormal Heart Sounds: no systolic murmur, no diastolic murmur, no rub, no S3 Gallop, no S4 Gallop, no click, no other leg Peripheral Edema: bilateral: None - Gastrointestinal General gastrointestinal: no absent bowel sounds, no decreased bowel sounds, no distended, no hepatomegaly, no hyperactive bowel sounds, normal bowel sounds, no organomegaly, no rigid, no scaphoid, soft, no splenomegaly, no tenderness, no umbilical hernia, no ventral hernia - Neurologic Neurologic: CNII-XII intact - Musculoskeletal Musculoskeletal: strength equal bilaterally - Psychiatric Psychiatric: A&O x's 3, appropriate affect, intact judgment & insight Results CBC & Chem 7: 01/02/25 17:21 01/02/25 17:21 Chest x-ray: report reviewed CT scan - chest: report reviewed Assessment and Plan (1) Lung mass Current Visit: Yes Status: Acute Priority: High Code(s): R91.8 - OTHER NONSPECIFIC ABNORMAL FINDING OF LUNG FIELD SNOMED Code(s): 001242114 (2) Atypical chest pain Current Visit: Yes Status: Acute Priority: High Code(s): R07.89 - OTHER CHEST PAIN SNOMED Code(s): 494155818 (3) Back pain Current Visit: Yes Status: Acute Priority: High Code(s): M54.9 - DORSALGIA, UNSPECIFIED SNOMED Code(s): 261291341 Plan: Lung mass -presented with pain in chest and under lt scapula, persistent and progressive, present for a few months -Imaging revealed 3.4 cm rt lung mass. This was discussed with pt and sister at bedside. Concerning for malignancy. Recommend further imaging and biopsy. Pt and sister agree with the same. -Pulmonary has seen pt, recommendation for PET scan 1st. Will plan for PET and, based on findings, biopsy will be recommended. Pt agrees with plan -MRI brain ordered for staging as well as reported dizziness and syncopy Pt is ok from an Oncology standpoint to be discharged after MRI resulted and once cleared by Attending and Consulting Physicians. Will sched PET and f/u once discharged
--- NOTE | 2025-01-05 04:48 | PN ---
PROGRESS NOTE DATE OF SERVICE: 01/04/2025 CHIEF COMPLAINT: Lung mass. HISTORY OF PRESENT ILLNESS: This gentleman is stable and awaits further studies and recommendations. PHYSICAL EXAMINATION: CHEST: Clear. CARDIAC: Normal. ABDOMEN: Soft, nontender. IMPRESSION: 1. Carcinoma of the lung. 2. Chronic obstructive pulmonary disease. PLAN: Home once his workup is completed and treatment plan is in place. MMODL / IJN: [id number] /
[2025-01-05] MEDS: metHOTREXate sodium 2.5 MG TAB PO SCH (08:51)
[2025-01-05] MEDS ORDERED: HYDROcodone/APAP 10-325MG 1 EACH TAB PO PRN (10:57)
[2025-01-05] MEDS: SENNOSIDES-DOCUSATE SODIUM 1 EACH TAB PO SCH (11:24)
--- NOTE | 2025-01-05 13:27 | MR ---
EXAMINATION TYPE: MR brain wo/w con DATE OF EXAM: 01/05/2025 12:45 PM COMPARISON: None. CLINICAL INDICATION: Male, 60 years old with history of lung mass, dizziness, syncopy, Lung mass, diz ziness, syncope TECHNIQUE: Multiplanar, multiecho imaging on a 3.0 Meghna magnet is performed through the brain. Stud y is performed within 24 hours of arrival to the hospital.Multiplanar, multiecho imaging on a 3.0 Corina la magnet is performed through the knee. IV Contrast: 5 mL Gadobutrol (None, if empty) FINDINGS: The craniovertebral junction is normal. The pituitary is normal. Diffusion-weighted imaging is performed. No abnormal hyperintensity is present to suggest an acute i ntracranial infarct or acute ischemic change. There is a punctate subcortical white matter change in the left frontal lobe. Signal through the brai n otherwise appears unremarkable. Following contrast administration, no abnormal enhancement is evident. No suspicious vasogenic edema is identified. No changes to suggest metastatic neoplasm. Ventricles and sulci are appropriate for the patient age. Some mucosal thickening is within the right maxillary sinus. Remaining paranasal sinuses and mastoid air cells are clear. IMPRESSION: 1. No suspicious changes to suggest metastasis. 2. No acute intracranial process [facility], , 01/05/2025 1:24 PM
--- NOTE | 2025-01-05 14:12 | P.PN ---
Subjective Progress Note Date: 01/05/25 Patient is a 60-year-old male with past medical history significant for chronic obstructive pulmonary disease, former heavy tobacco dependence, DVT anticoagulated on Eliquis, rheumatoid arthritis on methotrexate and Humira injections. His primary care provider is Dr. Ibarra. Presented to emergency department yesterday evening with a chief complaint of thoracic level back pain. Localized to left subscapular area. States this may be related to a back injury sustained while taking care of his sister who has throat cancer some weeks ago. Denies falling. States the pain is severe rated 8/10 on a 10 point numerical scale. Worse with activity. Workup in the emergency department including a chest CT angio which did not show any evidence of acute pulmonary embolism. There was a 3.4 cm lobular mass in the right upper lung field. Extensive advanced emphysematous changes. Patient does have known history of COPD. He quit smoking approximately 1 month ago. He does carry a heavy history of tobacco use, approximately 30 to 40 pack years. Denies any known personal or familial history of lung cancer. Does endorse some weight loss over the last couple months. Approximately 10 pounds. Denies any infectious-like symptoms. Endorses chronic mostly dry cough. Denies hemoptysis or significant sputum production. He does have history of rheumatoid arthritis and takes methotrexate and Humira injections. CBC: WBC count 12.1, hemoglobin 14.8, platelets 401. CMP is unremarkable, electrolytes WDL, creatinine 0.76, glucose 92. LFTs not elevated. Troponin less than 0.012. Normal saline infusing at 75 mL/h. Patient currently resting comfortably in bed on room air. Denies any difficulty in breathing. Current most recent vital signs: Afebrile, heart 88 bpm, blood pressure 142/86 mmHg, nontachypneic, SpO2 recorded at 97% on room air. The patient is seen today January 05, 2025 in follow-up on the regular medical floor. He is currently sitting up in bed. Awake and alert in no acute d istress. He is maintaining good O2 saturations in the 90s on room air. No worsening shortness of breath, cough or congestion. No hemoptysis. His back pain is better controlled. MRI of the brain revealed no suspicious changes to suggest metastasis. No acute intracranial process. No new labs today. The patient is anticoagulated with Eliquis. Albuterol as needed. NicoDerm patch in place. Normal saline at 75 mL/h. Objective - Vital Signs Vital signs: Vital Signs Temp 97.5 F L 01/05/25 08:00 Pulse 86 01/05/25 08:00 Resp 16 01/05/25 08:00 BP 117/76 01/05/25 08:00 Pulse Ox 100 01/05/25 08:00 FiO2 Intake & Output 01/04/25 01/05/25 01/05/25 18:59 06:59 18:59 Intake Total 1800 780 Balance 1800 780 Intake: Oral 1800 780 Other: Voiding Method Toilet # Voids 3 - Exam GENERAL EXAM: Alert, active, pleasant 60-year-old male patient, on room air oxygen, fairly comfortable in no apparent distress. HEAD: Normocephalic. EYES: Normal reaction of pupils, equal size. NOSE: Clear with pink turbinates. THROAT: No erythema or exudates. NECK: No masses, no JVD. CHEST: No chest wall deformity. LUNGS: Equal air entry with no crackles, wheeze, rhonchi or dullness. CVS: S1 and S2 normal with no audible murmur, regular rhythm. ABDOMEN: No hepatosplenomegaly, normal bowel sounds, no guarding or rigidity. SPINE: No scoliosis or deformity SKIN: No rashes CENTRAL NERVOUS SYSTEM: No focal deficits, tone is normal in all 4 extremities. EXTREMITIES: There is no peripheral edema. No clubbing, no cyanosis. Peripheral pulses are intact. - Labs CBC & Chem 7: 01/02/25 17:21 01/02/25 17:21 Assessment and Plan Assessment: Severe back pain improved Right upper lobe 3.4 cm lung mass COPD/emphysema, stable Former heavy tobacco dependence, approximately 30-40 pack years History of rheumatoid arthritis, maintained on methotrexate and Humira inje ctions Severe protein calorie malnutrition, BMI 15.8 kg/m History of DVT, maintained chronically on Eliquis Plan: The patient was seen and evaluated MRI of the brain and medications reviewed No evidence of brain metastasis Remains stable and on room air oxygen No pulmonary complaints Cleared for discharge Plan is for outpatient PET scan Follow-up with Dr. Farooq in our office in 1 week This patient was seen independently by the pulmonary nurse practitioner addressing pulmonary issues I have personally seen and examined the patient, performed the documentation and the assessment and plan as written. Number of minutes spent on the visit: 24 Dictation was produced using [employer] dictation software. Please excuse any grammatical, word or spelling errors.
--- NOTE | 2025-01-05 23:00 | P.PN ---
Subjective Progress Note Date: 01/05/25 Principal diagnosis: Lung mass In follow-up today patient is reporting good control of pain. He reports a recent soft, easily passable bowel movement. He denies any current bleeding. He feels that he is ready for discharge. Objective - Vital Signs Vital signs: Vital Signs Temp 97.5 F L 01/05/25 08:00 Pulse 86 01/05/25 08:00 Resp 16 01/05/25 08:00 BP 117/76 01/05/25 08:00 Pulse Ox 100 01/05/25 08:00 FiO2 Intake & Output 01/04/25 01/05/25 01/05/25 18:59 06:59 18:59 Intake Total 1800 780 Balance 1800 780 Intake: Oral 1800 780 Other: Voiding Method Toilet # Voids 3 - Constitutional General appearance: Present: cooperative, no acute distress, thin - EENT Eyes: Present: anicteric sclerae, EOMI ENT: Present: hearing grossly normal - Respiratory Respiratory: bilateral: diminished - Cardiovascular Rhythm: regular Heart sounds: normal: S1, S2 Abnormal Heart Sounds: Absent: systolic murmur, diastolic murmur, rub, S3 Gallop, S4 Gallop, click, other - Peripheral edema leg Peripheral Edema: bilateral: None - Gastrointestinal General gastrointestinal: Present: soft - Integumentary Integumentary: Present: normal - Neurologic Neurologic: Present: CNII-XII intact - Musculoskeletal Musculoskeletal: Present: strength equal bilaterally - Psychiatric Psychiatric: Present: A&O x's 3, appropriate affect, intact judgment & insight - Labs CBC & Chem 7: 01/02/25 17:21 01/02/25 17:21 - Imaging and Cardiology MRI - head: report reviewed Assessment and Plan (1) Lung mass Current Visit: Yes Status: Acute Priority: High Code(s): R91.8 - OTHER NONSPECIFIC ABNORMAL FINDING OF LUNG FIELD SNOMED Code(s): 047420922 (2) Atypical chest pain Current Visit: Yes Status: Acute Priority: High Code(s): R07.89 - OTHER CHEST PAIN SNOMED Code(s): 392694895 (3) Back pain Current Visit: Yes Status: Acute Priority: High Code(s): M54.9 - DORSALGIA, UNSPECIFIED SNOMED Code(s): 229410775 Plan: Lung mass -presented with pain in chest and under lt scapula, persistent and progressive, present for a few months -Imaging revealed 3.4 cm rt lung mass. This was discussed with pt and sister at bedside. Concerning for malignancy. Recommend further imaging and biopsy. Pt and sister agree with the same. -Pulmonary has seen pt, recommendation for PET scan 1st. Extensive emphysema does put him at high risk for procedures, looking for other possible targets. - Orders to schedule a PET scan will be sent once patient is discharged. Based on findings, biopsy will be recommended. Pt agrees with plan -MRI brain was negative for malignancy Pain on admission - Patient's pain controlled on IV analgesics. - Reviewed the case with Pharm.D. Conversion from IV to oral pain medication. - Once patient is going to be discharged, we will send a prescription for oral pain medication. - Patient was strongly encouraged to continue aggressive bowel regimen to avoid narcotic induced constipation after discharge. He verbalized understanding. Pt is ok from an Oncology standpoint to be discharged after MRI resulted and once cleared by Attending and Consulting Physicians. Will sched PET and f/u once discharged
--- NOTE | 2025-01-06 04:17 | PN ---
PROGRESS NOTE CHIEF COMPLAINT: CA of the lung. HISTORY OF PRESENT ILLNESS: This gentleman is doing fairly well. He might be able to go home in the next day or so. PHYSICAL EXAMINATION: CHEST: Clear. CARDIAC: Normal. IMPRESSION: 1. Carcinoma of the lung. 2. Chronic obstructive pulmonary disease. PLAN: Await clearance for discharge and outpatient treatment. MMODL / JERRYN: [id number] /
[2025-01-06 07:42] VITALS: RESP 18
--- NOTE | 2025-01-06 12:14 | P.PN ---
Subjective Progress Note Date: 01/06/25 Patient is a 60-year-old male with past medical history significant for chronic obstructive pulmonary disease, former heavy tobacco dependence, DVT anticoagulated on Eliquis, rheumatoid arthritis on methotrexate and Humira injections. His primary care provider is Dr. Ibarra. Presented to emergency department yesterday evening with a chief complaint of thoracic level back pain. Localized to left subscapular area. States this may be related to a back injury sustained while taking care of his sister who has throat cancer some weeks ago. Denies falling. States the pain is severe rated 8/10 on a 10 point numerical scale. Worse with activity. Workup in the emergency department including a chest CT angio which did not show any evidence of acute pulmonary embolism. There was a 3.4 cm lobular mass in the right upper lung field. Extensive advanced emphysematous changes. Patient does have known history of COPD. He quit smoking approximately 1 month ago. He does carry a heavy history of tobacco use, approximately 30 to 40 pack years. Denies any known personal or familial history of lung cancer. Does endorse some weight loss over the last couple months. Approximately 10 pounds. Denies any infectious-like symptoms. Endorses chronic mostly dry cough. Denies hemoptysis or significant sputum production. He does have history of rheumatoid arthritis and takes methotrexate and Humira injections. CBC: WBC count 12.1, hemoglobin 14.8, platelets 401. CMP is unremarkable, electrolytes WDL, creatinine 0.76, glucose 92. LFTs not elevated. Troponin less than 0.012. Normal saline infusing at 75 mL/h. Patient currently resting comfortably in bed on room air. Denies any difficulty in breathing. Current most recent vital signs: Afebrile, heart 88 bpm, blood pressure 142/86 mmHg, nontachypneic, SpO2 recorded at 97% on room air. The patient is seen today January 05, 2025 in follow-up on the regular medical floor. He is currently sitting up in bed. Awake and alert in no acute d istress. He is maintaining good O2 saturations in the 90s on room air. No worsening shortness of breath, cough or congestion. No hemoptysis. His back pain is better controlled. MRI of the brain revealed no suspicious changes to suggest metastasis. No acute intracranial process. No new labs today. The patient is anticoagulated with Eliquis. Albuterol as needed. NicoDerm patch in place. Normal saline at 75 mL/h. The patient is seen today January 06, 2025 in follow-up on the regular medical floor. He is awake and alert in no acute distress. Sitting up in bed having breakfast. Denies any shortness of breath, cough or congestion. Denies any pain today. Continues to maintain good O2 saturations in the 90s on room air. He is anticoagulated with Eliquis. NicoDerm patch in place. [place] for pain control. No new labs today. Objective - Vital Signs Vital signs: Vital Signs Temp 97.7 F 01/06/25 07:18 Pulse 89 01/06/25 07:18 Resp 18 01/06/25 07:18 BP 108/74 01/06/25 07:18 Pulse Ox 99 01/06/25 07:18 FiO2 Intake & Output 01/05/25 01/06/25 01/06/25 18:59 06:59 18:59 Intake Total 300 540 Balance 300 540 Intake: Intake, IV Titration 300 Amount Sodium Chloride 0.9% 1, 300 000 ml @ 75 mls/hr IV . [id number] [facility] Rx#:[id number] Oral 540 Other: # Voids 2 - Exam GENERAL EXAM: Alert, pleasant 60-year-old male, on room air oxygen, comfortable in no apparent distress. HEAD: Normocephalic. EYES: Normal reaction of pupils, equal size. NOSE: Clear with pink turbinates. THROAT: No erythema or exudates. NECK: No masses, no JVD. CHEST: No chest wall deformity. LUNGS: Equal air entry with no crackles, wheeze, rhonchi or dullness. CVS: S1 and S2 normal with no audible murmur, regular rhythm. ABDOMEN: No hepatosplenomegaly, normal bowel sounds, no guarding or rigidity. SPINE: No scoliosis or deformity SKIN: No rashes CENTRAL NERVOUS SYSTEM: No focal deficits, tone is normal in all 4 extremities. EXTREMITIES: There is no peripheral edema. No clubbing, no cyanosis. Peripheral pulses are intact. - Labs CBC & Chem 7: 01/02/25 17:21 01/02/25 17:21 Assessment and Plan Assessment: Severe back pain, improved Right upper lobe 3.4 cm lung mass COPD/emphysema, stable Former heavy tobacco dependence, approximately 30-40 pack years History of rheumatoid arthritis, maintained on methotrexate and Humira injections Severe protein calorie malnutrition, BMI 15.8 kg/m History of DVT, maintained chronically on Eliquis Plan: The patient was seen and evaluated Remains stable and on room air oxygen Anticoagulated with Eliquis Back pain is better controlled Sal[place] as needed for pain control NicoDerm patch in place Educated again regarding smoking cessation Plan is for outpatient PET scan Follow-up with Dr. Farooq in our office in 1 week This patient was seen independently by the pulmonary nurse practitioner addressing pulmonary issues I have personally seen and examined the patient, performed the documentation and the assessment and plan as written. Number of minutes spent on the visit: 23 Dictation was produced using [employer] dictation software. Please excuse any grammatical, word or spelling errors.
[2025-01-06 12:39] VITALS: BP 112/59; PULSE 123; TEMP 98.1
--- NOTE | 2025-01-06 14:15 | DS ---
DISCHARGE SUMMARY CHIEF COMPLAINT: Back pain. HISTORY OF PRESENT ILLNESS AND PHYSICAL EXAM: Details of this man's history and physical can be found in the initial workup. LABORATORY STUDIES: While he was in the hospital, he had laboratory studies, details of which can be found in the laboratory section of his chart. COURSE IN THE HOSPITAL: After admission he was placed on bedrest, started on intravenous fluids and had workup for his back pain and was found to have a pulmonary neoplasm. He was seen by Pulmonology and Oncology. His workup on an inpatient basis was completed. It was felt that he could go home for continued workup and treatment as an outpatient. FINAL DIAGNOSES: 1. Carcinoma of the lung. 2. Chronic obstructive pulmonary disease. OPERATIONS: None. CONSULTATIONS: Pulmonology and Oncology. MMODL / IJN: [id number] /
--- NOTE | 2025-01-06 14:59 | P.PN ---
Subjective Progress Note Date: 01/06/25 Principal diagnosis: Lung mass In follow-up today patient is reporting good control of pain, no worsening SOB, chest pain, he can ambulate without assistive device. Objective - Vital Signs Vital signs: Vital Signs Temp 98.1 F 01/06/25 12:28 Pulse 123 H 01/06/25 12:28 Resp 18 01/06/25 12:28 BP 112/59 01/06/25 12:28 Pulse Ox 97 01/06/25 12:28 FiO2 Intake & Output 01/05/25 01/06/25 01/06/25 18:59 06:59 18:59 Intake Total 300 540 Balance 300 540 Intake: Intake, IV Titration 300 Amount Sodium Chloride 0.9% 1, 300 000 ml @ 75 mls/hr IV . [id number] [facility] Rx#:[id number] Oral 540 Other: # Voids 2 - Constitutional General appearance: Present: cooperative, no acute distress, thin - EENT Eyes: Present: anicteric sclerae, EOMI ENT: Present: hearing grossly normal - Respiratory Details: resp unlabored at rest - Cardiovascular Details: skin warm, well perfused - Peripheral edema leg Peripheral Edema: bilateral: None - Integumentary Integumentary Comment(s): forearm bruising - Neurologic Neurologic: Present: CNII-XII intact - Musculoskeletal Musculoskeletal: Present: strength equal bilaterally - Psychiatric Psychiatric: Present: A&O x's 3, appropriate affect, intact judgment & insight - Labs CBC & Chem 7: 01/02/25 17:21 01/02/25 17:21 Assessment and Plan (1) Lung mass Current Visit: Yes Status: Acute Priority: High Code(s): R91.8 - OTHER NONSPECIFIC ABNORMAL FINDING OF LUNG FIELD SNOMED Code(s): 534476945 (2) Atypical chest pain Current Visit: Yes Status: Acute Priority: High Code(s): R07.89 - OTHER CHEST PAIN SNOMED Code(s): 930953575 (3) Back pain Current Visit: Yes Status: Acute Priority: High Code(s): M54.9 - VINH SALGIA, UNSPECIFIED SNOMED Code(s): 492267649 Plan: Lung mass -presented with pain in chest and under lt scapula, persistent and progressive, present for a few months -Imaging revealed 3.4 cm rt lung mass. This was discussed with pt and sister at bedside. Concerning for malignancy. Recommend further imaging and biopsy. Pt and sister agree with the same. -Pulmonary has seen pt, recommendation for PET scan 1st. Extensive emphysema does put him at high risk for procedures, looking for other possible targets. - Orders to schedule a PET scan sent as pt is going to be discharged. He will be contacted with appt date and time. Based on findings, biopsy will be recommended. F/U for results, diagnosis, prognosis, treatment options. Pt agrees with plan -MRI brain negative for malignancy Pain on admission -Pain controlled on home med, occasional breakthrough -Rx for oral norco for breakthrough pain sent. -Patient was strongly encouraged to continue aggressive bowel regimen to avoid narcotic induced constipation after discharge. He verbalized understanding. Pt is ok from an Oncology standpoint to be discharged after MRI resulted and once cleared by Attending and Consulting Physicians.
== END 2025-01-06 15:09 | disposition home or self-care (01) ==
LOC: EC 17:04 → INTOOBSV 20:50 → 5NMEDONC 20:50
PROVIDERS: ADMIT Family Medicine; ATTEND Family Medicine
DX: R07.89 Other chest pain (principal); M54.6 Pain in thoracic spine; C34.90 Malignant neoplasm of unspecified part of unspecified bronchus or lung; J43.9 Emphysema, unspecified; M06.9 Rheumatoid arthritis, unspecified; F41.9 Anxiety disorder, unspecified; E43 Unspecified severe protein-calorie malnutrition; Z68.1 Body mass index [BMI] 19.9 or less, adult; F17.200 Nicotine dependence, unspecified, uncomplicated; Z86.718 Personal history of other venous thrombosis and embolism; Z79.01 Long term (current) use of anticoagulants; Z79.899 Other long term (current) drug therapy; Z79.83 Long term (current) use of bisphosphonates; Z88.5 Allergy status to narcotic agent
CPT/HCPCS: 96376 ×3; 96361; 96374; 96375; 99285; 36415; 94640; 93005; 85379; 83880; 80053; 83690; 83735; 84484; 85025; 85610; 85730; 71275; 70553; G0378 ×5; S4990 ×3; J2270 ×4; J8610; J1885; Q9967; A9585; J2919